=== PATIENT | female | born 1935 | race Caucasian/White ===

== ENCOUNTER 2017-05-09 10:31 | Inpatient (IN) | payer MEDICARE ==
[2017-05-09] VITALS (7 sets, daily range): BP systolic 111–185; BP diastolic 53–81; PULSE 68–89; RESP 16–18; TEMP 97.7–98.2; O2SAT 97–100
[~2017-05-09] VITALS: Ht 157.5 cm; Wt 94.4 kg
[~2017-05-09 10:31] MED LIST: ALPR0.5T3 PO; ASPI325T PO; CYAN100017 PO; FLON0.053; HYDR-1530 PO; HYDR-2768 PO; MAGN500T4 PO; MECL25CH PO; MULT-65 PO; ONDA4TAB7 PO; PROBCAP4 PO; ROPI2TAB23 PO; VITA400D PO
[2017-05-09] MEDS ORDERED: ZOFR8TAB PO (11:16)
[2017-05-09] MEDS ORDERED: FLUT1SPR5 EACH NARE (11:16)
[2017-05-09] MEDS ORDERED: ALDA50TA2 PO (11:16)
[2017-05-09] MEDS ORDERED: ASPI1TAB73 PO (11:16)
[2017-05-09] MEDS ORDERED: APIX5TAB PO (11:16)
[2017-05-09] MEDS ORDERED: REQU5TAB PO (11:16)
[2017-05-09] MEDS ORDERED: PYRI100T PO (11:16)
[2017-05-09] MEDS ORDERED: POTA10TA2 PO (11:16)
[2017-05-09] MEDS ORDERED: HYDR-3366 PO (11:16)
[2017-05-09] MEDS ORDERED: BUME1TAB PO (11:16)
[2017-05-09] MEDS ORDERED: PROT40TA PO (11:16)
[2017-05-09] MEDS ORDERED: METO25TA3 PO (11:16)
[2017-05-09] MEDS ORDERED: MAXA10TA2 PO (11:16)
[2017-05-09] MEDS ORDERED: LIPI40TA PO (11:16)
[2017-05-09] MEDS ORDERED: ESSE250T PO (11:16)
[2017-05-09] MEDS ORDERED: SODIUM CHLORIDE 0.9% FLUSH 10 ML FLUSH IVF PRN (11:30)
--- NOTE | 2017-05-09 11:40 | PD ---
HPI Chief Complaint: Syncope/Near-Syncope Time Seen by Provider: 10:50 Travel History International Travel<30 days: No Contact w/Intl Traveler<30days: No Traveled to known affect area: No History of Present Illness HPI Patient is an 82-year-old female who presents to emergency room with her son with multiple complaints. Patient reports that since last night, she had 3 "blackout spells." Patient reports that she woke up in the middle of night and was trying to get out of the bed, patient reports that she got out of bed slowly and ended up falling and hitting her face on the bottom foot of the bed. Reports that this happened twice last night. Reports that when she had her black out spells, she is "out" for about 1 minute and then wakes up on the floor. Reports that she lives at home by herself and has had trouble getting herself up because she has increased weakness after she has these episodes. She reports that she has had multiple syncopal episodes throughout the past few months, reports that she thinks that the syncopal episodes have been ongoing since she had her heart valve replacement by Dr. Rodrigues in December 2016@ [facility]. Patient denies any chest pain or shortness of breath or headaches and these episodes. 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 Reports that she has been admitted to the hospital twice for a week for IV antibiotics for treatment of her leg cellulitis, that after she leaves the hospital, the cellulitis will return. Patient did see an infectious disease doctor who told her that she did not have lower extremity cellulitis. Patient reports that she was seen at [facility] at the end of April for her blackout spells and for her lower extremity edema and redness, she was diagnosed with cellulitis and was sent home with a prescription for doxycycline which she has 3 days left of antibiotic treatment. Patient denies any fevers or chills, denies any nausea or vomiting this time. Patient with no other complaints. PFSH Past Medical History Hx Anticoagulant Therapy: Yes (ELIQUIS) Cancer: No Cardiovascular Problems: Yes Diabetes: No Endocrine: No Gastrointestinal Disorders: No Genitourinary: No Hepatitis: No Hiatal Hernia: No Hypertension: Yes Immune Disorder: Yes (fibromyalgia ) Musculoskeletal: Yes (fibromyalgia, arthritis ) Neurologic: Yes (hx of stroke ) Respiratory: No Thyroid Disease: Yes (when ) ?: Not Menopausal: Yes Past Surgical History AICD: No Cardiac Surgery: No Ear Surgery: Yes (PE tubes x 10 ) Eye Surgery: Yes (bilateral chalazion sx ) Genitourinary Surgery: Yes (hysterectom 1976) Joint Replacement: Yes (R knee, L shoulder ) Oral Surgery: No Pacemaker: No Thoracic Surgery: No Other Surgery: Yes Social History Alcohol Use: No Tobacco Use: No Substance Use: No Allergies-Medications (Allergen,Severity, Reaction): Coded Allergies: Biaxin (Verified Allergy, Severe, nausea, vomiting, 04/03/14) Celebrex (Verified Allergy, Intermediate, hives, 04/03/14) Percocet (Verified Allergy, Intermediate, hives, 04/03/14) Vioxx (Verified Allergy, Intermediate, hives, 04/03/14) Reported Meds & Prescriptions Reported Meds & Active Scripts Active Reported Magnesium 250 Mg Tab 250 Mg PO BID Vitamin B-6 (Pyridoxine HCl) 100 Mg Tab 100 Mg PO DAILY Potassium Chloride ER (Potassium Chloride) 10 Meq Tab 20 Meq PO BID Bumetanide 1 Mg Tab 1 Mg PO DAILY Eliquis (Apixaban) 5 Mg Tab 5 Mg PO BID Requip (Ropinirole) 5 Mg Tab 5 Mg PO TID Lipitor (Atorvastatin Calcium) 40 Mg Tab 40 Mg PO HS Protonix (Pantoprazole Sodium) 40 Mg Tab 40 Mg PO TID PRN Metoprolol Tartrate 25 Mg Tab 25 Mg PO BID Maxalt (Rizatriptan Benzoate) 10 Mg Tab 10 Mg PO AT ONSET PRN May repeat 1 time in 2hrs if 1st dose ineffective Zofran (Ondansetron HCl) 8 Mg Tab 8 Mg PO TID PRN [place] (Hydrocodone-Acetaminophen) 10-325 Mg Tab 1 Tab PO Q6H PRN Caitlin Aspirin EC Low Dose (Aspirin) 81 Mg Tabdr 81 Mg PO DAILY Aldactone (Spironolactone) 50 Mg Tab 50 Mg PO BID Flonase Nasal Ethel (Fluticasone Nasal Ethel) 50 Mcg/Act Ethel 2 Ethel EACH NARE DAILY Review of Systems General / Constitutional: No: Fever, Chills Eyes: No: Visual changes HENT: Positive: Headaches, Lightheadedness Cardiovascular: No: Chest Pain or Discomfort, Palpitations, Irregular Rhythm, Tachycardia Respiratory: No: Cough, Shortness of Breath Gastrointestinal: No: Abdominal Pain Genitourinary: No: Dysuria Musculoskeletal: No: Pain Skin: Positive Other (LE edema b/l ), No Rash Neurologic: Positive: Weakness, Dizziness, Syncope Psychiatric: No: Depression Endocrine: No: Polydipsia Hematologic/Lymphatic: No: Easy Bruising Physical Exam Narrative GENERAL: No acute distress, nontoxic SKIN: Focused skin assessment warm/dry. Patient with superfical abrasion to left side of face HEAD: Atraumatic. Normocephalic. EYES: Pupils equal and round. No scleral icterus. No injection or drainage. ENT: No nasal bleeding or discharge. Mucous membranes pink and moist. NECK: Trachea midline. No JVD. CARDIOVASCULAR: Regular rate and rhythm. No murmur appreciated. RESPIRATORY: No accessory muscle use. Clear to auscultation. Breath sounds equal bilaterally. GASTROINTESTINAL: Abdomen soft, non-tender, nondistended. Hepatic and splenic margins not palpable. MUSCULOSKELETAL: No obvious deformities. No clubbing. No cyanosis. +3 Edema b/ l with increased redness and warmth to b/l le's, patient has increased warmth to RLE, pulses intact, neurovascularly intact NEUROLOGICAL: Awake and alert. No obvious cranial nerve deficits. Motor grossly within normal limits. Normal speech. PSYCHIATRIC: Appropriate mood and affect; insight and judgment normal. Data Data Last Documented VS Vital Signs Date Time Temp Pulse Resp B/P Pulse Ox O2 Delivery O2 Flow Rate FiO2 05/09/17 11:28 97 Nasal Cannula 2 05/09/17 10:57 98.0 79 18 185/81 Orders Electrocardiogram (05/09/17 ) Complete Blood Count With Diff (05/09/17 11:25) Comprehensive Metabolic Panel (05/09/17 11:25) Magnesium (Mg) (05/09/17 11:25) B-Type Natriuretic Peptide (05/09/17 11:25) Ckmb (Isoenzyme) Profile (05/09/17 11:25) Troponin I (05/09/17 11:25) Act Partial Throm Time (Ptt) (05/09/17 11:25) Prothrombin Time / Inr (Pt) (05/09/17 11:25) Urinalysis - C+S If Indicated (05/09/17 11:25) Chest, Single Ap (05/09/17 11:25) Ct Brain W/O Iv Contrast(Rout) (05/09/17 11:25) Ecg Monitoring (05/09/17 11:25) Iv Access Insert/Monitor (05/09/17 11:25) Oximetry (05/09/17 11:25) Sodium Chloride 0.9% Flush (Ns Flush) (05/09/17 11:30) CKMB (05/09/17 11:32) CKMB% (05/09/17 11:32) Orthostatic Vital Signs (05/09/17 13:04) Labs Laboratory Tests Test 05/09/17 05/09/17 11:32 11:44 White Blood Count 10.2 TH/MM3 Red Blood Count 4.12 MIL/MM3 Hemoglobin 11.1 GM/DL Hematocrit 35.1 % Mean Corpuscular Volume 85.3 FL Mean Corpuscular Hemoglobin 26.9 PG Mean Corpuscular Hemoglobin 31.5 % Concent Red Cell Distribution Width 16.5 % Platelet Count 262 TH/MM3 Mean Platelet Volume 7.2 FL Neutrophils (%) (Auto) 68.1 % Lymphocytes (%) (Auto) 22.7 % Monocytes (%) (Auto) 8.5 % Eosinophils (%) (Auto) 0.2 % Basophils (%) (Auto) 0.5 % Neutrophils # (Auto) 6.9 TH/MM3 Lymphocytes # (Auto) 2.3 TH/MM3 Monocytes # (Auto) 0.9 TH/MM3 Eosinophils # (Auto) 0.0 TH/MM3 Basophils # (Auto) 0.1 TH/MM3 CBC Comment DIFF FINAL Differential Comment Prothrombin Time 11.1 SEC Prothromb Time International 1.0 RATIO Ratio Activated Partial 27.5 SEC Thromboplast Time Sodium Level 141 MEQ/L Potassium Level 3.7 MEQ/L Chloride Level 109 MEQ/L Carbon Dioxide Level 24.6 MEQ/L Anion Gap 7 MEQ/L Blood Urea Nitrogen 25 MG/DL Creatinine 0.72 MG/DL Estimat Glomerular Filtration 78 ML/MIN Rate Random Glucose 99 MG/DL Calcium Level 9.5 MG/DL Magnesium Level 1.9 MG/DL Total Bilirubin 0.5 MG/DL Aspartate Amino Transf 27 U/L (AST/SGOT) Alanine Aminotransferase 24 U/L (ALT/SGPT) Alkaline Phosphatase 112 U/L Total Creatine Kinase 150 U/L Creatine Kinase MB 4.2 NG/ML Troponin I LESS THAN 0.02 NG/ML B-Type Natriuretic Peptide 101 PG/ML Total Protein 7.1 GM/DL Albumin 3.4 GM/DL Urine Color YELLOW Urine Turbidity HAZY Urine pH 5.5 Urine Specific [place] 1.033 Urine Protein TRACE mg/dL Urine Glucose (UA) NEG mg/dL Urine Ketones TRACE mg/dL Urine Occult Blood NEG Urine Nitrite NEG Urine Bilirubin NEG Urine Urobilinogen LESS THAN 2.0 MG/DL Urine Leukocyte Esterase TRACE Urine RBC 2 /hpf Urine WBC 3 /hpf Urine Squamous Epithelial 5 /hpf Cells Urine Calcium Oxalate Crystals FEW /hpf Urine Mucus FEW /lpf Microscopic Urinalysis Comment CULT NOT INDICATED MDM Medical Decision Making Medical Screen Exam Complete: Yes Emergency Medical Condition: Yes Interpretation(s) EKG at 11:00: NSR at 72bpm, qt/qtc: 423/448, rbbb, no acute st or t wave changes Vital Signs Date Time Temp Pulse Resp B/P Pulse Ox O2 Delivery O2 Flow Rate FiO2 05/09/17 11:28 97 Nasal Cannula 2 05/09/17 10:57 98.0 79 18 185/81 99 05/09/17 10:54 86 18 98 Room Air 05/09/17 10:35 98.2 89 16 143/68 98 Differential Diagnosis Differential includes intracranial hemorrhage, arrhythmia, ACS, pneumonia, cellulitis, infection, electrolyte abnormality Narrative Course 82-year-old female who presents to emergency room with multiple complaints. Patient reports that she had 3 syncopal episodes last night, that she did fall and hit her head on the edge of her bed. Patient reports loss of consciousness for only a minute, reports that she currently is on Eliquis. Patient also complaining of increased redness and swelling to her lower extremities, reports history of multiple DVTs in the past, redness has been there since August 2016 reports that she's been treated multiple times for cellulitis. Vital Signs Date Time Temp Pulse Resp B/P Pulse Ox O2 Delivery O2 Flow Rate FiO2 05/09/17 11:28 97 Nasal Cannula 2 05/09/17 10:57 98.0 79 18 185/81 99 05/09/17 10:54 86 18 98 Room Air 05/09/17 10:35 98.2 89 16 143/[address] of the head, will obtain lab work including cardiac enzymes, x -ray chest ordered. Vital Signs Date Time Temp Pulse Resp B/P Pulse Ox O2 Delivery O2 Flow Rate FiO2 05/09/17 11:28 97 Nasal Cannula 2 05/09/17 10:57 98.0 79 18 185/81 99 05/09/17 10:54 86 18 98 Room Air 05/09/17 10:35 98.2 89 16 143/68 98 Laboratory Tests Test 05/09/17 05/09/17 11:32 11:44 White Blood Count 10.2 TH/MM3 (4.0-11.0) Red Blood Count 4.12 MIL/MM3 (4.00-5.30) Hemoglobin 11.1 GM/DL (11.6-15.3) Hematocrit 35.1 % (35.0-46.0) Mean Corpuscular Volume 85.3 FL (80.0-100.0) Mean Corpuscular Hemoglobin 26.9 PG (27.0-34.0) Mean Corpuscular Hemoglobin 31.5 % Concent (32.0-36.0) Red Cell Distribution Width 16.5 % (11.6-17.2) Platelet Count 262 TH/MM3 (150-450) Mean Platelet Volume 7.2 FL (7.0-11.0) Neutrophils (%) (Auto) 68.1 % (16.0-70.0) Lymphocytes (%) (Auto) 22.7 % (9.0-44.0) Monocytes (%) (Auto) 8.5 % (0.0-8.0) Eosinophils (%) (Auto) 0.2 % (0.0-4.0) Basophils (%) (Auto) 0.5 % (0.0-2.0) Neutrophils # (Auto) 6.9 TH/MM3 (1.8-7.7) Lymphocytes # (Auto) 2.3 TH/MM3 (1.0-4.8) Monocytes # (Auto) 0.9 TH/MM3 (0-0.9) Eosinophils # (Auto) 0.0 TH/MM3 (0-0.4) Basophils # (Auto) 0.1 TH/MM3 (0-0.2) CBC Comment DIFF FINAL Differential Comment Prothrombin Time 11.1 SEC (9.8-11.6) Prothromb Time International 1.0 RATIO Ratio Activated Partial 27.5 SEC Thromboplast Time (24.3-30.1) Sodium Level 141 MEQ/L (136-145) Potassium Level 3.7 MEQ/L (3.5-5.1) Chloride Level 109 MEQ/L (98-107) Carbon Dioxide Level 24.6 MEQ/L (21.0-32.0) Anion Gap 7 MEQ/L (5-15) Blood Urea Nitrogen 25 MG/DL (7-18) Creatinine 0.72 MG/DL (0.50-1.00) Estimat Glomerular Filtration 78 ML/MIN (>89) Rate Random Glucose 99 MG/DL (74-106) Calcium Level 9.5 MG/DL (8.5-10.1) Magnesium Level 1.9 MG/DL (1.5-2.5) Total Bilirubin 0.5 MG/DL (0.2-1.0) Aspartate Amino Transf 27 U/L (15-37) (AST/SGOT) Alanine Aminotransferase 24 U/L (10-53) (ALT/SGPT) Alkaline Phosphatase 112 U/L (45-117) Total Creatine Kinase 150 U/L (26-192) Creatine Kinase MB 4.2 NG/ML (0.5-3.6) Troponin I LESS THAN 0.02 NG/ML (0.02-0.05) B-Type Natriuretic Peptide 101 PG/ML (0-100) Total Protein 7.1 GM/DL (6.4-8.2) Albumin 3.4 GM/DL (3.4-5.0) Urine Color YELLOW (YELLW/STRAW) Urine Turbidity HAZY (CLEAR) Urine pH 5.5 (5.0-8.5) Urine Specific [place] 1.033 (1.002-1.035) Urine Protein TRACE mg/dL (NEG-TRACE) Urine Glucose (UA) NEG mg/dL (NEG) Urine Ketones TRACE mg/dL (NEG) Urine Occult Blood NEG (NEG) Urine Nitrite NEG (NEG) Urine Bilirubin NEG (NEG) Urine Urobilinogen LESS THAN 2.0 MG/DL (LESS THAN 2.0) Urine Leukocyte Esterase TRACE (NEG) Urine RBC 2 /hpf (0-3) Urine WBC 3 /hpf (0-5) Urine Squamous Epithelial 5 /hpf (0-5) Cells Urine Calcium Oxalate Crystals FEW /hpf (NONE) Urine Mucus FEW /lpf (OCC) Microscopic Urinalysis Comment CULT NOT INDICATED Last Impressions Head CT 05/09/17 1125 Signed Impressions: Service Date/Time: Tuesday, May 09, 2017 12:21 - CONCLUSION: 1. 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 2. Nothing acute Ibrahima Pompa MD Chest X-Ray 05/09/17 1125 Signed Impressions: Service Date/Time: Tuesday, May 09, 2017 11:34 - CONCLUSION: Normal examination status post median sternotomy. Jabier Pringle MD I reviewed all labs and all studies with patient in detail, patient observation for syncope evaluation. I also discussed with Dr. Flowers consideration for consideration for ID consult as patient has redness and swelling to b/l le's since August 2016. Plan to hold on antibiotic treatment at this time as patient is currently receiving doxycycline for her leg cellulitis. Patient has been pancultured Dr. Flowers accepts pt to service Physician Communication Physician Communication case reviewed with dr. silverio who accepts pt to service Diagnosis Primary Impression: Syncope and collapse Additional Impressions: Leg edema Cellulitis of leg, right Admitting Information Admitting Physician Requests: Observation Sylvie Arias DO May 09, 2017 11:40
[2017-05-09 11:56] LABS: AUTOMATED NEUTROPHIL # 6.9 TH/MM3 (1.8-7.7); BASOPHIL # 0.1 TH/MM3 (0-0.2); BASOPHIL % 0.5 % (0.0-2.0); EOSINOPHIL % 0.2 % (0.0-4.0); HEMATOCRIT 35.1 % (35.0-46.0); HEMO FLAGS DIFF FINAL; LYMPH % 22.7 % (9.0-44.0); LYMPHOCYTE # 2.3 TH/MM3 (1.0-4.8); MEAN CELL VOLUME 85.3 FL (80.0-100.0); MEAN CORPUSCULAR HEMOGLOBIN 26.9 PG (27.0-34.0); MEAN CORPUSCULAR HGB CONC 31.5 % (32.0-36.0); MONO % 8.5 % (0.0-8.0); NEUT % 68.1 % (16.0-70.0); PLATELET COUNT 262 TH/MM3 (150-450); RED BLOOD COUNT 4.12 MIL/MM3 (4.00-5.30); RED CELL DISTRIBUTION WIDTH 16.5 % (11.6-17.2); WHITE BLOOD COUNT 10.2 TH/MM3 (4.0-11.0)
--- NOTE | 2017-05-09 11:59 | RADRPT ---
EXAM DATE/TIME: 05/09/2017 11:34 [facility] COMPARISON: No previous studies available for comparison. INDICATIONS : Syncopal episode. Weakness. MEDICAL HISTORY : None. SURGICAL HISTORY : CABG. Fusion, cervical. Left shoulder. ENCOUNTER: Initial ACUITY: 1 day PAIN SCORE: 0/10 LOCATION: Bilateral chest FINDINGS: A single view of the chest demonstrates the lungs to be symmetrically aerated without evidence of mas s, infiltrate or effusion. Patient's had previous cervical fusion and left shoulder hemiarthroplasty. Numerous sternal wires are intact. The cardiomediastinal contours are unremarkable. Osseous struct ures are intact. CONCLUSION: Normal examination status post median sternotomy. Jabier Pringle MD on May 09, 2017 at 11:57 Board Certified Radiologist. This report was verified electronically.
[2017-05-09 12:05] LABS: APTT (PATIENT) 27.5 SEC (24.3-30.1); PROTHROMBIN TIME - PATIENT 11.1 SEC (9.8-11.6)
[2017-05-09 12:16] LABS: ANION GAP 7 MEQ/L (5-15); AST (GOT) 27 U/L (15-37); BICARBONATE 24.6 MEQ/L (21.0-32.0); BLOOD UREA NITROGEN 25 MG/DL (7-18); CHLORIDE 109 MEQ/L (98-107); GLOMERULAR FILTRATION RATE 78 ML/MIN (>89); MAGNESIUM 1.9 MG/DL (1.5-2.5); POTASSIUM 3.7 MEQ/L (3.5-5.1); SODIUM (NA) 141 MEQ/L (136-145)
[2017-05-09 12:21] LABS: ALKALINE PHOSPHATASE 112 U/L (45-117); ALT (GPT) 24 U/L (10-53); CREATINE KINASE 150 U/L (26-192); TOTAL BILIRUBIN ADULT 0.5 MG/DL (0.2-1.0)
[2017-05-09 12:33] LABS: CKMB 4.2 NG/ML (0.5-3.6)
--- NOTE | 2017-05-09 12:36 | RADRPT ---
EXAM DATE/TIME: 05/09/2017 12:21 [facility] COMPARISON: No previous studies available for comparison. INDICATIONS : 3 syncopal episodes this morning.Inj lower ridge of right orbit. RADIATION DOSE: 59.08 CTDIvol (mGy) MEDICAL HISTORY : Cardiovascular disease. Hypertension. Fibromyalgia SURGICAL HISTORY : Hysterectomy. Heart surgery. ENCOUNTER: Initial ACUITY: 1 day PAIN SCALE: 0/10 LOCATION: Left cranial TECHNIQUE: Multiple contiguous axial images were obtained of the head. Using automated exposure control and adj ustment of the mA and/or kV according to patient size, radiation dose was kept as low as reasonably a chievable to obtain optimal diagnostic quality images. DICOM format image data is available electro nically for review and comparison. FINDINGS: CEREBRUM: The ventricles are normal for age. Subtle areas of diminished attenuation in the deep white matter t racts are characteristic of some degree of small vessel ischemic demyelination or old white matter in farct. No evidence of midline shift, mass lesion, hemorrhage or acute infarction. No extra-axial flu id collections are seen. POSTERIOR FOSSA: The cerebellum and brainstem are intact. The 4th ventricle is midline. The cerebellopontine angle i s unremarkable. EXTRACRANIAL: The visualized portion of the orbits is intact. SKULL: The calvaria is intact. No evidence of skull fracture. CONCLUSION: 1. 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 2. Nothing acute Ibrahima Pompa MD on May 09, 2017 at 12:33 Board Certified Radiologist. This report was verified electronically.
[2017-05-09 12:42] LABS: BLOOD, URINE NEG (NEG); CALCIUM OXALATE CRYSTALS,URINE FEW /hpf; COMMENT (UR) CULT NOT INDICATED; CULTURE IF INDICATED CULT NOT INDICATED; GLUCOSE,URINE NEG (NEG); KETONE, URINE TRACE mg/dL (NEG); MUCUS URINE FEW /lpf (OCC); NITRITE,URINE NEG (NEG); PH, URINE 5.5 (5.0-8.5); SQUAMOUS EPITHELIAL CELL URINE 5 /hpf (0-5); URINE COLOR YELLOW (YELLW/STRAW)
[2017-05-09] MEDS ORDERED: NALOXONE HCL 0.4 MG/ML AMP IV PRN (13:15)
[2017-05-09] MEDS ORDERED: SODIUM CHLORIDE 0.9% FLUSH 10 ML FLUSH IV FLUSH PRN (13:15)
[2017-05-09] MEDS ORDERED: LACTULOSE SYRUP 20 GM/30 ML CUP PO PRN (13:15)
[2017-05-09] MEDS: SODIUM CHLOR 0.45% 1000 ML INJ 1,000 ML IV SCH (13:32)
[2017-05-09] MEDS ORDERED: BISACODYL 10 MG SUPP RECTAL PRN (14:00)
[2017-05-09] MEDS ORDERED: PANTOPRAZOLE SOD 40 MG DELAYED RELEASE TAB PO PRN (14:30)
--- NOTE | 2017-05-09 14:57 | HHI.PR ---
Objective Objective Results - Vital Signs Date Time Temp Pulse Resp B/P Pulse Ox O2 Delivery O2 Flow Rate FiO2 05/09/17 13:43 81 18 118/64 77 18 111/53 05/09/17 11:28 97 Nasal Cannula 2 05/09/17 10:57 98.0 79 18 185/81 99 05/09/17 10:54 86 18 98 Room Air 05/09/17 10:35 98.2 89 16 143/68 98 Result Diagram: 05/09/17 1132 05/09/17 1132 A/P Assessment and Plan [id number] Eladia Armenta May 09, 2017 14:57
[2017-05-09] MEDS: cefTRIAXone INJ 1,000 MG in SODIUM CHLORIDE 0.9% INJ 100 ML IV SCH (15:02)
[2017-05-09] MEDS: ACETAMINOPHEN/HYDROcodone 325 MG/10 MG TAB PO PRN ×2 (15:06→22:50)
[2017-05-09] MEDS ORDERED: ONDANSETRON ODT 4 MG TAB PO PRN (15:15)
[2017-05-09] MEDS ORDERED: RIZATRIPTAN 10 MG PO PRN (15:15)
--- NOTE | 2017-05-09 15:48 | MH ---
cc: WINSTON LAND MD DATE OF ADMISSION: 05/09/2017 TRAVEL IN THE LAST THIRTY DAYS: None. HISTORY OF PRESENT ILLNESS: This is a pleasant 82-year-old white female who was brought to the emergency room by her son with complaint of blackout spells. She notes at least three blackout spells in the last 24 hours. She states that when she stands up to get out of bed, she will black out for approximately a minute and wake up on the floor. She does have a very small abrasion to the left side of her cheek where she was wearing her glasses and had a small injury when she fell. The patient was initially unaware that she was having any blackouts but states that when her children were around, they noticed that she was losing consciousness for a brief period of time. She notes some other syncopal episodes over the past few months and states that there is no particular position that she is in when these episodes hit her. She has been followed per her primary care physician on a regular basis. The patient also had a heart valve replacement done December of 2016. She was in a rehab facility after the valve replacement and did well according to her and her family. The patient also notes some swelling and edema in her lower extremities bilateral. She does have cellulitis positive for erythema and fever from the knees down. She has been treated with p.o. doxycycline and has three days left of the antibiotic treatment but does not feel like it is doing any good at this point in time. The patient according to the record did see an infectious disease doctor and has been seen at [facility] for some of her same symptoms. Currently the patient denies any headaches. No fever. She has been taking her medications as prescribed. No nausea. No vomiting. No change in appetite. She does have exertional dyspnea. She states that she cannot walk to her mailbox for the past few months and that has increasingly gotten worse. The distance to her mailbox is approximately 100 yards. The patient does have a walker at home and states that she has problems with balance, especially since her heart surgery. The patient has active infection in both ears and has had tubes placed in her ears multiple times. She currently has a tube in her right ear and the left ear tube came out partially and had to be removed by her ENT. The patient is alert, oriented, a fairly good historian, talkative and anxious over her current condition and disease. The patient denies any chest pain and the patient denies any warning of her blackout spells. Her son does note an unstable blood pressure when checked at home and the patient has a history of mini strokes from several years ago. The patient denies any fever. No diarrhea. No constipation. She is positive for debility. PAST MEDICAL HISTORY: 1. Cardiovascular disease. 2. Valvular disease. 3. Fibromyalgia. 4. Arthritis. 5. History of mini strokes. 6. Thyroid disease, -related. 7. Hypertension. 8. Anticoagulant therapy. The patient takes Eliquis. 9. Mini strokes. PAST SURGICAL HISTORY: 1. Valve replacement. Son thinks was the aortic valve in December of 2016. 2. Hysterectomy. 3. Right knee and left shoulder joint replacement surgeries. 4. Tubes in her ears x10 bilateral. 5. Chalazion symptoms. ALLERGIES: 1. CELEBREX. 2. BIAXIN. 3. PERCOCET. 4. VIOXX. REPORTED MEDICATIONS: 1. Magnesium. 2. Vitamin B6. 3. Potassium. 4. Bumex. 5. Eliquis. 6. Requip. 7. Lipitor. 8. Protonix. 9. Metoprolol. 10. Maxalt. 11. Zofran. 12. Chantilly. 13. Caitlin aspirin. 14. Aldactone. 15. Flonase. SOCIAL HISTORY: The patient has been for many years. She lives alone. She does have supportive children. Denies any use ever of tobacco. No tobacco, no alcohol no illicit drugs. REVIEW OF SYSTEMS: A fourteen point review was obtained and positives were noted in the history of present illness which include her multiple blackout spells, unstable blood pressure, history of mini strokes, shortness of breath exertional, balance issues, debility, obesity, cardiovascular disease, bilateral ear infections with tube placements, recent antibiotic use with doxycycline, cellulitis bilateral lower extremities, anxiety. Other systems negative or unremarkable. PHYSICAL EXAMINATION: VITAL SIGNS: Temperature is 98, pulse 79, respirations 18, blood pressure labile 143/68 on admission and an hour later, 185/81 and now 111/53 which is supine, sitting is 118/64. 02 saturation 97 currently on nasal cannula at 2 liters. GENERAL: Obese white female looks to be younger than her stated age resting in the bed, alert, oriented, cooperative and a good historian. SKIN: Pale. [place] mucous membranes. Warm and dry. Lower leg erythema and edema noted bilateral. HEAD, EYES, EARS, NOSE, THROAT: Normocephalic. Small abrasion noted at the left cheek area with minimal amount of bruising from one of her falls where she hit her glasses into her cheek, otherwise no other bumps or bruises on her head. Pupils equal, round and reactive to light and accommodation. The mucous membranes are slightly dry. Tongue is midline. NECK: The neck is supple. CARDIOVASCULAR: S1 and S2. Rhythm is regular. Murmur noted. 3+ edema lower extremities. Extremities are warm to touch. Feet are warm. Pulses are intact. PULMONARY: Lung sounds essentially clear anteriorly and posteriorly with no wheezes, rales or rhonchi. ABDOMEN: Round, soft, nontender, nondistended. Active bowel sounds. Nondistended. MUSCULOSKELETAL: Can move her extremities with purpose. Her hand field captain are equal and strong. The patient has been ambulating, can overcome resistance with her lower extremities. NEUROLOGIC: Alert and oriented and a good historian. Speech is clear. PSYCHIATRIC: Mood and affect are appropriate. Mild anxiety. Talkative. DIAGNOSTIC DATA: White blood cell count 10.2, RBCs 4.12, hemoglobin 11.1, hematocrit 35.1, MCHC 31.5, MCH 26.9, platelet count 262,000, monocyte count 8.5. All other differential is normal. Sodium 141, potassium 3.7, chloride 109, carbon dioxide 24.6. Anion gap 7, BUN 25, creatinine 0.72. Troponin less than 0.02. CK-MB 4.2. BNP 101. Total protein 7.1. Albumin 3.4. PT and INR is 1. Urine is yellow, hazy, pH of 5.5, specific gravity 1.033, trace of protein, negative glucose, trace of ketones. Occult blood, nitrites, bilirubin, leukocyte esterase is trace. The occult blood, nitrites and bilirubin are negative. Culture is not indicated. Head CT shows mild deep white matter tracts, small vessel ischemic myelinization, old white matter tract infarcts, nothing acute. Chest x-ray shows normal exam, status post median sternotomy. ASSESSMENT: 1. Syncope and collapse. 2. Cellulitis of the right leg and left leg. 3. Lower extremity edema. 4. Anemia, mild. 5. Acute kidney injury with probable mild dehydration. 6. Elevated BNP. 7. Recent history of valvular surgery. 8. History of fibromyalgia and arthritis. PLAN: 1. Admit initially for observation. 2. Will monitor her labs. 3. Reconcile medications needed. 4. Place her on a heart-healthy diet. 5. Continue with telemetry monitoring. 6. Activity to be out of bed but only with assistance. 7. Vital signs are q 4 and as needed. 8. Will consult infectious disease for their expert opinion as well as cardiology for their expert opinion. 9. The patient has been placed on Rocephin IV q. 24. 10. Will consult neurology and get an EEG study. 11. Within the next 24 hours will monitor the patient's plan of care and her hospital course needed based on the findings. We appreciate the expert opinion of these multiple physicians in the care of Ms. Carbajal. To my knowledge, she is full code, full aggressive care. We will continue to follow and update. Dictated by AFSANEH Rivers. MD SHELBY Linares/SCHUYLER /2:46 PM /3:26 PM seen, examined by myself, Dr Land, today Discussed with patient and family Admitted with several episodes of syncope, independent from position Swelling and redness in both lower extremities Consult cardiology Neurology Infectious disease EEG Empiric IV antibiotics Follow INR, keep between 2 and 3 Discussed with mid level provider The exam, history, and the medical decision-making described in the above note were completed with the assistance of the mid-level provider. I reviewed the findings presented. I attest that I had a [id number] encounter with the patient on the same day, and personally performed and documented my assessment and findings in the medical record. STANLEY
[2017-05-09 16:50] LABS: CREATINE KINASE 108 U/L (26-192)
[2017-05-09] MEDS ORDERED: ROPINIROLE 5 MG PO SCH (18:00)
--- NOTE | 2017-05-09 18:24 | MB ---
cc: TUNDE ALLEN MD DATE OF CONSULTATION 05/09/[address] Valdes. REASON FOR CONSULTATION Cellulitis of the lower extremities. HISTORY OF PRESENT ILLNESS This is an 82-year-old white female who came to the emergency department because of syncope. The patient has had "blackout spells" including falling. She hit her face at the foot of the bed during one of these falls. The patient is a fair historian. She notes that she has had cellulitis of the legs since August 2016 and that she has been on antibiotics for treatment. She states to me "it just does not go away". She was recently given a prescription for doxycycline and is noted to have been taking it without improvement. This consultation is requested for cellulitis of the lower extremities. She is afebrile. Her white blood cell count is normal. The patient has diffuse edema of the lower extremities and erythema which is confluent on both lower extremities. She denies fever or chills. The patient states that she gets dyspnea with exertion and that when she tries to get to her mailbox she gets very tired. She denies any scrapes or bruises to her legs. PAST MEDICAL HISTORY 1. Cardiovascular disease. 2. History of cardiac valve replacement. Unclear which valve was replaced in December 2015. Details are not yet available. 3. Fibromyalgia. 4. Arthritis. 5. Hypertension. 6. Mini strokes. 7. Hysterectomy. 8. Right knee replacement. 9. Left shoulder replacement. ALLERGIES BIAXIN, CELEBREX, PERCOCET, VIOXX. MEDICATIONS 1. Aspirin. 2. Bumetanide. 3. Paradoxin. 4. Jyoti-Colace. 5. Eliquis. 6. Lipitor. 7. Lopressor. 8. Potassium. 9. Aldactone. 10. Ceftriaxone. SOCIAL HISTORY No tobacco. Rare alcohol. No illicit drugs. FAMILY HISTORY Noncontributory. REVIEW OF SYSTEMS CONSTITUTIONAL: No fever or chills. The patient notes dizzy spells. HEENT: No visual blurring, no diplopia. Denies difficulty swallowing or soreness of the throat. Denies neck pain or swelling. CARDIOVASCULAR: Denies chest pain. Denies palpitation. RESPIRATORY: Denies cough or shortness of breath but notes dyspnea on exertion. GASTROINTESTINAL: No nausea, vomiting, abdominal pain or diarrhea. GENITOURINARY: No urgency, frequency or dysuria. HEMATOLOGIC: : Easy bruising. ENDOCRINE: No polyuria, polydipsia. MUSCULOSKELETAL: No muscle aches or pains. INTEGUMENT: Significant for redness of the lower extremities and edema. NEUROLOGIC: Significant for blackout spells. PSYCHIATRIC: No depression or mood changes. PHYSICAL EXAMINATION GENERAL: This is a pleasant female in no acute distress. She is awake and she is alert and oriented. VITAL SIGNS: Temperature 97.7, BP 120/62, respirations 16, heart rate 77. HEENT: Head reveals a bruise at the left side of her cheek. Extraocular movements grossly intact. Pupils reactive to light. No icterus. Oropharynx moist mucosa. No lesions. Neck9 Supple without adenopathy. LUNGS: Clear breath sounds which are diminished. HEART: Regular rate and rhythm without murmurs, rubs or gallops. ABDOMEN: Bowel sounds present, soft, nontender. No masses palpable. RECTAL: Not performed. EXTREMITIES: Diffuse edema of both legs at the tibia. This is confluent and warm. There is weeping of the skin with slight serous ooze at the left lateral tibia. 3+ edema of the lower extremities. SKIN: No diffuse rash. The patient has two excoriated, red areas at the left upper back, one with a superficial dry ulcerated area. These are approximately 0.5 cm diameter. NEUROLOGIC: Patient awake and alert and oriented. No gross focal findings. LABORATORY DATA WBC 10.2, platelets 262, hemoglobin 11.1, 68% neutrophils, 20% lymphocytes, 8% monocytes. Creatinine 0.72, BUN 25, sodium 141. LFTs normal. IMPRESSION 1. Cellulitis of the lower extremities. 2. Edema of the lower extremities. The patient probably has venous stasis. RECOMMENDATIONS 1. Continue ceftriaxone. 2. Monitor response of the cellulitis. Thank you for this consultation. I will follow the patient's progress along with you. She should also have the legs elevated while in bed. Tunde Allen MD FD/ABHISHEK /5:07 PM /5:53 PM STANLEY
[2017-05-09] MEDS ORDERED: MAGNESIUM HYDROXIDE SUSP 30 ML CUP PO PRN (21:00)
[2017-05-09] MEDS ORDERED: SENNOSIDES 8.6 MG TAB PO PRN (21:00)
[2017-05-09] MEDS: SODIUM CHLORIDE 0.9% FLUSH 10 ML FLUSH IV FLUSH SCH (21:00)
[2017-05-09] MEDS ORDERED: NON-FORMULARY DRUG (Magnesium 250 MG) PO SCH (21:00)
--- NOTE | 2017-05-09 22:01 | PD.CONS ---
HPI Consult Requested By Dr. Valdes Reason for Consult Recurrent syncope Primary Care Physician Cha Bee History of Present Illness Ms Carbajal is a very nice 82-year-old white female, well known to my practice, who was brought to the emergency room by her son with complaint of blackout spells. She notes at least three blackout spells in the last 24 hours. She states that when she stands up to get out of bed, she will black out for approximately a minute and wake up on the floor. She does have a very small abrasion to the left side of her cheek where she was wearing her glasses and had a small injury when she fell. The patient was initially unaware that she was having any blackouts but states that when her children were around, they noticed that she was losing consciousness for a brief period of time. She notes some other syncopal episodes over the past few months and states that there is no particular position that she is in when these episodes hit her. She has been followed per her primary care physician on a regular basis. The patient also had a heart valve replacement done December of 2016. She was in a rehab facility after the valve replacement and did well according to her and her family. The patient also notes some swelling and edema in her lower extremities bilateral. She does have cellulitis positive for erythema and fever from the knees down. She has been treated with p.o. doxycycline and has three days left of the antibiotic treatment but does not feel like it is doing any good at this point in time. The patient according to the record did see an infectious disease doctor and has been seen at [facility] for some of her same symptoms. Currently the patient denies any headaches. No fever. She has been taking her medications as prescribed. No nausea. No vomiting. No change in appetite. She does have exertional dyspnea. She states that she cannot walk to her mailbox for the past few months and that has increasingly gotten worse. The distance to her mailbox is approximately 100 yards. The patient does have a walker at home and states that she has problems with balance, especially since her heart surgery. The patient has active infection in both ears and has had tubes placed in her ears multiple times. She currently has a tube in her right ear and the left ear tube came out partially and had to be removed by her ENT. The patient is alert, oriented, a fairly good historian, talkative and anxious over her current condition and disease. The patient denies any chest pain and the patient denies any warning of her blackout spells. Her son does note an unstable blood pressure when checked at home and the patient has a history of mini strokes from several years ago. Home BP range from 90 to 170. The patient denies any fever. No diarrhea. No constipation. She is positive for debility. Review of Systems Consitutional: COMPLAINS OF: Fatigue, Weight gain Eyes: DENIES: Amaurosis Fugax, Change in vision HEENT: COMPLAINS OF: Lightheadedness Respiratory: COMPLAINS OF: See HPI Past Family Social History Allergies: Coded Allergies: Biaxin (Verified Allergy, Severe, nausea, vomiting, 04/03/14) Celebrex (Verified Allergy, Intermediate, hives, 04/03/14) Percocet (Verified Allergy, Intermediate, hives, 04/03/14) Vioxx (Verified Allergy, Intermediate, hives, 04/03/14) Past Medical History 1. Cardiovascular disease. 2. Valvular disease. 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 Fibromyalgia. 4. 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 5. History of mini strokes. 6. Thyroid disease, -related. 7. Hypertension. 8. hx of DVT 01/2017. The patient takes Eliquis. Past Surgical History 1. Valve replacement. Son thinks was the aortic valve in December of 2016. 2. Hysterectomy. 3. Right knee and left shoulder joint replacement surgeries. 4. Tubes in her ears x10 bilateral. 5. Chalazion symptoms. Reported Medications Reported Meds & Active Scripts Active Reported Magnesium 250 Mg Tab 250 Mg PO BID Vitamin B-6 (Pyridoxine HCl) 100 Mg Tab 100 Mg PO DAILY Potassium Chloride ER (Potassium Chloride) 10 Meq Tab 20 Meq PO BID Bumetanide 1 Mg Tab 1 Mg PO DAILY Eliquis (Apixaban) 5 Mg Tab 5 Mg PO BID Requip (Ropinirole) 5 Mg Tab 5 Mg PO TID Lipitor (Atorvastatin Calcium) 40 Mg Tab 40 Mg PO HS Protonix (Pantoprazole Sodium) 40 Mg Tab 40 Mg PO TID PRN Metoprolol Tartrate 25 Mg Tab 25 Mg PO BID Maxalt (Rizatriptan Benzoate) 10 Mg Tab 10 Mg PO AT ONSET PRN May repeat 1 time in 2hrs if 1st dose ineffective Zofran (Ondansetron HCl) 8 Mg Tab 8 Mg PO TID PRN Kite (Hydrocodone-Acetaminophen) 10-325 Mg Tab 1 Tab PO Q6H PRN Caitlin Aspirin EC Low Dose (Aspirin) 81 Mg Tabdr 81 Mg PO DAILY Aldactone (Spironolactone) 50 Mg Tab 50 Mg PO BID Flonase Nasal [place] (Fluticasone Nasal [place]) 50 Mcg/Act [place] 2 [place] EACH NARE DAILY Active Ordered Medications Current Medications Medications (Trade) Dose Ordered Sig/Cassie Route Start Time Stop Time Status Last Admin Sodium Chloride 2 ml 2 ml UNSCH PRN IVF 05/09/17 11:30 (1/2 NS 1000 ml Inj) 1,000 ml @ 75 mls/hr [id number] IV 05/09/17 13:06 05/09/17 13:32 (NS Flush) 2 ml UNSCH PRN IV FLUSH 05/09/17 13:15 (NS Flush) 2 ml BID IV FLUSH 05/09/17 21:00 (Narcan Inj) 0.4 mg UNSCH PRN IV 05/09/17 13:15 (Jyoti-Colace) 1 tab BID PO 05/09/17 21:00 (Milk Of Magnesia Liq) 30 ml Q12HR PRN PO 05/09/17 21:00 (Senokot) 17.2 mg Q12HR PRN PO 05/09/17 21:00 (Dulcolax Supp) 10 mg DAILY PRN RECTAL 05/09/17 14:00 (Lactulose Liq) 30 ml DAILY PRN PO 05/09/17 13:15 (Eliquis) 5 mg BID PO 05/09/17 21:00 (Ecotrin Ec) 81 mg DAILY PO 05/10/17 09:00 (Lipitor) 40 mg HS PO 05/09/17 21:00 (Bumetanide) 1 mg DAILY PO 05/10/17 09:00 (Kite 10-325 Mg) 1 tab Q6H PRN PO 05/09/17 14:30 05/09/17 15:06 (Lopressor) 25 mg BID PO 05/09/17 21:00 (Protonix) 40 mg TID PRN PO 05/09/17 14:30 (KCl) 20 meq BID PO 05/09/17 21:00 (Vitamin B6) 100 mg DAILY PO 05/10/17 09:00 (Aldactone) 50 mg BID PO 05/09/17 21:00 (Zofran Odt) 8 mg TID PRN PO 05/09/17 15:15 Patient Own Medication PT OWN MED: ROPINIROLE(REQUIP) 5MG PO TID TID PO 05/09/17 18:00 Hold (Rocephin Inj/NS Inj) 100 ml @ 200 mls/hr Q24H IV 05/09/17 15:00 05/09/17 15:02 Social History The patient has been for many years. She lives alone. She does have supportive children. Denies any use ever of tobacco. No tobacco, no alcohol no illicit drugs. Physical Exam Vital Signs Vital Signs Date Time Temp Pulse Resp B/P Pulse Ox O2 Delivery O2 Flow Rate FiO2 05/09/17 18:00 68 05/09/17 16:37 97.7 77 16 128/62 100 05/09/17 13:43 81 18 118/64 77 18 111/53 05/09/17 11:28 97 Nasal Cannula 2 05/09/17 10:57 98.0 79 18 185/81 99 05/09/17 10:54 86 18 98 Room Air 05/09/17 10:35 98.2 89 16 143/68 98 Physical Exam GENERAL: This is a pleasant female in no acute distress. She is awake and she is alert and oriented. VITAL SIGNS: Temperature 97.7, BP 120/62, respirations 16, heart rate 77. HEENT: Head reveals a bruise at the left side of her cheek. Extraocular movements grossly intact. Pupils reactive to light. No icterus. Oropharynx moist mucosa. No lesions. Neck9 Supple without adenopathy. LUNGS: Clear breath sounds which are diminished. HEART: Regular rate and rhythm without murmurs, rubs or gallops. ABDOMEN: Bowel sounds present, soft, nontender. No masses palpable. RECTAL: Not performed. EXTREMITIES: Diffuse edema of both legs at the tibia. This is confluent and warm. There is weeping of the skin with slight serous ooze at the left lateral tibia. 3+ edema of the lower extremities. SKIN: No diffuse rash. The patient has two excoriated, red areas at the left upper back, one with a superficial dry ulcerated area. These are approximately 0.5 cm diameter. NEUROLOGIC: Patient awake and alert and oriented. No gross focal findings. Laboratory Laboratory Tests Test 05/09/17 05/09/17 05/09/17 11:32 11:44 16:10 White Blood Count 10.2 Red Blood Count 4.12 Hemoglobin 11.1 Hematocrit 35.1 Mean Corpuscular Volume 85.3 Mean Corpuscular Hemoglobin 26.9 Mean Corpuscular Hemoglobin 31.5 Concent Red Cell Distribution Width 16.5 Platelet Count 262 Mean Platelet Volume 7.2 Neutrophils (%) (Auto) 68.1 Lymphocytes (%) (Auto) 22.7 Monocytes (%) (Auto) 8.5 Eosinophils (%) (Auto) 0.2 Basophils (%) (Auto) 0.5 Neutrophils # (Auto) 6.9 Lymphocytes # (Auto) 2.3 Monocytes # (Auto) 0.9 Eosinophils # (Auto) 0.0 Basophils # (Auto) 0.1 CBC Comment DIFF FINAL Differential Comment Prothrombin Time 11.1 Prothromb Time International 1.0 Ratio Activated Partial 27.5 Thromboplast Time Sodium Level 141 Potassium Level 3.7 Chloride Level 109 Carbon Dioxide Level 24.6 Anion Gap 7 Blood Urea Nitrogen 25 Creatinine 0.72 Estimat Glomerular Filtration 78 Rate Random Glucose 99 Calcium Level 9.5 Magnesium Level 1.9 Total Bilirubin 0.5 Aspartate Amino Transf 27 (AST/SGOT) Alanine Aminotransferase 24 (ALT/SGPT) Alkaline Phosphatase 112 Total Creatine Kinase 150 108 Creatine Kinase MB 4.2 Troponin I LESS THAN 0.02 LESS THAN 0.02 B-Type Natriuretic Peptide 101 Total Protein 7.1 Albumin 3.4 Urine Color YELLOW Urine Turbidity HAZY Urine pH 5.5 Urine Specific [place] 1.033 Urine Protein TRACE Urine Glucose (UA) NEG Urine Ketones TRACE Urine Occult Blood NEG Urine Nitrite NEG Urine Bilirubin NEG Urine Urobilinogen LESS THAN 2.0 Urine Leukocyte Esterase TRACE Urine RBC 2 Urine WBC 3 Urine Squamous Epithelial 5 Cells Urine Calcium Oxalate Crystals FEW Urine Mucus FEW Microscopic Urinalysis Comment CULT NOT INDICATED Result Diagram: 05/09/17 1132 05/09/17 1132 Assessment and Plan Problem List: (1) Syncope and collapse (2) Cellulitis of leg, right (3) Leg edema Assessment and Plan 1. Syncope and collapse. Etiology to be determined. Echo 01/2017 showed normal LVEF 55%, normal bioprosthetic AV function. DDX include cardiac arrhythmia, pain medication over dose, orthostatic hypotension. On tele to monitor arrhythmia. pending neurology consult. 2. Cellulitis of the right leg and left leg. Chronic. On Abx. ID consulted. 3. Lower extremity edema. Diuretic. hx of LLE DVT. Will continue Eliquis. 4. Anemia, mild. 5. Acute kidney injury with probable mild dehydration. 6. Elevated BNP. 7. Recent history of valvular surgery. AVR 12/2016. 8. History of fibromyalgia and arthritis. Wing Michelle Rascon MD May 09, 2017 22:01 5. Continue with telemetry monitoring. 6. Activity to be out of bed but only with assistance. 7. Vital signs are q 4 and as needed. 8. Will consult infectious disease for their expert opinion as well as cardiology for their expert opinion. 9. The patient has been placed on Rocephin IV q. 24. 10. Will consult neurology and get an EEG study. 11. Within the next 24 hours will monitor the patient's plan of care and her hospital course needed based on the findings. Wing Michelle Rascon MD May 09, 2017 22:01
[2017-05-09] MEDS: POTASSIUM CHLORIDE 10 MEQ CONTROLLED RELEASE TAB PO SCH (22:29)
[2017-05-09] MEDS: APIXABAN 5 MG TABLET PO SCH (22:30)
[2017-05-09] MEDS: METOPROLOL TARTRATE 25 MG TAB PO SCH (22:30)
[2017-05-09] MEDS: ATORVASTATIN 40 MG TAB PO SCH (22:30)
[2017-05-09] MEDS: DOCUSATE SODIUM 50 MG/SENNA 8.6 MG TAB PO SCH (22:30)
[2017-05-09] MEDS: SPIRONOLACTONE 50 MG TAB PO SCH (22:47)
[2017-05-10] VITALS (11 sets, daily range): BP systolic 102–184; BP diastolic 54–73; PULSE 54–98; RESP 16–24; TEMP 97.4–98.6; O2SAT 95–98
[2017-05-10 00:31] LABS: CREATINE KINASE 77 U/L (26-192)
[2017-05-10] MEDS: SODIUM CHLOR 0.45% 1000 ML INJ 1,000 ML IV SCH (02:26)
[2017-05-10] MEDS: ACETAMINOPHEN/HYDROcodone 325 MG/10 MG TAB PO PRN ×3 (02:34→20:47)
--- NOTE | 2017-05-10 07:30 | HHI.PR ---
Subjective Subjective Remarks alert oriented LE improvement with swelling and erythema, rt. warm >lt. neg. troponins Review of Systems Constitutional Constitutional: Fatigue, Weakness Ears and Nose Ears and Nose: Ear Pain (chronic ear infections, tubes) Pulmonary Respiratory: Shortness of Breath (exertional) Cardiology CV Remarks syncope Musculoskeletal MS: Weakness, Stiffness Neurologic Neurologic Remarks syncope, none since adm Psychiatric Psychiatric: Normal Mood, Anxiety (mild) Vitals/Results Intake & Output 05/09/17 05/09/17 05/10/17 15:00 23:00 07:00 Intake Total 120 ml Balance 120 ml Intake Oral 120 ml Vital Signs Vital Signs Date Time Temp Pulse Resp B/P Pulse Ox O2 Delivery O2 Flow Rate FiO2 05/10/17 05:25 98.0 60 18 126/58 98 05/10/17 04:33 54 05/10/17 02:42 61 05/10/17 00:33 98.5 60 19 120/59 98 05/10/17 00:07 18 05/09/17 19:39 72 05/09/17 18:00 68 05/09/17 16:37 97.7 77 16 128/62 100 05/09/17 13:43 81 18 118/64 77 18 111/53 05/09/17 11:28 97 Nasal Cannula 2 05/09/17 10:57 98.0 79 18 185/81 99 05/09/17 10:54 86 18 98 Room Air 05/09/17 10:35 98.2 89 16 143/68 98 CBC/BMP: 05/09/17 1132 05/09/17 1132 Lab Results Laboratory Tests Test 05/09/17 05/09/17 05/09/17 05/10/17 11:32 11:44 16:10 00:04 White Blood Count 10.2 TH/MM3 Red Blood Count 4.12 MIL/MM3 Hemoglobin 11.1 GM/DL Hematocrit 35.1 % Mean Corpuscular Volume 85.3 FL Mean Corpuscular Hemoglobin 26.9 PG Mean Corpuscular Hemoglobin 31.5 % Concent Red Cell Distribution Width 16.5 % Platelet Count 262 TH/MM3 Mean Platelet Volume 7.2 FL Neutrophils (%) (Auto) 68.1 % Lymphocytes (%) (Auto) 22.7 % Monocytes (%) (Auto) 8.5 % Eosinophils (%) (Auto) 0.2 % Basophils (%) (Auto) 0.5 % Neutrophils # (Auto) 6.9 TH/MM3 Lymphocytes # (Auto) 2.3 TH/MM3 Monocytes # (Auto) 0.9 TH/MM3 Eosinophils # (Auto) 0.0 TH/MM3 Basophils # (Auto) 0.1 TH/MM3 CBC Comment DIFF FINAL Differential Comment Prothrombin Time 11.1 SEC Prothromb Time International 1.0 RATIO Ratio Activated Partial 27.5 SEC Thromboplast Time Sodium Level 141 MEQ/L Potassium Level 3.7 MEQ/L Chloride Level 109 MEQ/L Carbon Dioxide Level 24.6 MEQ/L Anion Gap 7 MEQ/L Blood Urea Nitrogen 25 MG/DL Creatinine 0.72 MG/DL Estimat Glomerular Filtration 78 ML/MIN Rate Random Glucose 99 MG/DL Calcium Level 9.5 MG/DL Magnesium Level 1.9 MG/DL Total Bilirubin 0.5 MG/DL Aspartate Amino Transf 27 U/L (AST/SGOT) Alanine Aminotransferase 24 U/L (ALT/SGPT) Alkaline Phosphatase 112 U/L Total Creatine Kinase 150 U/L 108 U/L 77 U/L Creatine Kinase MB 4.2 NG/ML Troponin I LESS THAN 0.02 LESS THAN 0.02 LESS THAN 0.02 NG/ML NG/ML NG/ML B-Type Natriuretic Peptide 101 PG/ML Total Protein 7.1 GM/DL Albumin 3.4 GM/DL Urine Color YELLOW Urine Turbidity HAZY Urine pH 5.5 Urine Specific [place] 1.033 Urine Protein TRACE mg/dL Urine Glucose (UA) NEG mg/dL Urine Ketones TRACE mg/dL Urine Occult Blood NEG Urine Nitrite NEG Urine Bilirubin NEG Urine Urobilinogen LESS THAN 2.0 MG/DL Urine Leukocyte Esterase TRACE Urine RBC 2 /hpf Urine WBC 3 /hpf Urine Squamous Epithelial 5 /hpf Cells Urine Calcium Oxalate Crystals FEW /hpf Urine Mucus FEW /lpf Microscopic Urinalysis Comment CULT NOT INDICATED Imaging Remarks Last Impressions Head CT 05/09/171124 Signed Impressions: Service Date/Time: Tuesday, May 09, 2017 12:21 - CONCLUSION: 1. 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 2. Nothing acute Ibrahima Pompa MD Chest X-Ray 05/09/175 Signed Impressions: Service Date/Time: Tuesday, May 09, 2017 11:34 - CONCLUSION: Normal examination status post median sternotomy. Jabier Pringle MD Current Medications Administered Medications Medications (Trade) Dose Ordered Sig/Cassie Route PRN Reason Start Time Stop Time Status Last Admin Dose Admin Sodium Chloride (1/2 NS 1000 ml Inj) 1,000 ml @ 75 mls/hr [id number] IV 05/09/17 13:06 05/09/17 13:32 Senna/Docusate Sodium (Jyoti-Colace) 1 tab BID PO 05/09/17 21:00 05/09/17 22:30 Apixaban (Eliquis) 5 mg BID PO 05/09/17 21:00 05/09/17 22:30 Atorvastatin Calcium (Lipitor) 40 mg HS PO 05/09/17 21:00 05/09/17 22:30 Acetaminophen/ Hydrocodone Bitart ([place] 10-325 Mg) 1 tab Q6H PRN PO PAIN 1-10 05/09/17 14:30 05/10/17 02:34 Metoprolol Tartrate (Lopressor) 25 mg BID PO 05/09/17 21:00 05/09/17 22:30 Potassium Chloride (KCl) 20 meq BID PO 05/09/17 21:00 05/09/17 22:29 Spironolactone 50 mg 50 mg BID PO 05/09/17 21:00 05/09/17 22:47 Ceftriaxone Sodium/Sodium Chloride (Rocephin Inj/NS Inj) 100 ml @ 200 mls/hr Q24H IV 05/09/17 15:00 05/09/17 15:02 Physical Exam General General Appearance: Well Developed, No Acute Distress, Comfortable, Obese Eyes Eye Exam: Pupils Equal, Pupils Reactive Ears & Nose Ears & Nose Exam: Nasal Mucosa [place] Throat Throat Exam: Oral Mucosa [place] & Moist Neck Neck Exam: Neck Supple Pulmonary Resp Exam: Clear Bilaterally Cardiology CV Exam: Regular Gastrointestinal/Abdomen GI Exam: Soft, Non-Tender, Bowel Sounds Present Genitourinary Exam: Clear Urine Musculoskeletal MS Exam: Joints Intact, Good Strength (upper) Integumentary Skin Exam: Warm, Dry Skin Remarks LE cellulitis Extremeties Extremities Exam: Moderate Edema Extremeties Remarks erythema Neurologic Neuro Exam: Alert, Awake, Oriented, Speech Clear, Moving All Extremities Neuro Remarks lt. groin pain occ Assessment/Plan Assessment/Plan 1. Syncope and collapse., telemetry, Neurology consult pending 2. Cellulitis of the right leg and left leg., antibiotics, IVF 3. Lower extremity edema., elevate at all times, OOB chair, PT 4. Anemia, mild. monitor labs, no acute bleeding noted, 5. Acute kidney injury with probable mild dehydration. continue gentle hydration 6. Elevated BNP., compensated, monitor and medical management , cardiology following 7. Recent history of valvular surgery. monitor any acute symptoms 8. History of fibromyalgia and arthritis. medical management 9. Venous stasis LE, antibiotics , IVF, elevate vitals reviewed, normal trends labs reviewed, negative troponins, am labs pending D/W nurse D/W patient D/W Dr. Valdes, seen on his behalf Eladia Armenta May 10, 2017 07:30
[2017-05-10 08:26] LABS: AUTOMATED NEUTROPHIL # 3.3 TH/MM3 (1.8-7.7); BASOPHIL % 0.6 % (0.0-2.0); EOSINOPHIL # 0.1 TH/MM3 (0-0.4); HEMATOCRIT 30.7 % (35.0-46.0); HEMO FLAGS DIFF FINAL; LYMPH % 36.2 % (9.0-44.0); LYMPHOCYTE # 2.3 TH/MM3 (1.0-4.8); MEAN CELL VOLUME 83.6 FL (80.0-100.0); MEAN CORPUSCULAR HEMOGLOBIN 27.2 PG (27.0-34.0); MEAN CORPUSCULAR HGB CONC 32.5 % (32.0-36.0); MONO % 9.5 % (0.0-8.0); NEUT % 52.7 % (16.0-70.0); PLATELET COUNT 237 TH/MM3 (150-450); RED BLOOD COUNT 3.67 MIL/MM3 (4.00-5.30); RED CELL DISTRIBUTION WIDTH 16.7 % (11.6-17.2); WHITE BLOOD COUNT 6.3 TH/MM3 (4.0-11.0)
[2017-05-10 08:50] LABS: BICARBONATE 23.9 MEQ/L (21.0-32.0); POTASSIUM 3.7 MEQ/L (3.5-5.1)
[2017-05-10] MEDS: BUMETANIDE 1 MG TAB PO SCH (08:51)
[2017-05-10] MEDS: SPIRONOLACTONE 50 MG TAB PO SCH ×2 (08:51→21:54)
[2017-05-10] MEDS: APIXABAN 5 MG TABLET PO SCH ×2 (08:51→20:48)
[2017-05-10] MEDS: METOPROLOL TARTRATE 25 MG TAB PO SCH ×2 (08:51→20:48)
[2017-05-10] MEDS: ASPIRIN EC 81 MG TABEC PO SCH (08:51)
[2017-05-10] MEDS: DOCUSATE SODIUM 50 MG/SENNA 8.6 MG TAB PO SCH ×2 (08:51→20:48)
[2017-05-10] MEDS: POTASSIUM CHLORIDE 10 MEQ CONTROLLED RELEASE TAB PO SCH ×2 (08:52→20:47)
[2017-05-10] MEDS: PYRIDOXINE HCL 50 MG TAB PO SCH (08:53)
[2017-05-10] MEDS: SODIUM CHLORIDE 0.9% FLUSH 10 ML FLUSH IV FLUSH SCH ×2 (08:56→20:48)
--- NOTE | 2017-05-10 13:24 | EKG ---
Date Performed: 05/09/2017 Time Performed: 11:00:39 PTAGE: 82 years EKG: Sinus rhythm MARKED LEFT AXIS DEVIATION RIGHT BUNDLE BRANCH BLOCK ABNORMAL ECG Compared to prior tracing no signi ficant change PREVIOUS TRACING : 04/04/14 06:51:54 DOCTOR: Dragan Cage Interpretating Date/Time 05/10/2017 13:21:48
[2017-05-10] MEDS: cefTRIAXone INJ 1,000 MG in SODIUM CHLORIDE 0.9% INJ 100 ML IV SCH (14:31)
--- NOTE | 2017-05-10 17:48 | MG ---
cc: TAL FUENTES M.D. Lab No: Date: 05/10/2017 Age: Sex: F Race: ELECTROENCEPHALOGRAM NUMBER [id number] INTRODUCTION An 82-year-old woman. Hyperventilation not performed. White matter changes seen. Three passing out spells. MEDICATIONS 1. Eliquis. 2. Lipitor. DESCRIPTION An 8 Hz 60 microvolts symmetrical posterior rhythm is seen. Some movement artifact is noted. Overall the recording is synchronous and symmetric. Photic stimulation was performed without significant posterior driving. IMPRESSION Generally unremarkable EEG. No evidence for a focal or diffuse abnormality. MD SHEYLA Dunaway/KK /4:59 PM /5:36 PM
[2017-05-10] MEDS: ATORVASTATIN 40 MG TAB PO SCH (20:48)
--- NOTE | 2017-05-10 21:18 | MB ---
cc: CEE YOUNG M.D. DATE OF CONSULTATION 05/10/2017 REASON FOR CONSULTATION Recurrent syncope. HISTORY OF PRESENT ILLNESS Ms. Carbajal is a very pleasant 82-year-old woman who has had several episodes of loss of conscious. She states these can occur when she is sitting down. She suddenly passes out for a few seconds and regains consciousness. There is no tonic-clonic activity. She has no bladder incontinence. These are not associated with position change. She denies chest pain or palpitation. She does have a history of migraine headaches but denies any migraine headaches associated with these episodes. PAST MEDICAL HISTORY Remarkable for: 1. Coronary artery disease. 2. Fibromyalgia. 3. Arthritis. 4. History of TIAs. 5. thyroid disease. 6. Hypertension. 7. Aortic valve replacement. 8. Hysterectomy. 9. Right knee and left shoulder surgery. ALLERGIES CELEBREX. BIAXIN, PERCOCET AND VIOXX. MEDICATIONS She takes: 1. Eliquis. 2. Requip. 3. Lipitor. 4. Protonix. 5. Potassium. 6. Vitamin B6. 7. Magnesium. NEUROLOGIC EXAMINATION VITAL SIGNS: Blood pressure is 117/57, pulse 55, respirations 24. Higher cortical functions are normal. Cranial nerves are intact. Motor exam 5/5 strength of all groups in both upper and lower extremities. There is no drift. Cerebellar testing normal. IMAGING CT of the brain shows chronic ischemic demyelinization. No acute change present. LABORATORY DATA White count is 6300. Hemoglobin 10, hematocrit 30%, platelet count 237,000. PT 11.1, INR 1.0, APTT 27.5. Sodium is 141, potassium 3.7, chloride 109, CO2 24.6. The BUN is 25, creatinine 0.72, AST 27, ALT 24. IMPRESSION Syncope. I doubt seizure activity or TIA. I doubt this represents basilar migraine. She had an echocardiogram in January of this year, left ventricular ejection fraction of 55%. She had a normal bioprosthetic aortic valve. RECOMMENDATIONS Rule out cardiac arrhythmia, orthostatic hypotension. Will obtain an EEG although her history somewhat atypical for migraine. Also MRI of the brain. This would be to rule out the remote chance of stroke, although her exam at the present time does not indicate stroke. MD ASIM Brown /5:55 PM /9:10 PM
[2017-05-11] VITALS (9 sets, daily range): BP systolic 102–129; BP diastolic 50–68; PULSE 65–90; RESP 17–20; TEMP 96.9–98; O2SAT 95–98
[2017-05-11] MEDS: ACETAMINOPHEN/HYDROcodone 325 MG/10 MG TAB PO PRN ×3 (04:54→19:27)
[2017-05-11] MEDS: METOPROLOL TARTRATE 25 MG TAB PO SCH ×2 (08:01→21:20)
[2017-05-11] MEDS: APIXABAN 5 MG TABLET PO SCH ×2 (08:01→21:20)
[2017-05-11] MEDS: ASPIRIN EC 81 MG TABEC PO SCH (08:01)
[2017-05-11] MEDS: POTASSIUM CHLORIDE 10 MEQ CONTROLLED RELEASE TAB PO SCH ×2 (08:01→21:19)
[2017-05-11] MEDS: BUMETANIDE 1 MG TAB PO SCH (08:01)
[2017-05-11] MEDS: DOCUSATE SODIUM 50 MG/SENNA 8.6 MG TAB PO SCH ×2 (08:01→21:00)
[2017-05-11] MEDS: PYRIDOXINE HCL 50 MG TAB PO SCH (08:02)
[2017-05-11] MEDS: SODIUM CHLORIDE 0.9% FLUSH 10 ML FLUSH IV FLUSH SCH ×2 (08:02→21:00)
[2017-05-11] MEDS: SPIRONOLACTONE 50 MG TAB PO SCH ×2 (08:03→21:51)
--- NOTE | 2017-05-11 08:34 | HHI.PR ---
Subjective Subjective Remarks alert Anxiety acute on chronic Lower extremities secured and wrapped, still complains of pain in her calf area and up the back of her leg, erythema improved History of DVT neg. troponins Patient questioning whether she is getting her Requip are not, med has been ordered on admission and she has been receiving (Eladia Armenta) Review of Systems Constitutional Constitutional: Fatigue, Weakness Constitutional Remarks 10 point ROS done positives noted (Eladia Armenta) Ears and Nose Ears and Nose: Ear Pain (chronic ear infections, tubes) (Eladia Armenta) Pulmonary Respiratory: Shortness of Breath (exertional) (Eladia Armenta) Cardiology CV Remarks syncope (Eladia Armenta) Musculoskeletal MS: Weakness, Stiffness, Swelling, Discomfort/Pain (especially in) (Eladia Armenta) Neurologic Neurologic Remarks syncope, none since adm Restless, anxious over current condition (Eladia Armenta) Psychiatric Psychiatric: Normal Mood, Anxiety (mild) (Eladia Armenta) Vitals/Results Intake & Output 05/10/17 05/10/17 05/11/17 15:00 23:00 07:00 Intake Total 1310 ml Balance 1310 ml Intake Oral 560 ml IV Total 750 ml # Voids 3 Vital Signs Vital Signs Date Time Temp Pulse Resp B/P Pulse Ox O2 Delivery O2 Flow Rate FiO2 05/11/17 07:45 97.5 65 17 127/62 98 05/11/17 05:54 16 05/11/17 04:46 97.9 67 19 129/62 97 05/11/17 00:34 98.0 69 18 102/51 96 05/10/17 23:38 67 05/10/17 21:47 98.0 67 18 125/60 95 05/10/17 19:05 97.4 98 18 102/54 98 05/10/17 16:34 97.6 65 24 117/57 98 05/10/17 12:03 98.6 66 18 154/68 98 05/10/17 10:57 98.6 63 20 122/60 95 159/72 184/73 05/10/17 08:59 97.4 66 16 118/63 96 (Eladia Armenta) CBC/BMP: 05/10/17 0805 05/10/17 0805 Current Medications Administered Medications Medications (Trade) Dose Ordered Sig/Cassie Route PRN Reason Start Time Stop Time Status Last Admin Dose Admin Sodium Chloride (NS Flush) 2 ml BID IV FLUSH 05/09/17 21:00 05/11/17 08:02 Senna/Docusate Sodium (Jyoti-Colace) 1 tab BID PO 05/09/17 21:00 05/11/17 08:01 Apixaban (Eliquis) 5 mg BID PO 05/09/17 21:00 05/11/17 08:01 Aspirin (Ecotrin Ec) 81 mg DAILY PO 05/10/17 09:00 05/11/17 08:01 Atorvastatin Calcium (Lipitor) 40 mg HS PO 05/09/17 21:00 05/10/17 20:48 Bumetanide (Bumetanide) 1 mg DAILY PO 05/10/17 09:00 05/11/17 08:01 Acetaminophen/ Hydrocodone Bitart ([place] 10-325 Mg) 1 tab Q6H PRN PO PAIN 1-10 05/09/17 14:30 05/11/17 04:54 Metoprolol Tartrate (Lopressor) 25 mg BID PO 05/09/17 21:00 05/11/17 08:01 Potassium Chloride (KCl) 20 meq BID PO 05/09/17 21:00 05/11/17 08:01 Pyridoxine HCl (Vitamin B6) 100 mg DAILY PO 05/10/17 09:00 05/11/17 08:02 Spironolactone 50 mg 50 mg BID PO 05/09/17 21:00 05/11/17 08:03 Ceftriaxone Sodium/Sodium Chloride (Rocephin Inj/NS Inj) 100 ml @ 200 mls/hr Q24H IV 05/09/17 15:00 05/10/17 14:31 (Eladia Armenta) Physical Exam General General Appearance: Well Developed, No Acute Distress, Comfortable, Obese ( Eladia Armenta) Eyes Eye Exam: Pupils Equal, Pupils Reactive (Eladia Armenta) Ears & Nose Ears & Nose Exam: Nasal Mucosa [place] ([place],Eladia M. [employer] WASHER) Throat Throat Exam: Oral Mucosa [place] & Moist ([place],Eladia M. [employer] W[employer]ER) Neck Neck Exam: Neck Supple ([place],Eladia M. [employer] W[employer]ER) Pulmonary Resp Exam: Clear Bilaterally ([place],Eladia M. [employer]ER) Cardiology CV Exam: Regular ([place],Eladia M. [employer] W[employer]ER) Gastrointestinal/Abdomen GI Exam: Soft, Non-Tender, Bowel Sounds Present ([place],Eladia M. [employer] W[employer]ER) Genitourinary Exam: Clear Urine ([place],Eladia M. [employer] W[employer]ER) Musculoskeletal MS Exam: Joints Intact, Good Strength (upper) ([place],Eladia M. [employer] W[employer]ER) Integumentary Skin Exam: Warm, Dry Skin Remarks LE cellulitis ([place],Eladia M. [employer] W[employer]ER) Extremeties Extremities Exam: Moderate Edema Extremeties Remarks erythema ([place],Eladia M. [employer] W[employer]ER) Neurologic Neuro Exam: Alert, Awake, Oriented, Speech Clear, Moving All Extremities Neuro Remarks lt. groin pain occ ([place],Eladia M. [employer]ER) Assessment/Plan Assessment/Plan 1. Syncope and collapse., telemetry, Neurology consult appreciate input, plan for MRI of the brain today, EEG unremarkable for any seizure disorder 2. Cellulitis of the right leg and left leg., antibiotics, IVF, history of DVT, she complains of calf pain we'll do bilateral ultrasound of her legs, overall improvement of erythema and edema 3. Lower extremity edema., elevate at all times, OOB chair, PT, OT and evaluate her mobility and strength 4. Anemia, mild. monitor labs, no acute bleeding noted, 5. Acute kidney injury with probable mild dehydration. continue gentle hydration 6. Elevated BNP., compensated, monitor and medical management , cardiology following 7. Recent history of valvular surgery. monitor any acute symptoms, telemetry shows sinus rhythm with right bundle branch block, no acute dysrhythmias noted per staff or documentation 8. History of fibromyalgia and arthritis. medical management 9. Venous stasis LE, antibiotics , IVF, elevate 10. Sciatica, patient complains of low back pain with pain radiating especially down her left groin and left leg, will evaluate plan of care with Dr. Valdes, and her medical management needed. Will rule out DVT since patient has a significant history. vitals reviewed, normal trends labs reviewed, negative troponins, anemia with some mild trending down, we'll Hemoccult stools to check for any possible GI bleed D/W nurse D/W patient D/W Dr. Valdes, seen on his behalf, 35 minutes time with patient (Eladia Armenta) Assessment/Plan seen, examined by myself, Dr Valdes, today 05/11/17 Discussed with patient No syncope since admission No etiology at found The patient might have to discontinue her Requip As this gives syncope in 12% of patients The dose has already been reduced from 5 mg 3 times a day to 2 mg 3 times a day Discussed with mid level provider The exam, history, and the medical decision-making described in the above note were completed with the assistance of the mid-level provider. I reviewed the findings presented. I attest that I had a [id number] encounter with the patient on the same day, and personally performed and documented my assessment and findings in the medical record. (Guicho Valdes MD) Eladia Armenta May 11, 2017 08:34 Guicho Valdes MD May 11, 2017 18:26
--- NOTE | 2017-05-11 09:56 | RADRPT ---
EXAM DATE/TIME: 05/11/2017 09:02 [facility] COMPARISON: No previous studies available for comparison. INDICATIONS : Bilateral leg swelling and pain. MEDICAL HISTORY : Thyroid disease. TIA. Anticoagulant therapy. Hypertension. Sleep apnea. Arthritis. Fibromyalgia. SURGICAL HISTORY : Hysterectomy. Eye surgery. Right rotator cuff repair. Cervical diskectomy and fusion. Right total kne e replacement. Left total shoulder replacement. Heart valve replacement. ENCOUNTER: Initial ACUITY: 4 - 6 days PAIN SCORE: 3/10 LOCATION: Bilateral legs. TECHNIQUE: Venous ultrasound of the left and right leg was performed from the inguinal ligament to the proximal calf. Real-time, color Doppler and spectral tracing, compression and augmentation techniques were us ed. FINDINGS: RIGHT LEG: There is incompletely occlusive thrombus present in the right calf posterior tibial vein. The deep ve nous structures of the right leg are otherwise patent and normal in appearance. Specifically, there i s no evidence of popliteal or femoral DVT and the visualized iliac vein is patent LEFT LEG: There is normal compressibility of the deep venous system from the inguinal region to the proximal ca lf. No echogenic clot is seen in the lumen of the common femoral, femoral, popliteal, and posterior tibial veins. There is a normal response of the venous system to proximal and distal augmentation an d respiration. CONCLUSION: There is evidence of thrombus in the right calf posterior tibial vein. Otherwise normal. Maurice Ellis MD on May 11, 2017 at 9:47 Board Certified Radiologist. This report was verified electronically.
--- NOTE | 2017-05-11 15:46 | HHI.IDPN ---
Note Infectious Disease Note Patient feels okay. Awake and alert. No complaints. Afebrile. Noted DVT at RLE on ultrasound. PAST MEDICAL HISTORY 1. Cardiovascular disease. 2. History of aortic valve replacement. Bioprosthetic valve in December 2016. . 3. Fibromyalgia. 4. Arthritis. 5. Hypertension. 6. Mini strokes. 7. Hysterectomy. 8. Right knee replacement. 9. Left shoulder replacement. ALLERGIES BIAXIN, CELEBREX, PERCOCET, VIOXX. ANTIBIOTICS Ceftriaxone. SOCIAL HISTORY No tobacco. Rare alcohol. No illicit drugs. FAMILY HISTORY Noncontributory. OBJECTIVE: Vital Signs Date Time Temp Pulse Resp B/P Pulse Ox O2 Delivery O2 Flow Rate FiO2 05/11/17 11:49 97.3 66 18 126/68 96 05/11/17 07:45 97.5 65 17 127/62 98 05/11/17 05:54 16 05/11/17 04:46 97.9 67 19 129/62 97 05/11/17 00:34 98.0 69 18 102/51 96 05/10/17 23:38 67 05/10/17 21:47 98.0 67 18 125/60 95 05/10/17 19:05 97.4 98 18 102/54 98 05/10/17 16:34 97.6 65 24 117/57 98 Laboratory Tests Test 05/10/17 08:05 White Blood Count 6.3 TH/MM3 Red Blood Count 3.67 MIL/MM3 Hemoglobin 10.0 GM/DL Hematocrit 30.7 % Mean Corpuscular Volume 83.6 FL Mean Corpuscular Hemoglobin 27.2 PG Mean Corpuscular Hemoglobin 32.5 % Concent Red Cell Distribution Width 16.7 % Platelet Count 237 TH/MM3 Mean Platelet Volume 6.8 FL Neutrophils (%) (Auto) 52.7 % Lymphocytes (%) (Auto) 36.2 % Monocytes (%) (Auto) 9.5 % Eosinophils (%) (Auto) 1.0 % Basophils (%) (Auto) 0.6 % Neutrophils # (Auto) 3.3 TH/MM3 Lymphocytes # (Auto) 2.3 TH/MM3 Monocytes # (Auto) 0.6 TH/MM3 Eosinophils # (Auto) 0.1 TH/MM3 Basophils # (Auto) 0.0 TH/MM3 CBC Comment DIFF FINAL Differential Comment Laboratory Tests Test 705/10/17 05/10/17 05/11/17 16:10 00:04 08:05 09:49 Total Creatine Kinase 108 U/L 77 U/L Troponin I LESS THAN 0.02 LESS THAN 0.02 NG/ML NG/ML Sodium Level 142 MEQ/L Potassium Level 3.7 MEQ/L Chloride Level 110 MEQ/L Carbon Dioxide Level 23.9 MEQ/L Anion Gap 8 MEQ/L Blood Urea Nitrogen 15 MG/DL Creatinine 0.55 MG/DL Estimat Glomerular Filtration 106 ML/MIN Rate Random Glucose 92 MG/DL Calcium Level 9.0 MG/DL Random Cortisol 11.5 MCG/DL Microbiology Date/Time Procedure Status Source Growth 05/11/17 12:15 Stool Occult Blood ([facility]) - Final Complete Stool Stool HEMOCCULT NEGATIVE PHYSICAL EXAMINATION GENERAL: No acute distress. She is awake, alert and oriented. HEENT: Head reveals a bruise at the left side of her cheek. Extraocular movements grossly intact. Pupils reactive to light. No icterus. Oropharynx moist mucosa. No lesions. Neck9 Supple without adenopathy. LUNGS: Clear breath sounds. HEART: Regular rate and rhythm without murmurs, rubs or gallops. ABDOMEN: Bowel sounds present, soft, nontender. EXTREMITIES: marked decreased erythema of both legs. Edema has decreased. 2+ edema of the lower extremities. SKIN: No diffuse rash. The patient has two excoriated, red areas at the left upper back, one with a superficial dry ulcerated area. These are approximately 0.5 cm diameter. NEUROLOGIC: Patient awake and alert and oriented. No gross focal findings. IMPRESSION 1. Cellulitis of the lower extremities. Improved. 2. Edema of the lower extremities. The patient probably has venous stasis. RECOMMENDATIONS Continue ceftriaxone another 24 hours then switch to PO keflex x 7 days if she is stable. Wrap lower extremities with syl wraps for edema. Shayne Rodrigues MD May 11, 2017 15:46
[2017-05-11] MEDS: cefTRIAXone INJ 1,000 MG in SODIUM CHLORIDE 0.9% INJ 100 ML IV SCH (15:50)
--- NOTE | 2017-05-11 17:45 | RADRPT ---
EXAM DATE/TIME: 05/11/2017 13:40 [facility] COMPARISON: CT BRAIN W/O CONTRAST, May 09, 2017, 12:21. INDICATIONS : Syncope. MEDICAL HISTORY : Stroke DVT SURGICAL HISTORY : Fusion, cervical. Hysterectomy. heart valve, rt knee, lt shoulder ENCOUNTER: Subsequent ACUITY: 4-6 days PAIN SCORE: 0/10 LOCATION: cranial TECHNIQUE: Multiplanar, multisequence MRI of the brain was performed without contrast. FINDINGS: There is no evidence for intracranial hemorrhage, mass effect, mass lesions, edema, or extra-axial fl uid collections. There are no signs of acute infarction for technique. The diffusion portion is unre markable. Slight degree of brain atrophy is seen. Slight to moderate periventricular white matter matheus nges are seen nonspecific mostly consistent with chronic small vessel ischemic changes. CONCLUSION: Chronic atrophic and small vessel ischemic changes without any evidence for acute hem orrhage or mass effect. Ben Charles MD on May 11, 2017 at 17:42 Board Certified Radiologist. This report was verified electronically.
[2017-05-11] MEDS: ATORVASTATIN 40 MG TAB PO SCH (21:20)
[2017-05-12] VITALS (7 sets, daily range): BP systolic 110–149; BP diastolic 58–81; PULSE 62–84; RESP 17–22; TEMP 96.8–98; O2SAT 93–99
[2017-05-12] MEDS: ACETAMINOPHEN/HYDROcodone 325 MG/10 MG TAB PO PRN ×3 (01:47→21:18)
[2017-05-12] MEDS ORDERED: diphenhydrAMINE HCL 25 MG CAP PO ONE (02:15)
[2017-05-12] MEDS: DOCUSATE SODIUM 50 MG/SENNA 8.6 MG TAB PO SCH ×2 (09:00→21:00)
[2017-05-12] MEDS: POTASSIUM CHLORIDE 10 MEQ CONTROLLED RELEASE TAB PO SCH ×2 (09:36→21:09)
[2017-05-12] MEDS: METOPROLOL TARTRATE 25 MG TAB PO SCH ×2 (09:36→21:09)
[2017-05-12] MEDS: APIXABAN 5 MG TABLET PO SCH ×2 (09:37→21:09)
[2017-05-12] MEDS: BUMETANIDE 1 MG TAB PO SCH (09:37)
[2017-05-12] MEDS: SPIRONOLACTONE 50 MG TAB PO SCH ×2 (09:37→21:09)
[2017-05-12] MEDS: ASPIRIN EC 81 MG TABEC PO SCH (09:37)
[2017-05-12] MEDS: PYRIDOXINE HCL 50 MG TAB PO SCH (09:38)
[2017-05-12] MEDS: SODIUM CHLORIDE 0.9% FLUSH 10 ML FLUSH IV FLUSH SCH ×2 (09:42→21:15)
[2017-05-12] MEDS: cefTRIAXone INJ 1,000 MG in SODIUM CHLORIDE 0.9% INJ 100 ML IV SCH (17:42)
--- NOTE | 2017-05-12 17:54 | HHI.PR ---
Subjective Interval History Alert, oriented, feeling better, less edema in the legs, no syncope since admission Review of Systems Constitutional Constitutional: Fatigue, Weakness Constitutional Remarks 10 systems reviewed and otherwise negative Ears and Nose Ears and Nose: Ear Pain (chronic ear infections, tubes) Pulmonary Respiratory: Shortness of Breath (exertional) Musculoskeletal MS: Weakness, Stiffness, Swelling, Discomfort/Pain (especially in) Psychiatric Psychiatric: Normal Mood, Anxiety (mild) Vitals/Results Intake & Output 05/11/17 05/11/17 05/12/17 15:00 23:00 07:00 Intake Total 360 ml 1080 ml Balance 360 ml 1080 ml Intake Oral 360 ml 1080 ml # Voids 3 12 3 # Bowel Movements 3 Vital Signs Vital Signs Date Time Temp Pulse Resp B/P Pulse Ox O2 Delivery O2 Flow Rate FiO2 05/12/17 16:00 97.0 84 22 116/60 99 05/12/17 12:00 97.2 71 20 120/66 99 115/69 126/81 05/12/17 08:00 97.0 63 18 110/58 98 05/12/17 05:20 97.2 70 17 149/69 96 05/12/17 04:05 65 05/12/17 00:00 96.8 68 17 142/64 97 05/12/17 00:00 62 05/11/17 20:45 84 05/11/17 20:00 96.9 82 17 115/59 95 05/11/17 19:05 84 05/11/17 18:45 98.0 90 20 103/50 97 CBC/BMP: 05/10/17 0805 05/10/17 0805 Physical Exam General General Appearance: Well Developed, No Acute Distress, Comfortable, Obese Eyes Eye Exam: Pupils Equal, Pupils Reactive Ears & Nose Ears & Nose Exam: Nasal Mucosa [place] Throat Throat Exam: Oral Mucosa [place] & Moist Neck Neck Exam: Neck Supple Pulmonary Resp Exam: Clear Bilaterally Cardiology CV Exam: Regular Gastrointestinal/Abdomen GI Exam: Soft, Non-Tender, Bowel Sounds Present Genitourinary Exam: Clear Urine Musculoskeletal MS Exam: Joints Intact, Good Strength (upper) Integumentary Skin Exam: Warm, Dry Extremeties Extremities Exam: Moderate Edema Neurologic Neuro Exam: Alert, Awake, Oriented, Speech Clear, Moving All Extremities Psychiatric Psych Exam: Appropriate Responses Assessment/Plan Assessment/Plan Assessment Recurrent syncope, etiology unclear Cellulitis both lower extremities, improving Edema both lower extremities, improving Anemia Acute kidney injury Recent heart surgery History of fibromyalgia, arthritis and obesity Management So far the syncope workup is negative We will stop Requip as it does in 12% of cases induce syncope Continue antibiotics Continuing Bruce wraps for both lower extremities Continue other medications Physical therapy Possible need for rehabilitation Discussed with patient Discussed with nurse 35 minutes Guicho Valdes MD May 12, 2017 17:54
[2017-05-12] MEDS ORDERED: diphenhydrAMINE HCL 25 MG CAP PO PRN (20:15)
[2017-05-12] MEDS ORDERED: PRAMIPEXOLE DIHYDROCHLORIDE 0.25 MG TAB PO SCH (21:00)
[2017-05-12] MEDS: ATORVASTATIN 40 MG TAB PO SCH (21:09)
[2017-05-13] VITALS: BP 98/60; PULSE 69; PULSE 70; RESP 17; TEMP 98.1; O2SAT 96
[2017-05-13 04:00] VITALS: BP 107/54; PULSE 71; RESP 18; TEMP 97.1; O2SAT 93
[2017-05-13] MEDS: ACETAMINOPHEN/HYDROcodone 325 MG/10 MG TAB PO PRN ×2 (05:33→13:30)
[2017-05-13 07:08] LABS: AUTOMATED NEUTROPHIL # 5.9 TH/MM3 (1.8-7.7); BASOPHIL % 0.4 % (0.0-2.0); EOSINOPHIL # 0.1 TH/MM3 (0-0.4); EOSINOPHIL % 0.7 % (0.0-4.0); HEMATOCRIT 33.4 % (35.0-46.0); HEMO FLAGS DIFF FINAL; LYMPH % 26.3 % (9.0-44.0); LYMPHOCYTE # 2.6 TH/MM3 (1.0-4.8); MEAN CELL VOLUME 83.5 FL (80.0-100.0); MEAN CORPUSCULAR HEMOGLOBIN 27.5 PG (27.0-34.0); MONO % 12.3 % (0.0-8.0); NEUT % 60.3 % (16.0-70.0); PLATELET COUNT 236 TH/MM3 (150-450); RED CELL DISTRIBUTION WIDTH 17.1 % (11.6-17.2); WHITE BLOOD COUNT 9.7 TH/MM3 (4.0-11.0)
[2017-05-13 07:38] LABS: BICARBONATE 27.2 MEQ/L (21.0-32.0); MAGNESIUM 1.9 MG/DL (1.5-2.5); POTASSIUM 4.3 MEQ/L (3.5-5.1)
[2017-05-13 08:00] VITALS: BP 111/56; PULSE 69; RESP 20; TEMP 96.3; O2SAT 95
[2017-05-13] MEDS: BUMETANIDE 1 MG TAB PO SCH (09:00)
[2017-05-13] MEDS: ASPIRIN EC 81 MG TABEC PO SCH (09:33)
[2017-05-13] MEDS: METOPROLOL TARTRATE 25 MG TAB PO SCH (09:33)
[2017-05-13] MEDS: DOCUSATE SODIUM 50 MG/SENNA 8.6 MG TAB PO SCH (09:33)
[2017-05-13] MEDS: APIXABAN 5 MG TABLET PO SCH (09:33)
[2017-05-13] MEDS: PYRIDOXINE HCL 50 MG TAB PO SCH (09:33)
[2017-05-13] MEDS: POTASSIUM CHLORIDE 10 MEQ CONTROLLED RELEASE TAB PO SCH (09:33)
[2017-05-13] MEDS: SPIRONOLACTONE 50 MG TAB PO SCH (09:34)
[2017-05-13 09:35] VITALS: BP 110/53; PULSE 83
[2017-05-13] MEDS: SODIUM CHLORIDE 0.9% FLUSH 10 ML FLUSH IV FLUSH SCH (09:35)
[2017-05-13] MEDS ORDERED: WALKER WHEELS/F1 MIS (11:44)
[2017-05-13 12:00] VITALS: BP 124/57; PULSE 71; RESP 20; TEMP 96.7; O2SAT 99
--- NOTE | 2017-05-13 13:34 | HHI.FF ---
Face to Face Verification Diagnosis: (1) Lymphedema of both lower extremities (2) Cellulitis of leg, right (3) Syncope and collapse Physical Therapy Order: Evaluate and Treat Home Health Nursing Order: Medical education CHF education I have seen patient Amelia Carbajal on 05/13/17. My clinical findings support the need for the requested home health care services because: Ltd mobility - disease progression I certify that my clinical findings support that this patient is homebound because: Unsteady gait/balance Guicho Valdes MD May 13, 2017 13:34
--- NOTE | 2017-05-13 18:01 | HHI.PR ---
Subjective Interval History Alert, oriented, she stated that Mirapex has not benefited her restless leg syndrome Review of Systems Constitutional Constitutional: Fatigue, Weakness Constitutional Remarks 10 systems reviewed and otherwise negative Ears and Nose Ears and Nose: Ear Pain (chronic ear infections, tubes) Pulmonary Respiratory: Shortness of Breath (exertional) Musculoskeletal MS: Weakness, Stiffness, Swelling, Discomfort/Pain (especially in) Psychiatric Psychiatric: Normal Mood, Anxiety (mild) Vitals/Results Intake & Output 05/12/17 05/12/17 05/13/17 15:00 23:00 07:00 Intake Total 1080 ml Balance 1080 ml Intake Oral 1080 ml # Voids 10 1 Vital Signs Vital Signs Date Time Temp Pulse Resp B/P Pulse Ox O2 Delivery O2 Flow Rate FiO2 05/13/17 12:00 96.7 71 20 124/57 99 05/13/17 09:35 83 110/53 05/13/17 08:00 96.3 69 20 111/56 95 05/13/17 04:00 97.1 71 18 107/54 93 05/13/17 00:00 70 05/13/17 00:00 98.1 69 17 98/60 96 05/12/17 20:00 78 05/12/17 20:00 98.0 80 17 118/62 93 CBC/BMP: 05/13/17 0634 05/13/17 0636 Lab Results Laboratory Tests Test 05/13/17 05/13/17 06:34 06:36 White Blood Count 9.7 TH/MM3 Red Blood Count 4.00 MIL/MM3 Hemoglobin 11.0 GM/DL Hematocrit 33.4 % Mean Corpuscular Volume 83.5 FL Mean Corpuscular Hemoglobin 27.5 PG Mean Corpuscular Hemoglobin 33.0 % Concent Red Cell Distribution Width 17.1 % Platelet Count 236 TH/MM3 Mean Platelet Volume 7.2 FL Neutrophils (%) (Auto) 60.3 % Lymphocytes (%) (Auto) 26.3 % Monocytes (%) (Auto) 12.3 % Eosinophils (%) (Auto) 0.7 % Basophils (%) (Auto) 0.4 % Neutrophils # (Auto) 5.9 TH/MM3 Lymphocytes # (Auto) 2.6 TH/MM3 Monocytes # (Auto) 1.2 TH/MM3 Eosinophils # (Auto) 0.1 TH/MM3 Basophils # (Auto) 0.0 TH/MM3 CBC Comment DIFF FINAL Differential Comment Sodium Level 141 MEQ/L Potassium Level 4.3 MEQ/L Chloride Level 106 MEQ/L Carbon Dioxide Level 27.2 MEQ/L Anion Gap 8 MEQ/L Blood Urea Nitrogen 19 MG/DL Creatinine 0.92 MG/DL Estimat Glomerular Filtration 59 ML/MIN Rate Random Glucose 103 MG/DL Calcium Level 9.1 MG/DL Phosphorus Level 3.9 MG/DL Magnesium Level 1.9 MG/DL Physical Exam General General Appearance: Well Developed, No Acute Distress, Comfortable, Obese Eyes Eye Exam: Pupils Equal, Pupils Reactive Ears & Nose Ears & Nose Exam: Nasal Mucosa [place] Throat Throat Exam: Oral Mucosa [place] & Moist Neck Neck Exam: Neck Supple Pulmonary Resp Exam: Clear Bilaterally Cardiology CV Exam: Regular Gastrointestinal/Abdomen GI Exam: Soft, Non-Tender, Bowel Sounds Present Genitourinary Exam: Clear Urine Musculoskeletal MS Exam: Joints Intact, Good Strength (upper) Integumentary Skin Exam: Warm, Dry Extremeties Extremities Exam: Moderate Edema Neurologic Neuro Exam: Alert, Awake, Oriented, Speech Clear, Moving All Extremities Psychiatric Psych Exam: Appropriate Responses Assessment/Plan Assessment/Plan Assessment Recurrent syncope, etiology unclear, noncystic admission Restless leg syndrome, Requip has been discontinued because of the potential for syncope Cellulitis both lower extremities, improving, almost totally resolved Edema both lower extremities, improving with Bruce wraps Anemia Acute kidney injury, improved Recent heart surgery History of fibromyalgia, arthritis and obesity Management Discharge home today So far the syncope workup is negative stop Requip as it does in 12% of cases induce syncope Continue antibiotics Continuing Bruce wraps for both lower extremities Discharge home with home health Physical therapy Discussed with patient Discussed with nurse 45 minutes Guicho Valdes MD May 13, 2017 18:01
== END 2017-05-13 15:02 | disposition home health service (06) | DRG 603 ==
LOC: NEPC 10:31 → NEDA 13:06 → NEPHCDU 16:51 → OBSVTOIN 05-11 11:34 → HOCB 05-11 18:48
PROVIDERS: ADMIT Specialist; ATTEND Specialist
DX: L03.115 Cellulitis of right lower limb (principal); N17.9 Acute kidney failure, unspecified; E86.0 Dehydration; D64.9 Anemia, unspecified; R55 Syncope and collapse; L03.116 Cellulitis of left lower limb; I10 Essential (primary) hypertension; M79.7 Fibromyalgia; E66.9 Obesity, unspecified; F41.9 Anxiety disorder, unspecified; I25.10 Atherosclerotic heart disease of native coronary artery without angina pectoris; G25.81 Restless legs syndrome; I87.8 Other specified disorders of veins; G43.909 Migraine, unspecified, not intractable, without status migrainosus; Z86.718 Personal history of other venous thrombosis and embolism; Z79.01 Long term (current) use of anticoagulants; Z86.73 Personal history of transient ischemic attack (TIA), and cerebral infarction without residual deficits; Z95.2 Presence of prosthetic heart valve; Z68.38 Body mass index [BMI] 38.0-38.9, adult
CPT/HCPCS: 70450; 70551; 71010; 76937; 80048; 80053; 81001; 82272; 82533; 82550; 82552; 83735; 83880; 84100; 84484; 85025; 85610; 85730; 93005; 93970; 95819; G0378; J0696

== ENCOUNTER 2017-05-18 19:44 | Emergency (ER) | payer MEDICARE ==
[~2017-05-18 19:44] MED LIST changes: +ALDA50TA2 PO; -ALPR0.5T3 PO; +APIX5TAB PO; +ASPI1TAB73 PO; -ASPI325T PO; +BUME1TAB PO; -CYAN100017 PO; +ESSE250T PO; -FLON0.053; +FLUT1SPR5 EACH NARE; -HYDR-1530 PO; -HYDR-2768 PO; +LIPI40TA PO; -MAGN500T4 PO; -MECL25CH PO; +METO25TA3 PO; -MULT-65 PO; -ONDA4TAB7 PO; +POTA10TA2 PO; -PROBCAP4 PO; +PYRI100T PO; -ROPI2TAB23 PO; -VITA400D PO; +WALKER WHEELS/F1 MIS; +ZOFR8TAB PO
[2017-05-18 19:47] VITALS: BP 181/78; PULSE 96; RESP 16; TEMP 97.5; O2SAT 98
[2017-05-18] MEDS ORDERED: GABAPENTIN 300 MG CAP PO ONE (22:30)
[2017-05-18] MEDS ORDERED: LORazepam 2 MG/ML VIAL IM ONE (22:30)
--- NOTE | 2017-05-18 22:33 | PD ---
HPI Chief Complaint: Injury Time Seen by Provider: 22:04 Travel History International Travel<30 days: No Contact w/Intl Traveler<30days: No Traveled to known affect area: No History of Present Illness HPI This is an 82-year-old female who has a history of restless leg syndrome who presents to the emergency department having been taking off of her Requip when she was in the hospital recently because they thought it was contributing to her syncope. Ever since then she's been having increasing pain in her legs described as a burning, constant, moderate severity. She supposed to follow-up with pain management and get an injection in her back but the pain management doctor who is agricultural economics professor is not willing to do it because she takes Eliquis. They prescribed her Flexeril which she took earlier today and she says that took the edge off but she still really uncomfortable so she came to the emergency department. She says she hasn't slept in 2 nights. PFSH Past Medical History Hx Anticoagulant Therapy: Yes (ELIQUIS) Asthma: No Cancer: No Cardiovascular Problems: Yes COPD: No Diabetes: No Diminished Hearing: No Endocrine: No Gastrointestinal Disorders: No Genitourinary: No Hepatitis: No Hiatal Hernia: No Hypertension: Yes Immune Disorder: Yes (fibromyalgia ) Musculoskeletal: Yes (fibromyalgia, arthritis, right rotator cuff repair ) Neurologic: Yes (hx of stroke ) Reproductive: No Respiratory: No Sleep Apnea: Yes Thyroid Disease: Yes (when ) ?: Not Menopausal: Yes Past Surgical History AICD: No Cardiac Surgery: No Ear Surgery: Yes (PE tubes x 10 ) Eye Surgery: Yes (bilateral chalazion sx ) Genitourinary Surgery: Yes (hysterectomy 1975) Joint Replacement: Yes (R knee, L shoulder ) Oral Surgery: No Pacemaker: No Thoracic Surgery: No Other Surgery: Yes (heart valve replacement, hysterectomy, right knee ) Social History Alcohol Use: No Tobacco Use: No Substance Use: No Allergies-Medications (Allergen,Severity, Reaction): Coded Allergies: Biaxin (Verified Allergy, Severe, nausea, vomiting, 05/18/17) Celebrex (Verified Allergy, Intermediate, hives, 05/18/17) Percocet (Verified Allergy, Intermediate, hives, 05/18/17) Vioxx (Verified Allergy, Intermediate, hives, 05/18/17) Reported Meds & Prescriptions Reported Meds & Active Scripts Active Walker with Front Wheels (Device) 1 Mis Mis 1 Ea .ROUTE DIRECTED with seat preferably red Reported Magnesium 250 Mg Tab 250 Mg PO BID Vitamin B-6 (Pyridoxine HCl) 100 Mg Tab 100 Mg PO DAILY Potassium Chloride ER (Potassium Chloride) 10 Meq Tab 20 Meq PO BID Bumetanide 1 Mg Tab 1 Mg PO DAILY Eliquis (Apixaban) 5 Mg Tab 5 Mg PO BID Lipitor (Atorvastatin Calcium) 40 Mg Tab 40 Mg PO HS Metoprolol Tartrate 25 Mg Tab 25 Mg PO BID Zofran (Ondansetron HCl) 8 Mg Tab 8 Mg PO TID PRN Caitlin Aspirin EC Low Dose (Aspirin) 81 Mg Tabdr 81 Mg PO DAILY Aldactone (Spironolactone) 50 Mg Tab 50 Mg PO BID Flonase Nasal [place] (Fluticasone Nasal [place]) 50 Mcg/Act [place] 2 [place] EACH NARE DAILY Review of Systems Except as stated in HPI: all other systems reviewed are Neg Physical Exam Narrative GENERAL:Well appearing, no acute distress SKIN: Focused skin assessment warm and dry. HEAD: Atraumatic. Normocephalic. EYES: Pupils equal and round. No injection or drainage. ENT: Moist mucous membranes NECK: Trachea midline. CARDIOVASCULAR: Regular rate and rhythm. No murmur appreciated. RESPIRATORY: Clear to auscultation. Breath sounds equal bilaterally. GASTROINTESTINAL: Abdomen soft, non-tender, nondistended. MUSCULOSKELETAL: No obvious deformities. 3+ pitting edema bilateral lower extremities NEUROLOGICAL: Awake and alert. No obvious cranial nerve deficits. Moving all extremities PSYCHIATRIC: Appropriate mood and affect; insight and judgment normal. Data Data Last Documented VS Vital Signs Date Time Temp Pulse Resp B/P Pulse Ox O2 Delivery O2 Flow Rate FiO2 05/18/17 22:36 82 16 124/58 95 05/18/17 19:47 97.5 Orders Gabapentin (Neurontin) (05/18/17 22:30) Lorazepam Inj (Ativan Inj) (05/18/17 22:30) MDM Medical Decision Making Medical Screen Exam Complete: Yes Emergency Medical Condition: Yes Interpretation(s) Afebrile, mild tachycardia, hypertensive Differential Diagnosis Restless leg syndrome, chronic pain Narrative Course This is an 82-year-old female who presents to the emergency department with chronic leg pain. She is doing worse and she's been off of her Requip. Here in the emergency department she has a nonfocal exam. She was given half a milligram of Ativan and gabapentin to which she responded nicely and was much more comfortable. Patient will be discharged on gabapentin and was asked to follow up with her primary care physician. Diagnosis Primary Impression: Restless leg syndrome, uncontrolled Patient Instructions: General Instructions Additional Instructions: If you develop severe chest pain, shortness of breath, sweating, lightheadedness , dizziness or difficulty breathing return to the emergency department immediately. Followup with your primary care physician in 2-3 days if your symptoms are not resolved. Med/Other Pt SpecificInfo: Prescription(s) given Scripts Gabapentin 300 Mg [id number] Mg PO TID #90 CAP Ref 0 Prov:Marcia Moon MD 05/18/17 Disposition: 01 DISCHARGE HOME Condition: Stable Marcia Moon MD May 18, 2017 22:33
[2017-05-18 22:36] VITALS: BP 124/58; PULSE 82; RESP 16; O2SAT 95
[2017-05-18] MEDS ORDERED: GABA300C5 PO (23:26)
== END 2017-05-19 00:11 | disposition home or self-care (01) ==
LOC: NEPE 19:44
DX: G25.81 Restless legs syndrome (principal); I10 Essential (primary) hypertension; M79.7 Fibromyalgia; M19.90 Unspecified osteoarthritis, unspecified site; E07.9 Disorder of thyroid, unspecified; Z79.82 Long term (current) use of aspirin; Z79.899 Other long term (current) drug therapy; Z88.5 Allergy status to narcotic agent; Z88.8 Allergy status to other drugs, medicaments and biological substances
CPT/HCPCS: 96372; 99284; J2060

== ENCOUNTER 2017-06-29 11:23 | Emergency (ER) | payer MEDICARE ==
[~2017-06-29] VITALS: Ht 157.5 cm; Wt 100.0 kg
[~2017-06-29 11:23] MED LIST changes: +GABA300C5 PO
[2017-06-29 11:42] VITALS: BP 170/72; PULSE 94; RESP 19; TEMP 98.3; O2SAT 98
[2017-06-29 11:45] VITALS: O2SAT 97
[2017-06-29] MEDS ORDERED: SODIUM CHLORIDE 0.9% FLUSH 10 ML FLUSH IVF PRN (11:45)
--- NOTE | 2017-06-29 11:46 | PD ---
HPI Chief Complaint: Fall Time Seen by Provider: 11:36 Travel History International Travel<30 days: No Contact w/Intl Traveler<30days: No Traveled to known affect area: No History of Present Illness HPI 82 YO F with PMH of HTN, anxiety, AVR, DVT on Eliquis presents to the ED via EMS for evaluation after fall at home today. The patient is unsure if she tripped or became dizzy and tripped. She is unsure if she lost consciousness. She is unsure what time the accident occurred. On presentation she complains of "all over pain," "pain in my left shoulder" and "swelling and redness in my legs since August." The patient denies CP, SOB, N/V. She is followed by Dr. Amrit Berger. [facility] Past Medical History Hx Anticoagulant Therapy: Yes (ELIQUIS) Asthma: No Cancer: No Cardiovascular Problems: Yes COPD: No Cerebrovascular Accident: Yes Diabetes: Yes (PRE) Patient Takes Glucophage: No Diminished Hearing: No Endocrine: No Gastrointestinal Disorders: No Genitourinary: No Hepatitis: No Hiatal Hernia: No Hypertension: Yes Immune Disorder: Yes (fibromyalgia ) Musculoskeletal: Yes (fibromyalgia, arthritis, right rotator cuff repair ) Neurologic: Yes (hx of stroke ) Reproductive: No Respiratory: No Sleep Apnea: Yes Thyroid Disease: Yes Menopausal: Yes : 4 Para: 4 Past Surgical History AICD: No Appendectomy: Yes Cardiac Surgery: No Ear Surgery: Yes (PE tubes x 10 ) Eye Surgery: Yes (bilateral chalazion sx ) Genitourinary Surgery: Yes (hysterectomy 1975) Hysterectomy: Yes Joint Replacement: Yes (R knee, L shoulder ) Oral Surgery: No Pacemaker: No Thoracic Surgery: No Other Surgery: Yes (heart valve replacement, hysterectomy, right knee L/R ROTATOR CUFF SX ) Social History Alcohol Use: No Tobacco Use: No Substance Use: No Allergies-Medications (Allergen,Severity, Reaction): Coded Allergies: clarithromycin (Unverified Allergy, Severe, nausea, vomiting, 06/29/17) acetaminophen (Unverified Allergy, Intermediate, hives, 06/29/17) celecoxib (Unverified Allergy, Intermediate, hives, 06/29/17) oxycodone (Unverified Allergy, Intermediate, hives, 06/29/17) rofecoxib (Unverified Allergy, Intermediate, hives, 06/29/17) Reported Meds & Prescriptions Reported Meds & Active Scripts Active Gabapentin 300 Mg Cap 300 Mg PO TID Reported Protonix (Pantoprazole Sodium) 40 Mg Tab 40 Mg PO DAILY Requip (Ropinirole) 5 Mg Tab 5 Mg PO TID Rizatriptan (Rizatriptan Benzoate) 10 Mg Tab 10 Mg PO AT ONSET PRN May repeat 1 time in 2hrs if not pain free [place] (Hydrocodone-Acetaminophen) 10-325 Mg Tab 1 Tab PO Q6H PRN Magnesium 250 Mg Tab 250 Mg PO BID Potassium Chloride ER (Potassium Chloride) 10 Meq Tab 20 Meq PO BID Bumetanide 1 Mg Tab 1 Mg PO DAILY Eliquis (Apixaban) 5 Mg Tab 5 Mg PO BID Lipitor (Atorvastatin Calcium) 40 Mg Tab 40 Mg PO HS Metoprolol Tartrate 25 Mg Tab 25 Mg PO BID Zofran (Ondansetron HCl) 8 Mg Tab 8 Mg PO TID PRN Caitlin Aspirin EC Low Dose (Aspirin) 81 Mg Tabdr 81 Mg PO DAILY Aldactone (Spironolactone) 50 Mg Tab 50 Mg PO BID Flonase Nasal [place] (Fluticasone Nasal [place]) 50 Mcg/Act [place] 2 [place] EACH NARE DAILY Review of Systems Except as stated in HPI: all other systems reviewed are Neg Physical Exam Narrative GENERAL: Well-nourished, well-developed white female in NAD.. SKIN: Focused skin assessment warm/dry. Periorbital ecchymosis of the right eye. HEAD: Normocephalic. Atraumatic. No tenderness to palpation of the skull or facial bones. EYES: No scleral icterus. No injection or drainage. NECK: Supple, trachea midline. No JVD or lymphadenopathy. Patient retains full, active, painless ROM. No midline TTP. CARDIOVASCULAR: Regular rate and rhythm without murmurs, gallops, or rubs. RESPIRATORY: Breath sounds clear and equal bilaterally. No accessory muscle use. GASTROINTESTINAL: Abdomen soft, non-tender, nondistended. MUSCULOSKELETAL: No cyanosis. Pitting edema and erythema of the bilateral lower extremities. No warmth. No drainage. Homans sign negative bilaterally. 2+ DP pulses bilaterally. Sensation intact to light touch distally. NEUROLOGICAL: Awake and alert. Cranial nerves II through XII intact. Motor and sensory grossly within normal limits. 5/5 muscle strength in all muscle groups. Normal speech. BACK: Nontender without obvious deformity. No CVA tenderness. Data Data Last Documented VS Vital Signs Date Time Temp Pulse Resp B/P (MAP) Pulse Ox O2 Delivery O2 Flow Rate FiO2 06/29/17 17:35 06/29/17 15:00 88 22 97 Room Air 06/29/17 11:42 98.3 Orders Orders Electrocardiogram (06/29/17 11:33) Complete Blood Count With Diff (06/29/17 11:33) Comprehensive Metabolic Panel (06/29/17 11:33) Magnesium (Mg) (06/29/17 11:33) B-Type Natriuretic Peptide (06/29/17 11:33) Ckmb (Isoenzyme) Profile (06/29/17 11:33) Troponin I (06/29/17 11:33) Act Partial Throm Time (Ptt) (06/29/17 11:33) Prothrombin Time / Inr (Pt) (06/29/17 11:33) Chest, Single Ap (06/29/17 11:33) Ct Brain W/O Iv Contrast(Rout) (06/29/17 11:33) Ct Cerv Spine W/O Contrast (06/29/17 11:33) Ecg Monitoring (06/29/17 11:33) Iv Access Insert/Monitor (06/29/17 11:33) Oximetry (06/29/17 11:33) Sodium Chloride 0.9% Flush (Ns Flush) (06/29/17 11:45) Ct Facial Bones W/O Iv Cont (06/29/17 11:33) Shoulder, Complete (>2vws) (06/29/17 11:53) Ice/Cold Pack (06/29/17 11:53) Vascular Access Team Consult/P PRN (06/29/17 12:52) Vascular Poc Ultrasound (06/29/17 ) CKMB (06/29/17 13:35) CKMB% (06/29/17 13:35) Labs Laboratory Tests Test 06/29/17 13:35 White Blood Count 10.5 TH/MM3 Red Blood Count 3.74 MIL/MM3 Hemoglobin 10.5 GM/DL Hematocrit 32.8 % Mean Corpuscular Volume 87.8 FL Mean Corpuscular Hemoglobin 28.0 PG Mean Corpuscular Hemoglobin Concent 31.9 % Red Cell Distribution Width 17.1 % Platelet Count 196 TH/MM3 Mean Platelet Volume 7.3 FL Neutrophils (%) (Auto) 69.7 % Lymphocytes (%) (Auto) 18.2 % Monocytes (%) (Auto) 10.5 % Eosinophils (%) (Auto) 1.1 % Basophils (%) (Auto) 0.5 % Neutrophils # (Auto) 7.3 TH/MM3 Lymphocytes # (Auto) 1.9 TH/MM3 Monocytes # (Auto) 1.1 TH/MM3 Eosinophils # (Auto) 0.1 TH/MM3 Basophils # (Auto) 0.1 TH/MM3 CBC Comment DIFF FINAL Differential Comment Prothrombin Time 10.6 SEC Prothromb Time International Ratio 1.0 RATIO Activated Partial Thromboplast Time 24.5 SEC Blood Urea Nitrogen 28 MG/DL Creatinine 0.75 MG/DL Random Glucose 91 MG/DL Total Protein 6.5 GM/DL Albumin 3.0 GM/DL Calcium Level 8.9 MG/DL Magnesium Level 2.4 MG/DL Alkaline Phosphatase 90 U/L Aspartate Amino Transf (AST/SGOT) 31 U/L Alanine Aminotransferase (ALT/SGPT) 27 U/L Total Bilirubin 0.3 MG/DL Sodium Level 143 MEQ/L Potassium Level 4.0 MEQ/L Chloride Level 110 MEQ/L Carbon Dioxide Level 25.3 MEQ/L Anion Gap 8 MEQ/L Estimat Glomerular Filtration Rate 74 ML/MIN Total Creatine Kinase 127 U/L Creatine Kinase MB 3.6 NG/ML Troponin I LESS THAN 0.02 NG/ML B-Type Natriuretic Peptide 56 PG/ML MDM Medical Decision Making Medical Screen Exam Complete: Yes Emergency Medical Condition: Yes Interpretation(s) EKG: Rate 97, sinus rhythm. LAD, RBBB. No acute ST changes. Reviewed by Differential Diagnosis Facial fracture versus orbital ecchymosis versus ICH versus musculoskeletal pain versus shoulder fracture versus cellulitis versus CHF versus ACS versus other Narrative Course 82 YO F with PMH of HTN, anxiety, AVR, DVT on Eliquis presents to the ED via EMS for evaluation after fall at home today. The patient is unsure if she tripped or became dizzy and tripped. She is unsure if she lost consciousness. She is unsure what time the accident occurred. On presentation she complains of "all over pain," "pain in my left shoulder" and "swelling and redness in my legs since August." The patient denies dizziness, headache, vision changes, CP , SOB, N/V. She is followed by Dr. Bee. Vitals reviewed. Physical exam reveals a well appearing white female in NAD. Periorbital ecchymosis of the right eye without tenderness to palpation of the skull and facial bones. Patient retains full, active, painless RM of the neck. No midline tenderness to palpation. No focal neuro deficits. She does have pitting edema and erythema of the bilateral lower extremities without warmth, drainage. Homans sign negative bilaterally. Neurovascularly intact. CBC: WBC 10.5, hemoglobin 2.5. Coags: INR 1.0. CMP: BUN 28, creatinine 0.75. BNP 56. EKG as above. Cardiac enzymes negative 1. Chest x-ray left lower lobe infiltrate versus atelectasis. No pulmonary symptoms reported. No elevation of white count. Breath sounds clear. Likely atelectasis. CT cervical spine: No fracture, or dislocation. Degenerative changes noted. Head CT: No acute disease. Maxillofacial CT: No acute bony injury. All radiological findings per radiologist read. Review of patient's records reveals that she has had chronic edema in the bilateral lower extremities. No elevation of the white count to support a diagnosis of cellulitis. The patient had a CT workup with an extended stay in the hospital this month. She has outpatient follow-up scheduled with multiple providers. I discussed the patient with Dr. Peters. We feel she is stable for discharge and outpatient follow-up. Discussed this plan with the patient who is agreeable. She is stable and discharged home. Diagnosis Primary Impression: Fall Qualified Codes: W19.XXXA - Unspecified fall, initial encounter Additional Impression: Traumatic periorbital ecchymosis of right eye Qualified Codes: S05.11XA - Contusion of eyeball and orbital tissues, right eye, initial encounter Referrals: Primary Care Physician Patient Instructions: Ecchymosis (ED), Fall Prevention for Children (ED), General Instructions Additional Instructions: Rest, hydrate. Resume all at home medications as previously prescribed. Return to normal, gentle activities as tolerated. Follow-up with the primary care provider as discussed. Return to the ED for any urgent or emergent medical condition. Disposition: DISCHARGE HOME Condition: Stable Marlene Mariscal Jun 29, 2017 11:46
--- NOTE | 2017-06-29 13:05 | RADRPT ---
EXAM DATE/TIME: 06/29/2017 12:31 [place] COMPARISON: CT BRAIN W/O CONTRAST, May 09, 2017, 12:21. INDICATIONS : Dizziness. Fall, right eye swelling. RADIATION DOSE: 56.35 CTDIvol (mGy) MEDICAL HISTORY : Hypertension. Cerebrovascular disease. SURGICAL HISTORY : Fusion, cervical. Hysterectomy. ENCOUNTER: Initial ACUITY: 1 day PAIN SCALE: 3/10 LOCATION: Bilateral cranial TECHNIQUE: Multiple contiguous axial images were obtained of the head. Using automated exposure control and adj ustment of the mA and/or kV according to patient size, radiation dose was kept as low as reasonably a chievable to obtain optimal diagnostic quality images. DICOM format image data is available electro nically for review and comparison. FINDINGS: CEREBRUM: The ventricles are normal for age. No evidence of midline shift, mass lesion, hemorrhage or acute in farction. No extra-axial fluid collections are seen. This demonstrates deep white matter microvascul ar ischemic demyelinization a cyst stable and unchanged POSTERIOR FOSSA: The cerebellum and brainstem are intact. The 4th ventricle is midline. The cerebellopontine angle i s unremarkable. EXTRACRANIAL: The visualized portion of the orbits is intact. SKULL: The calvaria is intact. No evidence of skull fracture. CONCLUSION: No acute disease. 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 Jin Singer MD on June 29, 2017 at 13:01 Board Certified Radiologist. This report was verified electronically.
--- NOTE | 2017-06-29 13:08 | RADRPT ---
EXAM DATE/TIME: 06/29/2017 12:31 [facility] COMPARISON: No previous studies available for comparison. INDICATIONS : Dizziness. Fall, right eye swelling. RADIATION DOSE: 26.35 CTDIvol (mGy) MEDICAL HISTORY : Hypertension. Cerebrovascular disease. SURGICAL HISTORY : Fusion, cervical. Hysterectomy. ENCOUNTER: Initial ACUITY: 1 day PAIN SCORE: 3/10 LOCATION: Right facial TECHNIQUE: Volumetric scanning of the facial bones was performed. Using automated exposure control and adjustme nt of the mA and/or kV according to patient size, radiation dose was kept as low as reasonably achiev able to obtain optimal diagnostic quality images. DICOM format image data is available electronicall y for review and comparison. FINDINGS: ORBITS: The orbital and infraorbital osseous structures are intact. The retroconal structures have a normal configuration. No radiopaque foreign bodies are seen. NASAL BONE: The nasal bone and maxillary spine are intact ZYGOMATIC ARCHES: Symmetric without evidence of fracture. SINUSES: The maxillary, ethmoid and frontal sinuses are intact. No air-fluid levels seen. NASAL CAVITY: The nasal septum is intact and midline. The lacrimal ducts are intact. SOFT TISSUES: Superficial soft tissue swelling along the right lateral orbital wall.. INTRACRANIAL: No intracranial air seen. CRIBIFORM PLATE: Grossly intact. Bony structures. No acute bony injury. Degenerative arthritic changes of the le ft temporomandibular joint. CONCLUSION: No acute bony injury. Soft tissue swelling superficial to the lateral right orbital wall. Jin Singer MD on June 29, 2017 at 13:04 Board Certified Radiologist. This report was verified electronically.
[2017-06-29] MEDS ORDERED: REQU5TAB PO (13:09)
[2017-06-29] MEDS ORDERED: HYDR-3366 PO (13:09)
[2017-06-29] MEDS ORDERED: RIZA10TA2 PO (13:09)
[2017-06-29] MEDS ORDERED: PROT40TA PO (13:13)
--- NOTE | 2017-06-29 13:16 | RADRPT ---
EXAM DATE/TIME: 06/29/2017 12:31 [facility] COMPARISON: No previous studies available for comparison. INDICATIONS : Dizziness. Fall, right eye swelling. RADIATION DOSE: 31.81 CTDIvol (mGy) MEDICAL HISTORY : Hypertension. Cerebrovascular disease. SURGICAL HISTORY : Fusion, cervical. Hysterectomy. ENCOUNTER: Initial ACUITY: 1 day PAIN SCALE: 3/10 LOCATION: Right facial TECHNIQUE: Volumetric scanning of the cervical spine was performed. Multiplanar reconstructions in the sagittal, coronal and oblique axial planes were performed. Using automated exposure control and adjustment o f the mA and/or kV according to patient size, radiation dose was kept as low as reasonably achievable to obtain optimal diagnostic quality images. DICOM format image data is available electronically f or review and comparison. FINDINGS: VERTEBRAE: There is an anterior fusion plate involving C4-C5, C5-C6, and C6-C7 with intervening bone graft mater ial. Vertebral body heights are maintained. ALIGNMENT: There is a minimal grade 1 anterolisthesis of C7 on T1. There is straightening of the cervical spine. C2-C3: The bony spinal canal is normal in size. No evidence of disc bulge or herniation. Bony uncovertebral hypertrophy which generates mild narrowing of the left neural foramen. The right remains patent. C3-C4: There is a broad-based disc osteophyte complex that flattens the ventral portion of the central canal . Prominent bony uncovertebral hypertrophy which is more abundant on the left causes bilateral modera te neural foraminal narrowing. There is narrowing of the lateral recesses bilaterally as well. C4-C5: This level is fused. Artifact from the hardware. Central canal is grossly patent. Bony uncovertebral hypertrophy generates bilateral neural foraminal narrowing more pronounced on the left. C5-C6: This level is fused. Artifact from the hardware. Central canal is grossly patent. Neural foramina are patent. C6-C7: This level is fused. Artifact from the hardware. Central canal is grossly patent. Neural foramina are patent. C7-T1: The bony spinal canal is normal in size. No evidence of disc bulge or herniation. The neural forami na are bilaterally patent. CONCLUSION: 1. No fracture or dislocation. 2. Multilevel degenerative changes. 3. Anterior fusion extending from C4-C7. Jeremy Andino Jr., MD on June 29, 2017 at 13:09 Board Certified Radiologist. This report was verified electronically.
[2017-06-29 13:30] VITALS: BP 180/74; PULSE 78; RESP 14; O2SAT 96
--- NOTE | 2017-06-29 13:33 | RADRPT ---
EXAM DATE/TIME: 06/29/2017 13:22 [facility] COMPARISON: CHEST SINGLE AP, May 09, 2017, 11:34. INDICATIONS : Shortness of breath. MEDICAL HISTORY : Stroke. Thyroid disease. TIA. Anticoagulant therapy. Hypertension. Sleep apnea. SURGICAL HISTORY : Hysterectomy. Eye surgery. Right rotator cuff repair. Cervical diskectomy ENCOUNTER: Initial ACUITY: 1 day PAIN SCORE: 0/10 LOCATION: Bilateral chest FINDINGS: Again appreciated is prior median sternotomy cardiac surgery. Anterior cervical fusion plate is in pl syl. Right lung remains clear. Left lung base reveals silhouetting and indistinctness of the left hem idiaphragm suggesting lower lobe infiltrate or atelectasis. CONCLUSION: Change in left lung base with indistinctness of the hemidiaphragm and probable left lower lobe infilt rate or atelectasis Jin Singer MD on June 29, 2017 at 13:30 Board Certified Radiologist. This report was verified electronically.
--- NOTE | 2017-06-29 13:36 | RADRPT ---
EXAM DATE/TIME: 06/29/2017 13:25 [facility] COMPARISON: No previous studies available for comparison. INDICATIONS : Left shoulder pain, fall. MEDICAL HISTORY : None. SURGICAL HISTORY : Left shoulder replacement ENCOUNTER: Initial ACUITY: 1 day PAIN SCORE: 7/10 LOCATION: Left proximal shoulder FINDINGS: Shoulder prosthesis remains in place with no evidence of loosening and there is no evidence of fractu re or dislocation. Degenerative changes a.c. joint appreciated as well as of the glenoid fossa. Scapu la is intact. CONCLUSION: Shoulder prosthesis in place intact without loosening. No acute bony injury or dislocation. Degenerative findings of the a.c. joint and glenoid fossa Jin Singer MD on June 29, 2017 at 13:33 Board Certified Radiologist. This report was verified electronically.
[2017-06-29 14:00] VITALS: BP 138/61; PULSE 78; RESP 21; O2SAT 96
[2017-06-29 14:10] LABS: AUTOMATED NEUTROPHIL # 7.3 TH/MM3 (1.8-7.7); BASOPHIL # 0.1 TH/MM3 (0-0.2); BASOPHIL % 0.5 % (0.0-2.0); EOSINOPHIL # 0.1 TH/MM3 (0-0.4); EOSINOPHIL % 1.1 % (0.0-4.0); HEMATOCRIT 32.8 % (35.0-46.0); HEMO FLAGS DIFF FINAL; LYMPH % 18.2 % (9.0-44.0); LYMPHOCYTE # 1.9 TH/MM3 (1.0-4.8); MEAN CELL VOLUME 87.8 FL (80.0-100.0); MEAN CORPUSCULAR HGB CONC 31.9 % (32.0-36.0); MONO % 10.5 % (0.0-8.0); NEUT % 69.7 % (16.0-70.0); PLATELET COUNT 196 TH/MM3 (150-450); RED BLOOD COUNT 3.74 MIL/MM3 (4.00-5.30); RED CELL DISTRIBUTION WIDTH 17.1 % (11.6-17.2); WHITE BLOOD COUNT 10.5 TH/MM3 (4.0-11.0)
[2017-06-29 14:16] LABS: APTT (PATIENT) 24.5 SEC (24.3-30.1); PROTHROMBIN TIME - PATIENT 10.6 SEC (9.8-11.6)
[2017-06-29 14:29] LABS: ALT (GPT) 27 U/L (10-53); ANION GAP 8 MEQ/L (5-15); AST (GOT) 31 U/L (15-37); BICARBONATE 25.3 MEQ/L (21.0-32.0); BLOOD UREA NITROGEN 28 MG/DL (7-18); CHLORIDE 110 MEQ/L (98-107); GLOMERULAR FILTRATION RATE 74 ML/MIN (>89); MAGNESIUM 2.4 MG/DL (1.5-2.5); SODIUM (NA) 143 MEQ/L (136-145)
[2017-06-29 14:32] LABS: ALKALINE PHOSPHATASE 90 U/L (45-117); CREATINE KINASE 127 U/L (26-192); TOTAL BILIRUBIN ADULT 0.3 MG/DL (0.2-1.0)
[2017-06-29 14:44] LABS: CKMB 3.6 NG/ML (0.5-3.6)
[2017-06-29 15:00] VITALS: BP 159/69; PULSE 88; RESP 22; O2SAT 97
--- NOTE | 2017-06-30 16:59 | EKG ---
Date Performed: 06/29/2017 Time Performed: 11:37:11 PTAGE: 82 years EKG: Sinus rhythm LEFT ATRIAL ENLARGEMENT MARKED LEFT AXIS DEVIATION RIGHT BUNDLE BRANCH BLOCK Baseline artifact Likel y no significant change ABNORMAL ECG PREVIOUS TRACING : 05/09/2017 @ 1100 DOCTOR: Bettina Boyd Interpretating Date/Time 06/30/2017 16:58:33
== END 2017-06-29 17:36 | disposition home or self-care (01) ==
LOC: NEPC 11:23 → NEDAMB 17:36
DX: S05.11XA Contusion of eyeball and orbital tissues, right eye, initial encounter (principal); R60.9 Edema, unspecified; R42 Dizziness and giddiness; M79.7 Fibromyalgia; R94.31 Abnormal electrocardiogram [ECG] [EKG]; I51.7 Cardiomegaly; I45.10 Unspecified right bundle-branch block; I10 Essential (primary) hypertension; X58.XXXA Exposure to other specified factors, initial encounter
CPT/HCPCS: 70450; 70486; 71010; 72125; 73030; 76937; 80053; 82550; 82552; 83735; 83880; 84484; 85025; 85610; 85730; 93005; 99285

== ENCOUNTER 2017-08-24 11:12 | Emergency (ER) | payer MEDICARE ==
[~2017-08-24] VITALS: Ht 157.5 cm; Wt 96.5 kg
[~2017-08-24 11:12] MED LIST changes: +HYDR-3366 PO; +PROT40TA PO; -PYRI100T PO; +REQU5TAB PO; +RIZA10TA2 PO; -WALKER WHEELS/F1 MIS
[2017-08-24 11:17] VITALS: BP 142/81; PULSE 89; RESP 16; TEMP 98.6; O2SAT 98
--- NOTE | 2017-08-24 11:17 | PD ---
Physical Exam Date Seen by Provider: Aug 24, 2017 Time Seen by Provider: 11:17 Narrative 82-year-old female who presents the emergency department with worsening right hip pain over the past week. 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 She is trying to treated on her own at home without relief. She denies any specific injury. Pain is currently 8 out of 10. She is having difficulty ambulating secondary to her pain. She denies fever chills or other symptoms. She is allergic to acetaminophen, Celebrex, clarithromycin, oxycodone, rofecoxib. Data Data Last Documented VS Vital Signs Date Time Temp Pulse Resp B/P (MAP) Pulse Ox O2 Delivery O2 Flow Rate FiO2 08/24/17 11:17 98.6 89 16 142/81 (101) 98 MDM Medical Record Reviewed: Yes Supervised Visit with IDA: Yes Narrative Course vital signs are stable. Patient is awaiting bed placement. Condition: Stable Jeff Rosado Aug 24, 2017 11:17
[2017-08-24] MEDS ORDERED: XARE20TA PO (12:50)
[2017-08-24] MEDS ORDERED: SODIUM CHLORIDE 0.9% FLUSH 10 ML FLUSH IVF PRN (13:30)
--- NOTE | 2017-08-24 13:57 | RADRPT ---
EXAM DATE/TIME: 08/24/2017 13:44 [facility] COMPARISON: No previous studies available for comparison. INDICATIONS : Right hip pain, no known injury. MEDICAL HISTORY : Stroke. Thyroid disease. TIA. Anticoagulant therapy. Hypertension. Sleep apnea. SURGICAL HISTORY : Hysterectomy. Eye surgery. Right rotator cuff repair. Cervical diskectomy ENCOUNTER: Initial ACUITY: 1 week PAIN SCORE: 10/10 LOCATION: Right hip FINDINGS: 3 views of the pelvis and right hip show joint space narrowing with periarticular sclerotic change an d osteophyte production involving both hip joints. No femoral head flattening or subchondral geode fo rmation. No fracture or dislocation. Soft tissues are unremarkable. CONCLUSION: Bilateral osteoarthritis of the hips. No acute abnormality. Jeremy Andino Jr., MD on August 24, 2017 at 13:54 Board Certified Radiologist. This report was verified electronically.
[2017-08-24 14:14] LABS: AUTOMATED NEUTROPHIL # 7.6 TH/MM3 (1.8-7.7); BASOPHIL # 0.1 TH/MM3 (0-0.2); BASOPHIL % 0.7 % (0.0-2.0); EOSINOPHIL # 0.1 TH/MM3 (0-0.4); EOSINOPHIL % 0.9 % (0.0-4.0); HEMATOCRIT 34.3 % (35.0-46.0); HEMO FLAGS DIFF FINAL; LYMPHOCYTE # 2.6 TH/MM3 (1.0-4.8); MEAN CELL VOLUME 88.9 FL (80.0-100.0); MEAN CORPUSCULAR HEMOGLOBIN 30.5 PG (27.0-34.0); MEAN CORPUSCULAR HGB CONC 34.3 % (32.0-36.0); NEUT % 67.4 % (16.0-70.0); PLATELET COUNT 262 TH/MM3 (150-450); RED BLOOD COUNT 3.86 MIL/MM3 (4.00-5.30); RED CELL DISTRIBUTION WIDTH 15.5 % (11.6-17.2); WHITE BLOOD COUNT 11.3 TH/MM3 (4.0-11.0)
[2017-08-24 14:31] LABS: APTT (PATIENT) 34.1 SEC (24.3-30.1); INTERNATIONAL NORMALIZED RATIO 1.2 RATIO; PROTHROMBIN TIME - PATIENT 13.2 SEC (9.8-11.6)
[2017-08-24 14:32] LABS: ALT (GPT) 18 U/L (10-53); ANION GAP 8 MEQ/L (5-15); AST (GOT) 15 U/L (15-37); BICARBONATE 24.3 MEQ/L (21.0-32.0); BLOOD UREA NITROGEN 16 MG/DL (7-18); CHLORIDE 107 MEQ/L (98-107); GLOMERULAR FILTRATION RATE 89 ML/MIN (>89); POTASSIUM 3.6 MEQ/L (3.5-5.1); SODIUM (NA) 139 MEQ/L (136-145)
[2017-08-24 14:34] LABS: ALKALINE PHOSPHATASE 110 U/L (45-117); TOTAL BILIRUBIN ADULT 0.3 MG/DL (0.2-1.0)
--- NOTE | 2017-08-24 14:38 | PD ---
HPI Chief Complaint: Hip Injury Time Seen by Provider: 13:16 Travel History International Travel<30 days: No Contact w/Intl Traveler<30days: No Traveled to known affect area: No History of Present Illness HPI 82 female complains of constant bilateral lower extremity pain and swelling. duration is several months however worsening over past few days. compliance with eliquis reported. no change with ambulation, hanging legs over bed or with elevation. no recent trauma however c/o right hip pain. 06/10 without modifying factor. PFSH Past Medical History Hx Anticoagulant Therapy: Yes (ELIQUIS) Asthma: No Cancer: No Cardiovascular Problems: Yes COPD: No Cerebrovascular Accident: Yes Diabetes: Yes (PRE) Patient Takes Glucophage: No Diminished Hearing: No Endocrine: No Gastrointestinal Disorders: No Genitourinary: No Hepatitis: No Hiatal Hernia: No Hypertension: Yes Immune Disorder: Yes (fibromyalgia ) Musculoskeletal: Yes (fibromyalgia, arthritis, right rotator cuff repair ) Neurologic: Yes (hx of stroke ) Reproductive: No Respiratory: No Sleep Apnea: Yes Thyroid Disease: Yes Menopausal: Yes : 4 Para: 4 Past Surgical History AICD: No Appendectomy: Yes Cardiac Surgery: No Ear Surgery: Yes (PE tubes x 10 ) Eye Surgery: Yes (bilateral chalazion sx ) Genitourinary Surgery: Yes (hysterectomy 1975) Hysterectomy: Yes Joint Replacement: Yes (R knee, L shoulder ) Oral Surgery: No Pacemaker: No Thoracic Surgery: No Other Surgery: Yes (heart valve replacement, hysterectomy, right knee L/R ROTATOR CUFF SX ) Social History Alcohol Use: No Tobacco Use: No Substance Use: No Allergies-Medications (Allergen,Severity, Reaction): Coded Allergies: clarithromycin (Unverified Allergy, Severe, nausea, vomiting, 08/24/17) acetaminophen (Unverified Allergy, Intermediate, hives, 08/24/17) celecoxib (Unverified Allergy, Intermediate, hives, 08/24/17) oxycodone (Unverified Allergy, Intermediate, hives, 08/24/17) rofecoxib (Unverified Allergy, Intermediate, hives, 08/24/17) Reported Meds & Prescriptions Reported Meds & Active Scripts Active Gabapentin 300 Mg Cap 600 Mg PO TID Reported Xarelto (Rivaroxaban) 20 Mg Tab 20 Mg PO DAILY Protonix (Pantoprazole Sodium) 40 Mg Tab 40 Mg PO DAILY Requip (Ropinirole) 5 Mg Tab 5 Mg PO TID Rizatriptan (Rizatriptan Benzoate) 10 Mg Tab 10 Mg PO AT ONSET PRN May repeat 1 time in 2hrs if not pain free [place] (Hydrocodone-Acetaminophen) 10-325 Mg Tab 1 Tab PO Q6H PRN Magnesium 250 Mg Tab 250 Mg PO BID Potassium Chloride ER (Potassium Chloride) 10 Meq Tab 20 Meq PO BID Bumetanide 1 Mg Tab 1 Mg PO DAILY Lipitor (Atorvastatin Calcium) 40 Mg Tab 40 Mg PO HS Metoprolol Tartrate 25 Mg Tab 25 Mg PO BID Zofran (Ondansetron HCl) 8 Mg Tab 8 Mg PO TID PRN Caitlin Aspirin EC Low Dose (Aspirin) 81 Mg Tabdr 81 Mg PO DAILY Aldactone (Spironolactone) 50 Mg Tab 50 Mg PO BID Flonase Nasal [place] (Fluticasone Nasal [place]) 50 Mcg/Act [place] 2 [place] EACH NARE DAILY Review of Systems Except as stated in HPI: all other systems reviewed are Neg Physical Exam Narrative GENERAL: wnwd 82 yo f pleasant SKIN: Warm and dry. HEAD: Atraumatic. Normocephalic. EYES: Pupils equal and round. No scleral icterus. No injection or drainage. ENT: No nasal bleeding or discharge. Mucous membranes pink and moist. NECK: Trachea midline. No JVD. CARDIOVASCULAR: Regular rate and rhythm. RESPIRATORY: No accessory muscle use. Clear to auscultation. Breath sounds equal bilaterally. GASTROINTESTINAL: Abdomen soft, non-tender, nondistended. Hepatic and splenic margins not palpable. MUSCULOSKELETAL: non-pitting edema bilateral LE. 2+ DP bilaterally. pt is ambulatory. NEUROLOGICAL: Awake and alert. No obvious cranial nerve deficits. Motor grossly within normal limits. Five out of 5 muscle strength in the arms and legs. Normal speech. PSYCHIATRIC: Appropriate mood and affect; insight and judgment normal. Data Data Last Documented VS Vital Signs Date Time Temp Pulse Resp B/P (MAP) Pulse Ox O2 Delivery O2 Flow Rate FiO2 08/24/17 16:22 08/24/17 11:17 98.6 89 16 98 Vital Signs Date Time Temp Pulse Resp B/P (MAP) Pulse Ox O2 Delivery O2 Flow Rate FiO2 08/24/17 16:22 08/24/17 11:17 98.6 89 16 142/81 (101) 98 Orders Orders Us Leg Venous Doppler (08/24/17 ) Complete Blood Count With Diff (08/24/17 13:18) Comprehensive Metabolic Panel (08/24/17 13:18) B-Type Natriuretic Peptide (08/24/17 13:18) Act Partial Throm Time (Ptt) (08/24/17 13:18) Prothrombin Time / Inr (Pt) (08/24/17 13:18) Urinalysis - C+S If Indicated (08/24/17 13:18) Iv Access Insert/Monitor (08/24/17 13:18) Ecg Monitoring (08/24/17 13:18) Oximetry (08/24/17 13:18) Sodium Chloride 0.9% Flush (Ns Flush) (08/24/17 13:30) Hip, Uni(Ap&Lat) W Ap Pelvis (08/24/17 ) Ed Discharge Order (08/24/17 16:11) Labs Laboratory Tests Test 08/24/17 13:55 08/24/17 14:20 White Blood Count 11.3 TH/MM3 Red Blood Count 3.86 MIL/MM3 Hemoglobin 11.8 GM/DL Hematocrit 34.3 % Mean Corpuscular Volume 88.9 FL Mean Corpuscular Hemoglobin 30.5 PG Mean Corpuscular Hemoglobin Concent 34.3 % Red Cell Distribution Width 15.5 % Platelet Count 262 TH/MM3 Mean Platelet Volume 6.8 FL Neutrophils (%) (Auto) 67.4 % Lymphocytes (%) (Auto) 23.0 % Monocytes (%) (Auto) 8.0 % Eosinophils (%) (Auto) 0.9 % Basophils (%) (Auto) 0.7 % Neutrophils # (Auto) 7.6 TH/MM3 Lymphocytes # (Auto) 2.6 TH/MM3 Monocytes # (Auto) 0.9 TH/MM3 Eosinophils # (Auto) 0.1 TH/MM3 Basophils # (Auto) 0.1 TH/MM3 CBC Comment DIFF FINAL Differential Comment Prothrombin Time 13.2 SEC Prothromb Time International Ratio 1.2 RATIO Activated Partial Thromboplast Time 34.1 SEC Blood Urea Nitrogen 16 MG/DL Creatinine 0.64 MG/DL Random Glucose 93 MG/DL Total Protein 7.1 GM/DL Albumin 3.2 GM/DL Calcium Level 9.2 MG/DL Alkaline Phosphatase 110 U/L Aspartate Amino Transf (AST/SGOT) 15 U/L Alanine Aminotransferase (ALT/SGPT) 18 U/L Total Bilirubin 0.3 MG/DL Sodium Level 139 MEQ/L Potassium Level 3.6 MEQ/L Chloride Level 107 MEQ/L Carbon Dioxide Level 24.3 MEQ/L Anion Gap 8 MEQ/L Estimat Glomerular Filtration Rate 89 ML/MIN B-Type Natriuretic Peptide 68 PG/ML Urine Color COLORLESS Urine Turbidity CLEAR Urine pH 6.0 Urine Specific [place] 1.005 Urine Protein NEG mg/dL Urine Glucose (UA) NEG mg/dL Urine Ketones NEG mg/dL Urine Occult Blood NEG Urine Nitrite NEG Urine Bilirubin NEG Urine Urobilinogen LESS THAN 2.0 MG/DL Urine Leukocyte Esterase NEG Urine RBC LESS THAN 1 /hpf Urine WBC 2 /hpf Urine Squamous Epithelial Cells 1 /hpf Urine Bacteria RARE /hpf Microscopic Urinalysis Comment CULT NOT INDICATED MDM Medical Decision Making Medical Screen Exam Complete: Yes Emergency Medical Condition: Yes Medical Record Reviewed: Yes Differential Diagnosis hypoalbumenmia, renal failure, cellulitis, dvt, fracture Narrative Course CBC & BMP Diagram 08/24/17 13:55 Total Protein 7.1, Albumin 3.2 L, Calcium Level 9.2, Alkaline Phosphatase 110, Aspartate Amino Transf (AST/SGOT) 15, Alanine Aminotransferase (ALT/SGPT) 18, Total Bilirubin 0.3 Last Impressions Lower Extremity Ultrasound 08/24/17 0000 Signed Impressions: Service Date/Time: Thursday, August 24, 2017 14:02 - CONCLUSION: Negative exam. No sonographic or Doppler findings of deep venous thrombosis. Ibrahima Pompa MD Hip and Pelvis X-Ray 08/24/17 0000 Signed Impressions: Service Date/Time: Thursday, August 24, 2017 13:44 - CONCLUSION: Bilateral osteoarthritis of the hips. No acute abnormality. Jeremy Andino Jr., MD work up unremarkable upon reassessment pt reports feeling much better and is desirous of a return home. Diagnosis Primary Impression: Leg edema Additional Impression: Neuropathic pain Referrals: Primary Care Physician call for appointment Additional Instructions: You have a choice when it comes to health care, and we are glad that you chose [facility]. Hopefully, we have met your expectations on today's visit. You are welcome to return to [facility] at any time, as we are committed to meeting the health care needs of our community. Med/Other Pt SpecificInfo: Prescription(s) given Scripts Gabapentin (Gabapentin) 300 Mg Cap 600 MG PO TID, #90 CAP 0 Refills Prov: Ventura Enriquez MD 08/24/17 Disposition: 01 DISCHARGE HOME Condition: Stable Ventura Enriquez MD Aug 24, 2017 14:38
[2017-08-24 15:21] LABS: BACTERIA, URINE RARE /hpf; BLOOD, URINE NEG (NEG); GLUCOSE,URINE NEG (NEG); KETONE, URINE NEG (NEG); NITRITE,URINE NEG (NEG); SQUAMOUS EPITHELIAL CELL URINE 1 /hpf (0-5); URINE COLOR COLORLESS (YELLW/STRAW)
--- NOTE | 2017-08-24 15:28 | RADRPT ---
EXAM DATE/TIME: 08/24/2017 14:02 [facility] COMPARISON: No previous studies available for comparison. INDICATIONS : Right leg swelling. MEDICAL HISTORY : Arthritis. Thyroid disease. CVA. HTN. Sleep apnea. Fibromyalgia. Prediabetic. Anticoagulant ther apy, Eliquis. SURGICAL HISTORY : Appendectomy. Hysterectomy. PE tubes x10. Bilateral chalazion surgery. Right rotator cuff repair. A nterior cervical diskectomy and fusion C4-5, C5-6, C6-7. Right knee surgery. Left shoulder surgery. H eart valve replacement. Blood transfusions. ENCOUNTER: Subsequent ACUITY: 1 day PAIN SCORE: 3/10 LOCATION: Right leg. TECHNIQUE: Venous ultrasound of the leg was performed from the inguinal ligament to the proximal calf. Real-zander e, color Doppler and spectral tracing, compression and augmentation techniques were used. FINDINGS: There is normal compressibility of the deep venous system from the inguinal region to the proximal ca lf. No echogenic clot is seen in the lumen of the common femoral, femoral, popliteal, and posterior tibial veins. There is a normal response of the venous system to proximal and distal augmentation an d respiration. CONCLUSION: Negative exam. No sonographic or Doppler findings of deep venous thrombosis. Ibrahima Pompa MD on August 24, 2017 at 15:26 Board Certified Radiologist. This report was verified electronically.
[2017-08-24 15:29] LABS: COMMENT (UR) CULT NOT INDICATED; CULTURE IF INDICATED CULT NOT INDICATED
[2017-08-24] MEDS ORDERED: GABA300C5 PO ×2 (15:59→16:15)
== END 2017-08-24 16:22 | disposition home or self-care (01) ==
LOC: NEPD 11:12
DX: R60.0 Localized edema (principal); G62.9 Polyneuropathy, unspecified; M16.0 Bilateral primary osteoarthritis of hip; R73.03 Prediabetes; I10 Essential (primary) hypertension; M79.7 Fibromyalgia; E07.9 Disorder of thyroid, unspecified; Z86.73 Personal history of transient ischemic attack (TIA), and cerebral infarction without residual deficits; Z79.82 Long term (current) use of aspirin
CPT/HCPCS: 73502; 80053; 81001; 83880; 85025; 85610; 85730; 93971; 99285

== ENCOUNTER 2017-09-13 06:07 | Observation (INO) | payer MEDICARE ==
[~2017-09-13] VITALS: Ht 157.5 cm; Wt 92.0 kg
[2017-09-13] VITALS (7 sets, daily range): BP systolic 122–141; BP diastolic 59–78; PULSE 74–100; RESP 15–18; TEMP 95.9–98.7; O2SAT 94–99
[~2017-09-13 06:07] MED LIST changes: -APIX5TAB PO; +XARE20TA PO
--- NOTE | 2017-09-13 06:49 | RADRPT ---
EXAM DATE/TIME: 09/13/2017 06:29 [facility] COMPARISON: CHEST SINGLE AP, June 29, 2017, 13:22. INDICATIONS : Short of breath. MEDICAL HISTORY : Stroke. Thyroid disease. TIA. Anticoagulant therapy. Hypertension. SURGICAL HISTORY : Hysterectomy. Eye surgery. Right rotator cuff repair. Cervical diskectomy ENCOUNTER: Initial ACUITY: 1 day PAIN SCORE: 0/10 LOCATION: Bilateral chest FINDINGS: A single view of the chest demonstrates the lungs to be symmetrically aerated without evidence of mas s, infiltrate or effusion except minimal consolidation left lung base. There are 4 intact sternal wir es. Previous cervical fusion. The cardiomediastinal contours are unremarkable. Osseous structures ar e intact. CONCLUSION: Minimal infiltrate left lung base. Right lung remains clear . Jabier Pringle MD on September 13, 2017 at 6:47 Board Certified Radiologist. This report was verified electronically.
--- NOTE | 2017-09-13 06:59 | PD ---
HPI Chief Complaint: Pain: Acute or Chronic Time Seen by Provider: 06:24 Travel History International Travel<30 days: No Contact w/Intl Traveler<30days: No Traveled to known affect area: No History of Present Illness HPI The patient is an 82 year old female who presents to the [facility] emergency department with a history of right lower extremity pain that she reports has made it impossible for her to ambulate at home. The patient reports that she normally gets around with a walker, however she has not been able to weight-bear on the right leg for the last 3 days. She also reports having a diminished appetite and did not eat anything yesterday. The patient reports that she was seen in the emergency department related to bilateral lower extremity pain recently. According to the record, the patient was seen by Dr. Enriquez on August 24, 2017. The patient at that time was complaining of bilateral lower extremity pain and swelling. The patient has a history of multiple prior DVTs affecting both legs. She denies having any known history of peripheral arterial disease. The patient at that time had reported that the bilateral lower extremity pain had been ongoing for several months. The patient reports that today she did awaken again with left leg pain. She reports that she has chronic edema of the legs with recurrent cellulitis. She denies having any worsening redness. She denies having any fevers or chills. The patient has skin darkening noted to the dorsal aspect of the left great toe. The patient denies any specific injury. The patient reports that she has been taking her Eliquis as prescribed. On review of systems, the patient denies having any recent fevers, cough, congestion, neck pain, chest pain, shortness of breath, abdominal pain, vomiting, diarrhea, urinary symptoms, or new neurologic symptoms. The patient reports having a diminished appetite over the last few days. [facility] Past Medical History Narrative Medical The patient's past medical history is significant for multiple prior DVT, history of cerebrovascular accident, history prediabetic, fibromyalgia, osteoarthritis, history of a right rotator cuff tear, sleep apnea, hypothyroid disorder. Hx Anticoagulant Therapy: Yes (ELIQUIS) Asthma: No Cancer: No Cardiovascular Problems: Yes COPD: No Cerebrovascular Accident: Yes Diabetes: Yes (PRE) Patient Takes Glucophage: No Diminished Hearing: No Endocrine: No Gastrointestinal Disorders: No Genitourinary: No Hepatitis: No Hiatal Hernia: No Hypertension: Yes Immune Disorder: Yes (fibromyalgia ) Medical other: Yes (NEUROPATHY) Musculoskeletal: Yes (fibromyalgia, arthritis, right rotator cuff repair ) Neurologic: Yes (hx of stroke ) Reproductive: No Respiratory: No Sleep Apnea: Yes Thyroid Disease: Yes ?: Not Menopausal: Yes : 4 Para: 4 Past Surgical History Narrative Surgical The patient's past surgical history is significant for tympanostomy tubes, appendectomy, bilateral eye surgery, hysterectomy, right knee surgery, left shoulder surgery, heart valve replacement. AICD: No Appendectomy: Yes Cardiac Surgery: No Ear Surgery: Yes (PE tubes x 10 ) Eye Surgery: Yes (bilateral chalazion sx ) Genitourinary Surgery: Yes (hysterectomy 1975) Hysterectomy: Yes Joint Replacement: Yes (R knee, L shoulder ) Oral Surgery: No Pacemaker: No Thoracic Surgery: No Other Surgery: Yes (heart valve replacement, hysterectomy, right knee L/R ROTATOR CUFF SX ) Social History Alcohol Use: No Tobacco Use: No Substance Use: No Allergies-Medications (Allergen,Severity, Reaction): Coded Allergies: clarithromycin (Unverified Allergy, Severe, nausea, vomiting, 09/13/17) acetaminophen (Unverified Allergy, Intermediate, hives, 09/13/17) celecoxib (Unverified Allergy, Intermediate, hives, 09/13/17) oxycodone (Unverified Allergy, Intermediate, hives, 09/13/17) rofecoxib (Unverified Allergy, Intermediate, hives, 09/13/17) Reported Meds & Prescriptions Reported Meds & Active Scripts Active Reported Xarelto (Rivaroxaban) 20 Mg Tab 20 Mg PO DAILY Protonix (Pantoprazole Sodium) 40 Mg Tab 40 Mg PO DAILY Requip (Ropinirole) 5 Mg Tab 5 Mg PO TID [place] (Hydrocodone-Acetaminophen) 10-325 Mg Tab 1 Tab PO Q6H PRN Magnesium 250 Mg Tab 250 Mg PO BID Potassium Chloride ER (Potassium Chloride) 10 Meq Tab 20 Meq PO BID Lipitor (Atorvastatin Calcium) 40 Mg Tab 40 Mg PO HS Metoprolol Tartrate 25 Mg Tab 25 Mg PO BID Zofran (Ondansetron HCl) 8 Mg Tab 8 Mg PO TID PRN Caitlin Aspirin EC Low Dose (Aspirin) 81 Mg Tabdr 81 Mg PO DAILY Aldactone (Spironolactone) 50 Mg Tab 50 Mg PO BID Flonase Nasal [place] (Fluticasone Nasal [place]) 50 Mcg/Act [place] 2 [place] EACH NARE DAILY Review of Systems Except as stated in HPI: all other systems reviewed are Neg General / Constitutional: No: Fever Eyes: No: Visual changes HENT: No: Headaches Cardiovascular: No: Chest Pain or Discomfort Respiratory: No: Shortness of Breath Gastrointestinal: No: Nausea, Vomiting, Diarrhea, Abdominal Pain Genitourinary: No: Dysuria Musculoskeletal: Positive: Myalgias, Arthralgias, Pain Skin: No Rash Neurologic: No: Weakness, Focal Abnormalities, Change in Mentation, Slurred Speech, Sensory Disturbance Psychiatric: No: Depression Endocrine: No: Polydipsia Hematologic/Lymphatic: No: Easy Bruising Physical Exam Narrative General: The patient is well-developed well-nourished female in no acute distress. Head and Neck exam: Head is normocephalic atraumatic. Eyes: EOMI, pupils are equal round and reactive to light. Nose: Midline septum with pink mucous membranes Mouth: Dentition unremarkable. Tacky mucus membranes. Dried brown substance coding the patient's mouth that appears to be older blood. Posterior oropharynx is not erythematous. No tonsillar hypertrophy. Uvula midline. Airway patent. Neck: No palpable lymphadenopathy. No nuchal rigidity. No thyromegaly. Cardiovascular: Irregularly irregular with occasional PVCs noted on telemetry without murmurs, gallops, or rubs. Lungs: Clear to auscultation bilaterally. No wheezes, rhonchi, or rales. Abdomen: Soft, without tenderness to palpation in all 4 quadrants of the abdomen. No guarding, rebound, or rigidity. Normal bowel sounds are audible. No tenderness on palpation of McBurney's point. Extremities: No clubbing or cyanosis. The patient has 1+ nonpitting edema bilateral lower extremities. The patient has darkening of the skin of the dorsum of the left great toe. The patient has no crepitus on palpation. The patient has 4 second capillary refill in bilateral lower extremities. Bilateral lower extremities are warm to touch. The patient has a palpable 1+ pulse in the left foot, no palpable pulse in the right foot, 2+ pulses in bilateral radial arteries. The patient had dopplerable pulses in bilateral feet. The patient reports pain with internal and external rotation of the right hip. Back: No costovertebral angle tenderness to palpation. Neurologic Exam: Grossly nonfocal. Skin Exam: No rash noted. Intact skin that is warm and dry. Data Data Last Documented VS Vital Signs Date Time Temp Pulse Resp B/P (MAP) Pulse Ox O2 Delivery O2 Flow Rate FiO2 09/13/17 09:16 17 96 Room Air 09/13/17 09:15 84 09/13/17 06:19 97.8 Orders Orders Electrocardiogram (09/13/17 06:25) Complete Blood Count With Diff (09/13/17 06:25) Basic Metabolic Panel (Bmp) (09/13/17 06:25) Prothrombin Time / Inr (Pt) (09/13/17 06:25) Act Partial Throm Time (Ptt) (09/13/17 06:25) Chest, Single Ap (09/13/17 06:25) Iv Access Insert/Monitor (09/13/17 06:25) Ecg Monitoring (09/13/17 06:25) Oximetry (09/13/17 06:25) Us Leg Venous Doppler Bilat (09/13/17 06:26) Cta Thor Abd Aorta W Iv C W3d (09/13/17 06:47) Troponin I (09/13/17 06:51) Lactic Acid (09/13/17 07:13) Creatine Kinase (Cpk) (09/13/17 07:13) CKMB (09/13/17 07:05) CKMB% (09/13/17 07:05) Iohexol 350 Inj (Omnipaque 350 Inj) (09/13/17 08:54) Place In Observation (09/13/17 ) Vital Signs (Adult) Q4H (09/13/17 09:46) Activity Oob With Assistance (09/13/17 09:46) Mold Closer Helper / Telemetry .CONTINUOUS (09/13/17 09:46) Diet Heart Healthy (09/13/17 Breakfast) Sodium Chloride 0.9% Flush (Ns Flush) (09/13/17 10:00) Sodium Chloride 0.9% Flush (Ns Flush) (09/13/17 21:00) Basic Metabolic Panel (Bmp) (09/14/17 06:00) Complete Blood Count With Diff (09/14/17 06:00) Pt Request For Service (09/13/17 09:46) Case Management Consult (09/13/17 09:46) Naloxone Inj (Narcan Inj) (09/13/17 10:00) Admit Order (Ed Use Only) (09/13/17 ) Vital Signs (Adult) Q4H (09/13/17 09:46) Activity Oob With Assistance (09/13/17 09:46) ^ Other Nursing Orders (09/13/17 09:47) Labs Laboratory Tests Test 09/13/17 06:51 09/13/17 07:05 White Blood Count 11.0 TH/MM3 Red Blood Count 4.10 MIL/MM3 Hemoglobin 11.8 GM/DL Hematocrit 36.5 % Mean Corpuscular Volume 89.0 FL Mean Corpuscular Hemoglobin 28.8 PG Mean Corpuscular Hemoglobin Concent 32.3 % Red Cell Distribution Width 14.7 % Platelet Count 314 TH/MM3 Mean Platelet Volume 7.4 FL Neutrophils (%) (Auto) 71.4 % Lymphocytes (%) (Auto) 18.9 % Monocytes (%) (Auto) 8.8 % Eosinophils (%) (Auto) 0.2 % Basophils (%) (Auto) 0.7 % Neutrophils # (Auto) 7.9 TH/MM3 Lymphocytes # (Auto) 2.1 TH/MM3 Monocytes # (Auto) 1.0 TH/MM3 Eosinophils # (Auto) 0.0 TH/MM3 Basophils # (Auto) 0.1 TH/MM3 CBC Comment DIFF FINAL Differential Comment Prothrombin Time 12.0 SEC Prothromb Time International Ratio 1.1 RATIO Activated Partial Thromboplast Time 27.8 SEC Blood Urea Nitrogen 20 MG/DL Creatinine 0.72 MG/DL Random Glucose 80 MG/DL Calcium Level 9.9 MG/DL Sodium Level 139 MEQ/L Potassium Level 3.6 MEQ/L Chloride Level 103 MEQ/L Carbon Dioxide Level 26.0 MEQ/L Anion Gap 10 MEQ/L Estimat Glomerular Filtration Rate 78 ML/MIN Troponin I LESS THAN 0.02 NG/ML Lactic Acid Level 1.2 mmol/L Total Creatine Kinase 303 U/L Creatine Kinase MB 7.2 NG/ML Creatine Kinase MB % 2.4 % MDM Medical Decision Making Medical Screen Exam Complete: Yes Emergency Medical Condition: Yes Medical Record Reviewed: Yes Differential Diagnosis Peripheral arterial disease with claudication, versus occult fracture, versus abdominal aortic aneurysm with thrombosis, versus embolic events, versus DVT Narrative Course During the course of the patients emergency department visit, the patients history, examination, and differential diagnosis were reviewed with the patient. The patient was placed on a cardiac care nurse with oximetry and frequent blood pressure monitoring. The patient had IV access obtained and blood work sent for analysis. The patients laboratory studies and imaging studies were pending at the conclusion of my shift. The patient's case was checked out to the oncoming emergency physician disposition the patient based on the conclusion of the patient's workup. As the patient is unable to ambulate, I suspect that the patient will be admitted to the hospital. Diagnosis Primary Impression: Inability to ambulate due to right hip Eugenia Brenner MD Sep 13, 2017 06:59
[2017-09-13 07:08] LABS: AUTOMATED NEUTROPHIL # 7.9 TH/MM3 (1.8-7.7); BASOPHIL # 0.1 TH/MM3 (0-0.2); BASOPHIL % 0.7 % (0.0-2.0); EOSINOPHIL % 0.2 % (0.0-4.0); HEMATOCRIT 36.5 % (35.0-46.0); HEMO FLAGS DIFF FINAL; LYMPH % 18.9 % (9.0-44.0); LYMPHOCYTE # 2.1 TH/MM3 (1.0-4.8); MEAN CORPUSCULAR HEMOGLOBIN 28.8 PG (27.0-34.0); MEAN CORPUSCULAR HGB CONC 32.3 % (32.0-36.0); MONO % 8.8 % (0.0-8.0); NEUT % 71.4 % (16.0-70.0); PLATELET COUNT 314 TH/MM3 (150-450); RED CELL DISTRIBUTION WIDTH 14.7 % (11.6-17.2)
--- NOTE | 2017-09-13 07:13 | PD ---
Physical Exam Date Seen by Provider: Sep 13, 2017 Time Seen by Provider: 07:11 Narrative The patient is a 82-year-old female was initially evaluated by the previous physician, Dr. Brenner. Please refer to the initial history, physical, diagnostic evaluation, and treatment modality plan. The patient was signed out at [address] of the aorta and ultrasound pending. The patient has been unable to bear weight for last several days on her right lower extremity. The patient was noted to have decreased pulses in the right lower extremity to palpation, however, bilateral pulses were obtainable on the feet with Doppler. Patient does have a history of previous multiple DVTs, is currently taking Eliquis. Data Data Last Documented VS Vital Signs Date Time Temp Pulse Resp B/P (MAP) Pulse Ox O2 Delivery O2 Flow Rate FiO2 09/13/17 09:16 17 96 Room Air 09/13/17 06:19 97.8 100 Orders Orders Electrocardiogram (09/13/17 06:25) Complete Blood Count With Diff (09/13/17 06:25) Basic Metabolic Panel (Bmp) (09/13/17 06:25) Prothrombin Time / Inr (Pt) (09/13/17 06:25) Act Partial Throm Time (Ptt) (09/13/17 06:25) Chest, Single Ap (09/13/17 06:25) Iv Access Insert/Monitor (09/13/17 06:25) Ecg Monitoring (09/13/17 06:25) Oximetry (09/13/17 06:25) Us Leg Venous Doppler Bilat (09/13/17 06:26) Cta Thor Abd Aorta W Iv C W3d (09/13/17 06:47) Troponin I (09/13/17 06:51) Lactic Acid (09/13/17 07:13) Creatine Kinase (Cpk) (09/13/17 07:13) CKMB (09/13/17 07:05) CKMB% (09/13/17 07:05) Iohexol 350 Inj (Omnipaque 350 Inj) (09/13/17 08:54) Place In Observation (09/13/17 ) Vital Signs (Adult) Q4H (09/13/17 09:46) Activity Oob With Assistance (09/13/17 09:46) Manager Diabetes / Telemetry .CONTINUOUS (09/13/17 09:46) Diet Heart Healthy (09/13/17 Breakfast) Sodium Chloride 0.9% Flush (Ns Flush) (09/13/17 10:00) Sodium Chloride 0.9% Flush (Ns Flush) (09/13/17 21:00) Basic Metabolic Panel (Bmp) (09/14/17 06:00) Complete Blood Count With Diff (09/14/17 06:00) Pt Request For Service (09/13/17 09:46) Case Management Consult (09/13/17 09:46) Naloxone Inj (Narcan Inj) (09/13/17 10:00) Admit Order (Ed Use Only) (09/13/17 ) Vital Signs (Adult) Q4H (09/13/17 09:46) Activity Oob With Assistance (09/13/17 09:46) Labs Laboratory Tests Test 09/13/17 06:51 09/13/17 07:05 White Blood Count 11.0 TH/MM3 Red Blood Count 4.10 MIL/MM3 Hemoglobin 11.8 GM/DL Hematocrit 36.5 % Mean Corpuscular Volume 89.0 FL Mean Corpuscular Hemoglobin 28.8 PG Mean Corpuscular Hemoglobin Concent 32.3 % Red Cell Distribution Width 14.7 % Platelet Count 314 TH/MM3 Mean Platelet Volume 7.4 FL Neutrophils (%) (Auto) 71.4 % Lymphocytes (%) (Auto) 18.9 % Monocytes (%) (Auto) 8.8 % Eosinophils (%) (Auto) 0.2 % Basophils (%) (Auto) 0.7 % Neutrophils # (Auto) 7.9 TH/MM3 Lymphocytes # (Auto) 2.1 TH/MM3 Monocytes # (Auto) 1.0 TH/MM3 Eosinophils # (Auto) 0.0 TH/MM3 Basophils # (Auto) 0.1 TH/MM3 CBC Comment DIFF FINAL Differential Comment Prothrombin Time 12.0 SEC Prothromb Time International Ratio 1.1 RATIO Activated Partial Thromboplast Time 27.8 SEC Blood Urea Nitrogen 20 MG/DL Creatinine 0.72 MG/DL Random Glucose 80 MG/DL Calcium Level 9.9 MG/DL Sodium Level 139 MEQ/L Potassium Level 3.6 MEQ/L Chloride Level 103 MEQ/L Carbon Dioxide Level 26.0 MEQ/L Anion Gap 10 MEQ/L Estimat Glomerular Filtration Rate 78 ML/MIN Troponin I LESS THAN 0.02 NG/ML Lactic Acid Level 1.2 mmol/L Total Creatine Kinase 303 U/L Creatine Kinase MB 7.2 NG/ML Creatine Kinase MB % 2.4 % [facility] Medical Record Reviewed: Yes Supervised Visit with IDA: No Interpretation(s) Last Impressions Lower Extremity Ultrasound 09/13/17625 Signed Impressions: Service Date/Time: Wednesday, September 13, 2017 07:26 - CONCLUSION: Normal examination. Jeremy Andino Jr., MD Chest X-Ray 09/13/17624 Signed Impressions: Service Date/Time: Wednesday, September 13, 2017 06:29 - CONCLUSION: Minimal infiltrate left lung base. Right lung remains clear . Jabier Pringle MD CTA of the thoracic abdominal aorta reveals the thoracic and abdominal aorta are normal in caliber. Ears no evidence of dissection. The iliac vessels are widely patent. Incidental 3.6 simple cyst arising from the left kidney. Degenerative changes in the thoracic spine. Postsurgical changes of the lumbar spine. Laboratory Tests Test 09/13/17 06:51 09/13/17 07:05 White Blood Count 11.0 TH/MM3 Red Blood Count 4.10 MIL/MM3 Hemoglobin 11.8 GM/DL Hematocrit 36.5 % Mean Corpuscular Volume 89.0 FL Mean Corpuscular Hemoglobin 28.8 PG Mean Corpuscular Hemoglobin Concent 32.3 % Red Cell Distribution Width 14.7 % Platelet Count 314 TH/MM3 Mean Platelet Volume 7.4 FL Neutrophils (%) (Auto) 71.4 % Lymphocytes (%) (Auto) 18.9 % Monocytes (%) (Auto) 8.8 % Eosinophils (%) (Auto) 0.2 % Basophils (%) (Auto) 0.7 % Neutrophils # (Auto) 7.9 TH/MM3 Lymphocytes # (Auto) 2.1 TH/MM3 Monocytes # (Auto) 1.0 TH/MM3 Eosinophils # (Auto) 0.0 TH/MM3 Basophils # (Auto) 0.1 TH/MM3 CBC Comment DIFF FINAL Differential Comment Prothrombin Time 12.0 SEC Prothromb Time International Ratio 1.1 RATIO Activated Partial Thromboplast Time 27.8 SEC Blood Urea Nitrogen 20 MG/DL Creatinine 0.72 MG/DL Random Glucose 80 MG/DL Calcium Level 9.9 MG/DL Sodium Level 139 MEQ/L Potassium Level 3.6 MEQ/L Chloride Level 103 MEQ/L Carbon Dioxide Level 26.0 MEQ/L Anion Gap 10 MEQ/L Estimat Glomerular Filtration Rate 78 ML/MIN Troponin I LESS THAN 0.02 NG/ML Lactic Acid Level 1.2 mmol/L Total Creatine Kinase 303 U/L Creatine Kinase MB 7.2 NG/ML Creatine Kinase MB % 2.4 % Differential Diagnosis Differential diagnosis includes fracture, DVT, rhabdomyolysis, PVD, aortic occlusion, iliac occlusion, inability to bear weight. Narrative Course Patient was initially evaluated by the previous physician, Dr. Brenner. Please refer to the initial history, physical, diagnostic evaluation, and treatment modality plan. The patient was signed out at [address] of the aorta and ultrasound of the right lower extremity pending. Ultrasound was unremarkable. CTA of the thoracic abdominal aorta that was ordered by Dr. Brenner was unremarkable. Labs are unremarkable. The patient was reevaluated at 9:23 AM. The patient was reevaluated, over the last 3 days she's been unable to ambulate with the use of a walker. The son, who the patient lives with, states the patient has fallen several times any has difficulty getting the patient upright. The patient has had difficulty making it to the bathroom to shower and 2 other activities of daily living secondary to the right leg pain and inability to ambulate. Therefore, the patient will be 23 hour observation, will need physical therapy evaluation and may benefit from shelter facility placement. The patient and son are comfortable with this plan of care. Physician Communication Physician Communication The on-call medical service was paged for 23 hour observation. I discussed the patient with Dr. Lao who agrees with 23 hour observation. Diagnosis Primary Impression: Inability to ambulate due to right hip Admitting Information Admitting Physician Requests: Observation Condition: Stable Tavon Hernandez MD Sep 13, 2017 07:13
[2017-09-13 07:21] LABS: APTT (PATIENT) 27.8 SEC (24.3-30.1); INTERNATIONAL NORMALIZED RATIO 1.1 RATIO
[2017-09-13 07:23] LABS: ANION GAP 10 MEQ/L (5-15); BLOOD UREA NITROGEN 20 MG/DL (7-18); CHLORIDE 103 MEQ/L (98-107); GLOMERULAR FILTRATION RATE 78 ML/MIN (>89); POTASSIUM 3.6 MEQ/L (3.5-5.1); SODIUM (NA) 139 MEQ/L (136-145)
--- NOTE | 2017-09-13 07:55 | RADRPT ---
EXAM DATE/TIME: 09/13/2017 07:26 [facility] COMPARISON: US LEG BILATERAL VENOUS DOPPLER, May 11, 2017, 9:02. INDICATIONS : Bilateral leg swelling. MEDICAL HISTORY : Hypertension. Arthritis. Thyroid disease. CVA. Slee apnea. Diabetes. Fibromyalgia. Neuropathy. Antic oagulant therapy, Eliquis. SURGICAL HISTORY : Appendectomy.Hysterectomy. Bilateral chalazion surgery. PE tubes x10. Right rotator cuff repair. Ante rior cervical discectomy. Spinal fusion C4-5, C5-6, C6-7. Right knee replacement. Left shoulder repla cement. Heart valve replacement. Blood tranfusions. ENCOUNTER: Initial ACUITY: 1 day PAIN SCORE: 8/10 LOCATION: Bilateral leg. TECHNIQUE: Venous ultrasound of the left and right leg was performed from the inguinal ligament to the proximal calf. Real-time, color Doppler and spectral tracing, compression and augmentation techniques were us ed. FINDINGS: RIGHT LEG: There is normal compressibility of the deep venous system from the inguinal region to the proximal ca lf. No echogenic clot is seen in the lumen of the common femoral, femoral, popliteal, and posterior tibial veins. There is a normal response of the venous system to proximal and distal augmentation an d respiration. LEFT LEG: There is normal compressibility of the deep venous system from the inguinal region to the proximal ca lf. No echogenic clot is seen in the lumen of the common femoral, femoral, popliteal, and posterior tibial veins. There is a normal response of the venous system to proximal and distal augmentation an d respiration. CONCLUSION: Normal examination. Jeremy Andino Jr., MD on September 13, 2017 at 7:51 Board Certified Radiologist. This report was verified electronically.
[2017-09-13 08:26] LABS: CKMB 7.2 NG/ML (0.5-3.6)
[2017-09-13] MEDS ORDERED: IOHEXOL 350 MG/ML 10 ML VIAL (for RAD DIAG) IVCONTRAST ONE (08:54)
--- NOTE | 2017-09-13 09:22 | RADRPT ---
EXAM DATE/TIME: 09/13/2017 08:46 [facility] COMPARISON: CT FACIAL BONES W/O CONTRAST, June 29, 2017, 12:31. INDICATIONS : Bilateral leg pain IV CONTRAST: 96 cc Omnipaque 350 (iohexol) IV RADIATION DOSE: 20.49 CTDIvol (mGy) MEDICAL HISTORY : Hypertension. Cerebrovascular disease. SURGICAL HISTORY : None. ENCOUNTER: Initial ACUITY: 1 day PAIN SCALE: 9/10 LOCATION: Bilateral legs TECHNIQUE: Volumetric scanning was performed using a multi-row detector CT scanner. The data was post processed with a variety of visualization algorithms including full volume maximum intensity projection, multi -planar sliding thin slab reformation, curved planar reformation, and surface rendering techniques. Using automated exposure control and adjustment of the mA and/or kV according to patient size, radiat ion dose was kept as low as reasonably achievable to obtain optimal diagnostic quality images. DICOM format image data is available electronically for review and comparison. FINDINGS: Thoracic aorta: The patient is post aortic valvular replacement. The aortic root measures 2.1 cm in maximum dimension . This is normal in size. The tubular portion of the ascending aorta measures 3 cm. The arch is monica l in caliber. Of note, the left vertebral does originate directly from the arch it is diminutive in s ize. The descending thoracic aorta is normal in caliber throughout its course measuring approximately 2.1 cm. There is minimal atherosclerotic plaquing. There is no evidence of dissection. Abdominal aorta: The celiac, SMA and renal arteries are widely patent. The infrarenal aorta demonstrates minimal ather osclerotic plaquing and is widely patent throughout its course. Maximum dimension of the infrarenal a bebeto is approximately 1.6 cm. The KATHY is patent. Pelvis: The common iliac, internal iliac and external iliac circulation is widely patent bilaterally. CT source data: There is visualization of the central pulmonary arteries. No pulmonary embolus is identified. The hea rt is normal in size. There is no pericardial effusion. No significant hilar or mediastinal adenopath y is present. The pulmonary parenchyma demonstrates a minimal atelectatic changes at the left base bu t is otherwise clear. The patient is post median sternotomy. The solid organs of the abdomen demonstr ate a 3.6 cm cyst arising from the left kidney. The solid organs are otherwise intact. There is no re troperitoneal adenopathy. No free air or free fluid is seen. The osseous structures demonstrate scatt ered degenerative changes throughout the thoracic spine. There are postsurgical changes within the seb mbar spine. CONCLUSION: 1. The thoracic and abdominal aorta are normal in caliber. There is no evidence of dissection. 2. The iliac vessels are widely patent. 3. Incidental 3.6 cm simple cyst arising from the left kidney. 4. Degenerative changes in the thoracic spine. 5. Postsurgical changes in the lumbar spine. Ventura Sheppard MD on September 13, 2017 at 9:15 Board Certified Radiologist. This report was verified electronically.
[2017-09-13] MEDS ORDERED: IOHEXOL 300 MG/ML 50 ML BTL (for RAD DIAG) OTHER ONE (09:49)
[2017-09-13] MEDS ORDERED: SODIUM CHLORIDE 0.9% FLUSH 10 ML FLUSH IV FLUSH PRN (10:00)
[2017-09-13] MEDS ORDERED: NALOXONE HCL 0.4 MG/ML AMP IV PUSH PRN (10:00)
--- NOTE | 2017-09-13 10:37 | HHI.HP ---
[facility] Cha Bee D.O. Admission Diagnosis right leg pain, inability to ambulate Diagnoses: Travel History International Travel<30 Days: No Contact w/Intl Traveler <30 Da: No Traveled to Known Affected Are: No History of Present Illness History from patient, ER physician communication, and review of medical records. Patient's anesthesiologist attending note from clinic visit 2 days ago so severe reviewed. 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 She had just wasn't herself out of the recliner chair and crawl to get things done at home. At around Wednesday morning, the son came to visit her and found her on the floor. She denies falling down or hitting her head. But reports that she has been sliding herself down from the recliner to go to bathroom. By 3 AM on Wednesday today, son was called because of life alert had called him. They are unsure whether she pressed the life alert or it accidentally was pressed as she was crawling. When the ambulance came, patient was conversing with the ambulance personnel through the window. She stated she was on naked and wanted to go to shower before she left them in to see her. Patient is noted to have dried blood all around her tongue and teeth. She reports this is from dehydration. Denies any seizure activity or syncopal episodes. On review of medical records, patient did have prior history of syncope in May 2017. She had an appointment with her anesthesiologist attending on September 10, 2017. Son at the bedside stated that a few months ago, patient was told not to drive by her anesthesiologist attending for 2 weeks or so. But he did clear her now to be able to drive. The cardiology notes from September 10, 2017 reviewed. Apart from the above, patient denies any recent fevers/shortness of breath/ nausea/vomiting/diarrhea/urinary burning or pain on urination. She denies any hematemesis/hematochezia/melena/hematuria. Review of Systems Except as stated in HPI: all other systems reviewed are Neg Past Family Social History Past Medical History Per patient and EMR: Severe aortic stenosis status post bovine aortic valve replacement in December 2016. Left heart catheter and SPECT perfusion scans previously done did not reveal any evidence of coronary artery disease. Right heart failure. Currently being investigated for possible sleep apnea. Hypertension Chronic peripheral edema Chronic dyspnea on exertion Hyperlipidemia Obesity TIA Chronic anticoagulation on Xarelto Fibromyalgia Past Surgical History aortic valve replacement dec 2016 knee replacement right left shoulder neck sx - with nuts and bolts back sx- with nuts and bolts Hysterectomy Reported Medications Patient's medications as was brought in by the son. Fluticasone nasal spray 50 g 2 sprays in each nostril once a day. Aldactone 50 mg 1 tablet by mouth twice a day. Aspirin 81 mg by mouth daily. Hydrocodone/acetaminophen 10/325 every 6 hours as needed. Riza triptan 8 mg by mouth 3 times a day as needed. Reason triptan 10 mg 1 tablet by mouth at the onset of migraine. She may repeat 1 times in 2 hours. By her anesthesiologist attending notes, patient was also on Bumex and this was increased to 2 mg daily on September 10, 2017. Allergies: Coded Allergies: clarithromycin (Unverified Allergy, Severe, nausea, vomiting, 09/13/17) acetaminophen (Unverified Allergy, Intermediate, hives, 09/13/17) celecoxib (Unverified Allergy, Intermediate, hives, 09/13/17) oxycodone (Unverified Allergy, Intermediate, hives, 09/13/17) rofecoxib (Unverified Allergy, Intermediate, hives, 09/13/17) Family History sister- at 55 yo or so, cancer- mixed mullerian? dad- cva at 47 yo Social History no etoh, no smoking , no drugs lives alone, still drives - drove to the doctors office by herself on , and wednesday- 3 days ago Physical Exam Vital Signs Vital Signs Date Time Temp Pulse Resp B/P (MAP) Pulse Ox O2 Delivery O2 Flow Rate FiO2 09/13/17 09:16 17 96 Room Air 09/13/17 09:15 84 15 125/60 (81) 97 Room Air 09/13/17 06:19 97.8 100 18 140/67 (91) 98 Room Air 09/13/17 06:17 18 Physical Exam GENERAL: This is a well-nourished, well-developed patient, in no apparent distress. SKIN: Bilateral lower extremity chronic venous stasis. Mild overlying erythema with minimal warmth. HEAD: Atraumatic. Normocephalic. No temporal or scalp tenderness. EYES: . No scleral icterus. No injection or drainage. ENT: Nose without bleeding, purulent drainage or septal hematoma. Airway patent. NECK: Trachea midline. No JVD CARDIOVASCULAR: Regular rate and rhythm without murmurs, gallops, or rubs. RESPIRATORY: Clear to auscultation. Breath sounds equal bilaterally. No wheezes , rales, or rhonchi. GASTROINTESTINAL: Abdomen soft, non-tender, nondistended. . No guarding. MUSCULOSKELETAL: Extremities without clubbing, cyanosis. Bilateral lower extremity pitting edema 2+ up to mid espinoza. NEUROLOGICAL: Awake and alert. RLE inability to move due to pain. Normal speech Laboratory Laboratory Tests Test 09/13/17 06:51 09/13/17 07:05 White Blood Count 11.0 Red Blood Count 4.10 Hemoglobin 11.8 Hematocrit 36.5 Mean Corpuscular Volume 89.0 Mean Corpuscular Hemoglobin 28.8 Mean Corpuscular Hemoglobin Concent 32.3 Red Cell Distribution Width 14.7 Platelet Count 314 Mean Platelet Volume 7.4 Neutrophils (%) (Auto) 71.4 Lymphocytes (%) (Auto) 18.9 Monocytes (%) (Auto) 8.8 Eosinophils (%) (Auto) 0.2 Basophils (%) (Auto) 0.7 Neutrophils # (Auto) 7.9 Lymphocytes # (Auto) 2.1 Monocytes # (Auto) 1.0 Eosinophils # (Auto) 0.0 Basophils # (Auto) 0.1 CBC Comment DIFF FINAL Differential Comment Prothrombin Time 12.0 Prothromb Time International Ratio 1.1 Activated Partial Thromboplast Time 27.8 Blood Urea Nitrogen 20 Creatinine 0.72 Random Glucose 80 Calcium Level 9.9 Sodium Level 139 Potassium Level 3.6 Chloride Level 103 Carbon Dioxide Level 26.0 Anion Gap 10 Estimat Glomerular Filtration Rate 78 Troponin I LESS THAN 0.02 Lactic Acid Level 1.2 Total Creatine Kinase 303 Creatine Kinase MB 7.2 Creatine Kinase MB % 2.4 Result Diagram: 09/13/1751 09/13/17650 Imaging Last 48 hours Impressions Aorta CTA 09/13/17646 Signed Impressions: Service Date/Time: Wednesday, September 13, 2017 08:46 - CONCLUSION: 1. The thoracic and abdominal aorta are normal in caliber. There is no evidence of dissection. 2. The iliac vessels are widely patent. 3. Incidental 3.6 cm simple cyst arising from the left kidney. 4. Degenerative changes in the thoracic spine. 5. Postsurgical changes in the lumbar spine. Ventura Sheppard MD Lower Extremity Ultrasound 09/13/17625 Signed Impressions: Service Date/Time: Wednesday, September 13, 2017 07:26 - CONCLUSION: Normal examination. Jeremy Andino Jr., MD Chest X-Ray 09/13/17624 Signed Impressions: Service Date/Time: Wednesday, September 13, 2017 06:29 - CONCLUSION: Minimal infiltrate left lung base. Right lung remains clear . MD Chad Slater VTE Risk Assessment Caprini VTE Risk Assessment: Mod/High Risk (score >= 2) Caprini Risk Assessment Model Point Value = 1 Point Value = 2 Point Value = 3 Point Value = 5 Age 41-60 Minor surgery BMI > 25 kg/m2 Swollen legs Varicose veins or History of unexplained or recurrent spontaneous Oral contraceptives or hormone replacement Sepsis (< 1 month) Serious lung disease, including pneumonia (< 1 month) Abnormal pulmonary function Acute myocardial infarction Congestive heart failure (< 1 month) History of inflammatory bowel disease Medical patient at bed rest Age 61-74 Arthroscopic surgery Major open surgery (> 45 min) Laparoscopic surgery (> 45 min) Malignancy Confined to bed (> 72 hours) Immobilizing plaster cast Central venous access Age >= 75 History of VTE Family history of VTE Factor V Leiden Prothrombin [id number] Lupus anticoagulant Anticardiolipin antibodies Elevated serum homocysteine Heparin-induced thrombocytopenia Other congenital or acquired thrombophilia Stroke (< 1 month) Elective arthroplasty Hip, pelvis, or leg fracture Acute spinal cord injury (< 1 month) Prophylaxis Regimen Total Risk Factor Score Risk Level Prophylaxis Regimen 0-1 Low Early ambulation 2 Moderate Order ONE of the following: *Sequential Compression Device (SCD) *Heparin 5000 units SQ BID 3-4 Higher Order ONE of the following medications: *Heparin 5000 units SQ TID *Enoxaparin/Lovenox 40 mg SQ daily (WT < 150 kg, CrCl > 30 mL/min) *Enoxaparin/Lovenox 30 mg SQ daily (WT < 150 kg, CrCl > 10-29 mL/min) *Enoxaparin/Lovenox 30 mg SQ BID (WT < 150 kg, CrCl > 30 mL/min) AND/OR *Sequential Compression Device (SCD) 5 or more Highest Order ONE of the following medications: *Heparin 5000 units SQ TID (Preferred with Epidurals) *Enoxaparin/Lovenox 40 mg SQ daily (WT < 150 kg, CrCl > 30 mL/min) *Enoxaparin/Lovenox 30 mg SQ daily (WT < 150 kg, CrCl > 10-29 mL/min) *Enoxaparin/Lovenox 30 mg SQ BID (WT < 150 kg, CrCl > 30 mL/min) AND *Sequential Compression Device (SCD) Assessment and Plan Assessment and Plan Impression: Inability to ambulate Severe right lower extremity pain. Likely secondary to osteoarthritis. This pain was masked previously by her chronic pain meds and injections that she was receiving for her back and neck pains. Clinical evidence of dehydration/poor oral intake in the past 2 days Severe aortic stenosis status post bovine aortic valve replacement in December 2016. Left heart catheter and SPECT perfusion scans previously done did not reveal any evidence of coronary artery disease. Right heart failure. Currently being investigated for possible sleep apnea. Hypertension Chronic peripheral edema Chronic dyspnea on exertion Hyperlipidemia Obesity TIA Chronic anticoagulation on Xarelto Fibromyalgia Plan: Physical therapy consult. Would consult orthopedics surgery to see if patient would be a candidate for steroid shots, vs need for hip replacement pain control with hydrocodone 10/325 by mouth every 4 hours when necessary for pain greater than 5. Morphine 2 g IV every 3 hours when necessary for breakthrough pain. At this point, I would hold Bumex due to patient's clinical signs and symptoms of dehydration. Would resume Bumex in the next 24 hours or so. Hydrate patient orally since patient has history of right heart failure and since her anesthesiologist attending just increase her diuretics 2 days ago. We'll follow CPK in the next 24-48 hours because of this dehydration. Resume rest of her home meds. Son brought a list of her medications. This would need to be updated on EMR. Informed patient's nurse. We'll resume once EMR is obtained. DVT prophylaxis with Xarelto Discussed Condition With patient, ER , nursing staff Omi Lao MD Sep 13, 2017 10:37
[2017-09-13] MEDS: ACETAMINOPHEN/HYDROcodone 325 MG/10 MG TAB PO PRN ×2 (12:30→17:20)
[2017-09-13] MEDS ORDERED: PENICILLIN V POTASSIUM 250 MG TAB PO ONE (13:00)
[2017-09-13] MEDS ORDERED: ONDANSETRON ODT 4 MG TAB PO PRN (13:00)
--- NOTE | 2017-09-13 15:15 | RADRPT ---
EXAM DATE/TIME: 09/13/2017 14:58 [facility] COMPARISON: No previous studies available for comparison. INDICATIONS : Right side pelvic pain, denies injury MEDICAL HISTORY : Hypertension. Cerebrovascular disease SURGICAL HISTORY : Total knee replacement, right. ENCOUNTER: Initial ACUITY: 1 day PAIN SCORE: 9/10 LOCATION: Right Pelvis FINDINGS: There are degenerative changes about both hips. Glands and stomach. Fracture is not appreciated. C ontrast is present in the bladder. CONCLUSION: Degenerative changes about both hips. Jaden Sheppard MD FACR on September 13, 2017 at 15:12 Board Certified Radiologist. This report was verified electronically.
--- NOTE | 2017-09-13 15:15 | RADRPT ---
EXAM DATE/TIME: 09/13/2017 14:59 [facility] COMPARISON: No previous studies available for comparison. INDICATIONS : Right proximal femur pain, deines injury MEDICAL HISTORY : Hypertension. Cerebrovascular disease SURGICAL HISTORY : Total knee replacement, right. ENCOUNTER: Initial ACUITY: 1 day PAIN SCORE: 9/10 LOCATION: Right Femur FINDINGS: Two view examination of the right femur demonstrates no evidence of fracture or dislocation. Bony mi neralization is normal. Total knee arthroplasty is evident. The soft tissue structures are intact. CONCLUSION: Negative for fracture.. Jaden Sheppard MD FACR on September 13, 2017 at 15:13 Board Certified Radiologist. This report was verified electronically.
[2017-09-13] MEDS: MAGNESIUM OXIDE 400 MG TAB PO SCH (17:20)
[2017-09-13] MEDS: MORPHINE SULFATE 2 MG/ML INJ IV PUSH PRN (18:16)
--- NOTE | 2017-09-13 19:31 | EKG ---
Date Performed: 09/13/2017 Time Performed: 06:20:39 PTAGE: 82 years EKG: SINUS TACHYCARDIA WITH OCCASIONAL VENTRICULAR PREMATURE COMPLEXES POSSIBLE LEFT ATRIAL ENLA RGEMENT MARKED LEFT AXIS DEVIATION RIGHT BUNDLE BRANCH BLOCK ABNORMAL ECG Since PREVIOUS TRACING , no significant change noted PREVIOUS TRACING 06/29/2017 11.37.11 DOCTOR: Shana Corona Interpretating Date/Time 09/16/2017 08:34:39
--- NOTE | 2017-09-13 19:31 | EKG ---
Date Performed: 09/13/2017 Time Performed: 07:13:50 PTAGE: 82 years EKG: Sinus rhythm POSSIBLE LEFT ATRIAL ENLARGEMENT MARKED LEFT AXIS DEVIATION RIGHT BUNDLE BRANCH BLOCK ABNORMAL ECG S abdoulaye PREVIOUS TRACING , no significant change noted PREVIOUS TRACIN09/13/2017 06.20 DOCTOR: Shana Corona Interpretating Date/Time 09/13/2017 19:30:25
[2017-09-13] MEDS: SODIUM CHLORIDE 0.9% FLUSH 10 ML FLUSH IV FLUSH SCH (22:15)
[2017-09-13] MEDS: ATORVASTATIN 40 MG TAB PO SCH (22:16)
[2017-09-13] MEDS: PENICILLIN V POTASSIUM 500 MG TAB PO SCH (22:16)
[2017-09-13] MEDS: METOPROLOL TARTRATE 25 MG TAB PO SCH (22:16)
[2017-09-14] MEDS: ACETAMINOPHEN/HYDROcodone 325 MG/10 MG TAB PO PRN ×2 (03:13→09:53)
[2017-09-14 03:58] VITALS: BP 118/56; PULSE 69; RESP 18; TEMP 98.7; O2SAT 97
[2017-09-14 07:30] VITALS: BP 117/56; PULSE 75; RESP 20; TEMP 98.2; O2SAT 98
[2017-09-14] MEDS ORDERED: SENNOSIDES 8.6 MG TAB PO PRN (08:30)
[2017-09-14] MEDS ORDERED: LACTULOSE SYRUP 20 GM/30 ML CUP PO PRN (09:00)
[2017-09-14] MEDS ORDERED: MAGNESIUM HYDROXIDE SUSP 30 ML CUP PO PRN (09:00)
[2017-09-14] MEDS ORDERED: BISACODYL 10 MG SUPP RECTAL PRN (09:00)
--- NOTE | 2017-09-14 09:42 | PD.CONS ---
HPI Service Orthopedic Surgeons Consult Requested By Reason for Consult Right hip pain Primary Care Physician Cha Bee D.O. Admission Diagnosis right leg pain, inability to ambulate Diagnoses: Chief Complaint: Right hip pain History of Present Illness Patient is an 82-year-old female with multiple medical problems who presents to the ER with complaints of severe right hip pain and unable to ambulate without any antecedent trauma. However, patient was found on the floor after her life alert when off. Patient states for the last 4 weeks she's had severe right hip pain which has continued to progress. Patient states starting on Wednesday she was unable to bear weight on the right leg even with her walker. She reports most of the pain is in her right groin although she does have pain in other locations as well. Patient denies low back pain more than baseline and states she has minimal buttock pain. She does state the right groin pain does travel down the medial aspect of her leg and occasionally past her knee but her most severe pain is in her groin. Patient denies any numbness or tingling more than baseline. Patient states she does feel weak on the right side but attributes that to the pain. Review of Systems Constitutional: DENIES: Fever Endocrine: DENIES: Polyuria Eyes: DENIES: Blurred vision Ears, nose, mouth, throat: DENIES: Throat pain Respiratory: DENIES: Cough Cardiovascular: DENIES: Chest pain Gastrointestinal: DENIES: Abdominal pain Genitourinary: DENIES: Urinary incontinence Musculoskeletal: COMPLAINS OF: Joint pain Integumentary: DENIES: Rash Hematologic/lymphatic: COMPLAINS OF: Bruising Immunologic/allergic: DENIES: Eczema Neurologic: DENIES: Paresthesias Psychiatric: DENIES: Anxiety Past Family Social History Past Medical History Per patient and EMR: Severe aortic stenosis status post bovine aortic valve replacement in December 2016. Left heart catheter and SPECT perfusion scans previously done did not reveal any evidence of coronary artery disease. Right heart failure. Currently being investigated for possible sleep apnea. Hypertension Chronic peripheral edema Chronic dyspnea on exertion Hyperlipidemia Obesity TIA Chronic anticoagulation on Xarelto Fibromyalgia Multiple DVTs Past Surgical History aortic valve replacement dec 2016 knee replacement right left shoulder neck sx - with nuts and bolts back sx- with nuts and bolts Hysterectomy Reported Medications Please see his chart for full medication list. 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 Allergies: Coded Allergies: clarithromycin (Unverified Allergy, Severe, nausea, vomiting, 09/13/17) acetaminophen (Unverified Allergy, Intermediate, hives, 09/13/17) celecoxib (Unverified Allergy, Intermediate, hives, 09/13/17) oxycodone (Unverified Allergy, Intermediate, hives, 09/13/17) rofecoxib (Unverified Allergy, Intermediate, hives, 09/13/17) Active Ordered Medications Current Medications Medications (Trade) Dose Ordered Sig/Cassie Route Start Time Stop Time Status Last Admin (NS Flush) 2 ml UNSCH PRN IV FLUSH 09/13/17 10:00 (NS Flush) 2 ml BID IV FLUSH 09/13/17 21:00 09/13/17 22:15 (Narcan Inj) 0.4 mg UNSCH PRN IV PUSH 09/13/17 10:00 (Morphine Inj) 2 mg Q3H PRN IV PUSH 09/13/17 10:30 09/13/17 18:16 ([place] 10-325 Mg) 1 tab Q4H PRN PO 09/13/17 10:30 09/14/17 03:13 (Ecotrin Ec) 81 mg DAILY PO 09/14/17 09:00 (Lipitor) 40 mg HS PO 09/13/17 21:00 09/13/17 22:16 (Lopressor) 25 mg BID PO 09/13/17 21:00 09/13/17 22:16 (Xarelto) 20 mg DAILY PO 09/14/17 09:00 (Mag-Ox) 400 mg BID@1100,1600 PO 09/13/17 16:00 09/13/17 17:20 (Zofran Odt) 8 mg TID PRN PO 09/13/17 13:00 (Requip) 5 mg TID PO 09/13/17 13:00 09/13/17 18:15 (Veetids) 500 mg BID PO 09/13/17 21:00 09/13/17 22:16 (Jyoti-Colace) 1 tab BID PO 09/14/17 09:00 (Milk Of Magnesia Liq) 30 ml Q12H PRN PO 09/14/17 09:00 (Senokot) 17.2 mg Q12H PRN PO 09/14/17 08:30 (Dulcolax Supp) 10 mg DAILY PRN RECTAL 09/14/17 09:00 (Lactulose Liq) 30 ml DAILY PRN PO 09/14/17 09:00 Reported Meds & Active Scripts Active Reported Xarelto (Rivaroxaban) 20 Mg Tab 20 Mg PO DAILY Protonix (Pantoprazole Sodium) 40 Mg Tab 40 Mg PO DAILY Requip (Ropinirole) 5 Mg Tab 5 Mg PO TID [place] (Hydrocodone-Acetaminophen) 10-325 Mg Tab 1 Tab PO Q6H PRN Magnesium 250 Mg Tab 250 Mg PO BID Potassium Chloride ER (Potassium Chloride) 10 Meq Tab 20 Meq PO BID Lipitor (Atorvastatin Calcium) 40 Mg Tab 40 Mg PO HS Metoprolol Tartrate 25 Mg Tab 25 Mg PO BID Zofran (Ondansetron HCl) 8 Mg Tab 8 Mg PO TID PRN Caitlin Aspirin EC Low Dose (Aspirin) 81 Mg Tabdr 81 Mg PO DAILY Aldactone (Spironolactone) 50 Mg Tab 50 Mg PO BID Flonase Nasal [place] (Fluticasone Nasal [place]) 50 Mcg/Act [place] 2 [place] EACH NARE DAILY Family History sister- at 55 yo or so, cancer- mixed mullerian? dad- cva at 47 yo Social History no etoh, no smoking , no drugs lives alone, still drives - drove to the doctors office by herself on , and wednesday- 3 days ago Physical Exam Vital Signs Vital Signs Date Time Temp Pulse Resp B/P (MAP) Pulse Ox O2 Delivery O2 Flow Rate FiO2 09/14/17 07:30 98.2 75 20 117/56 (76) 98 09/14/17 04:13 18 09/14/17 03:58 98.7 69 18 118/56 (76) 97 09/13/17 23:36 98.7 74 18 122/68 (86) 98 09/13/17 20:14 98.1 89 18 131/78 (95) 98 09/13/17 18:44 18 09/13/17 15:29 95.9 80 18 141/63 (89) 94 09/13/17 12:38 98.1 89 18 131/59 (83) 99 09/13/17 11:40 Physical Exam Awake, alert, no acute distress Normocephalic Pupils equal No JVD Nonlabored respirations Regular rate Soft nontender abdomen Right lower extremity: Mild to moderate pain with logroll. Allows roughly 90 of flexion of the hip but reports groin pain with motion. 5 out of 5 strength in ankle dorsiflexion, plantar flexion, EHL and FHL. Unable to assess hip and knee strength due to pain in groin. Reports sensation intact. Brisk cap refill Bilateral upper extremity and left lower Marsha: No tenderness to palpation or visible deformities. Full active range of motion and strength without significant discomfort. Neurovascularly intact distally sensation intact. Brisk cap refill throughout. No rash Normal affect Result Diagram: 09/13/17 0651 09/13/17 0651 Imaging Last 48 hours Impressions Aorta CTA 09/13/17 0647 Signed Impressions: Service Date/Time: Wednesday, September 13, 2017 08:46 - CONCLUSION: 1. The thoracic and abdominal aorta are normal in caliber. There is no evidence of dissection. 2. The iliac vessels are widely patent. 3. Incidental 3.6 cm simple cyst arising from the left kidney. 4. Degenerative changes in the thoracic spine. 5. Postsurgical changes in the lumbar spine. Ventura Sheppard MD Lower Extremity Ultrasound 09/13/17 0626 Signed Impressions: Service Date/Time: Wednesday, September 13, 2017 07:26 - CONCLUSION: Normal examination. Jeremy Andino Jr., MD Chest X-Ray 09/13/17 0625 Signed Impressions: Service Date/Time: Wednesday, September 13, 2017 06:29 - CONCLUSION: Minimal infiltrate left lung base. Right lung remains clear . Jabier Pringle MD Pelvis X-Ray 09/13/17 0000 Signed Impressions: Service Date/Time: Wednesday, September 13, 2017 14:58 - CONCLUSION: Degenerative changes about both hips. Jaden Sheppard MD FACR Femur X-Ray 09/13/17 0000 Signed Impressions: Service Date/Time: Wednesday, September 13, 2017 14:59 - CONCLUSION: Negative for fracture.. Jaden Sheppard MD FACR Assessment & Plan Assessment and Plan 82-year-old female with multiple medical problems who presents with severe right hip pain and inability to ambulate. At this time I discussed with the patient that XR does not demonstrate any fracture in her hip, but she does appear to have significant amount of osteoarthritis. I did explain to the patient that she can have flares of arthritis which can be difficult to manage. On exam, it does appear most of her pain is in her groin and related to her hip. With this in mind, I would consider interventional radiology consult for possible placement of intra- articular steroid injection to see if this helps. She does have chronic low back issues however her symptoms seem to be more related to her hip. I have discussed with the patient that I would recommend her attempting intra- articular injection as a diagnostic and therapeutic treatment modality. I recommend she continue to follow up as scheduled with Dr. Ritchie Hagen on October 08. Aliya Wooten MD Sep 14, 2017 09:42
[2017-09-14] MEDS: ASPIRIN EC 81 MG TABEC PO SCH (09:50)
[2017-09-14] MEDS: SODIUM CHLORIDE 0.9% FLUSH 10 ML FLUSH IV FLUSH SCH ×2 (09:50→21:00)
[2017-09-14] MEDS: METOPROLOL TARTRATE 25 MG TAB PO SCH ×2 (09:50→22:45)
[2017-09-14] MEDS: DOCUSATE SODIUM 50 MG/SENNA 8.6 MG TAB PO SCH ×2 (09:51→22:45)
[2017-09-14] MEDS: RIVAROXABAN 20 MG TAB PO SCH (09:52)
[2017-09-14] MEDS: PENICILLIN V POTASSIUM 500 MG TAB PO SCH ×2 (09:52→22:45)
[2017-09-14 10:10] LABS: AUTOMATED NEUTROPHIL # 5.2 TH/MM3 (1.8-7.7); BASOPHIL # 0.1 TH/MM3 (0-0.2); BASOPHIL % 0.8 % (0.0-2.0); EOSINOPHIL # 0.2 TH/MM3 (0-0.4); EOSINOPHIL % 1.8 % (0.0-4.0); HEMATOCRIT 33.5 % (35.0-46.0); HEMO FLAGS DIFF FINAL; LYMPH % 25.6 % (9.0-44.0); LYMPHOCYTE # 2.1 TH/MM3 (1.0-4.8); MEAN CORPUSCULAR HGB CONC 33.4 % (32.0-36.0); MONO % 8.9 % (0.0-8.0); NEUT % 62.9 % (16.0-70.0); PLATELET COUNT 271 TH/MM3 (150-450); RED BLOOD COUNT 3.73 MIL/MM3 (4.00-5.30); RED CELL DISTRIBUTION WIDTH 14.6 % (11.6-17.2); WHITE BLOOD COUNT 8.3 TH/MM3 (4.0-11.0)
[2017-09-14 10:21] LABS: BICARBONATE 24.8 MEQ/L (21.0-32.0); POTASSIUM 3.7 MEQ/L (3.5-5.1)
[2017-09-14 12:00] VITALS: BP 118/66; PULSE 67; RESP 18; TEMP 97.7; O2SAT 98
[2017-09-14] MEDS: MAGNESIUM OXIDE 400 MG TAB PO SCH ×2 (13:19→17:06)
[2017-09-14] MEDS ORDERED: TRIAMCINOLONE ACETONIDE 40 MG/ML VIAL ONE (15:40)
[2017-09-14] MEDS ORDERED: ROPIVACAINE 1% PF INJ 20 ML AMP ONE (15:40)
[2017-09-14 16:00] VITALS: BP 133/58; PULSE 71; RESP 18; TEMP 98; O2SAT 97
[2017-09-14] MEDS ORDERED: IOHEXOL 300 MG/ML 50 ML BTL (for RAD DIAG) OTHER ONE (16:00)
--- NOTE | 2017-09-14 16:00 | PD.RAD ---
Post Procedure Progress Note Pre Procedure Diagnosis: (1) Inability to ambulate due to right hip Post Procedure Diagnosis: (1) Inability to ambulate due to right hip Procedure Date: Sep 14, 2017 Supervising Radiologist: Ventura Sheppard Estimated blood loss: none Plan of Activity Patient to Unit: Nursing Unit Patient Condition: Fair Additional Comments: Right hip steroid injection preformed with a 25 gauge needle. Full dictated report to follow See PACS Report for procedural detail/treatment Ventura Sheppard MD Sep 14, 2017 16:00
--- NOTE | 2017-09-14 16:28 | HHI.PR ---
Subjective Remarks Follow-up right hip pain. Agrees to undergo intra-articular steroid injection. Complains of intermittent right hip pain with movement. Discussed with RN Objective Vitals Vital Signs Date Time Temp Pulse Resp B/P (MAP) Pulse Ox O2 Delivery O2 Flow Rate FiO2 09/14/17 12:00 97.7 67 18 118/66 (83) 98 09/14/17 07:30 98.2 75 20 117/56 (76) 98 09/14/17 04:13 18 09/14/17 03:58 98.7 69 18 118/56 (76) 97 09/13/17 23:36 98.7 74 18 122/68 (86) 98 09/13/17 20:14 98.1 89 18 131/78 (95) 98 09/13/17 18:44 18 Result Diagram: 09/14/1715 09/14/17914 Imaging Last Impressions Aorta CTA 09/13/17 0647 Signed Impressions: Service Date/Time: Wednesday, September 13, 2017 08:46 - CONCLUSION: 1. The thoracic and abdominal aorta are normal in caliber. There is no evidence of dissection. 2. The iliac vessels are widely patent. 3. Incidental 3.6 cm simple cyst arising from the left kidney. 4. Degenerative changes in the thoracic spine. 5. Postsurgical changes in the lumbar spine. Ventura Sheppard MD Lower Extremity Ultrasound 09/13/17 0626 Signed Impressions: Service Date/Time: Wednesday, September 13, 2017 07:26 - CONCLUSION: Normal examination. Jeremy Andino Jr., MD Chest X-Ray 09/13/17 0625 Signed Impressions: Service Date/Time: Wednesday, September 13, 2017 06:29 - CONCLUSION: Minimal infiltrate left lung base. Right lung remains clear . Jabier Pringle MD Pelvis X-Ray 09/13/17 0000 Signed Impressions: Service Date/Time: Wednesday, September 13, 2017 14:58 - CONCLUSION: Degenerative changes about both hips. Jaden Sheppard MD FACR Femur X-Ray 09/13/17 0000 Signed Impressions: Service Date/Time: Wednesday, September 13, 2017 14:59 - CONCLUSION: Negative for fracture.. Jaden Sheppard MD FACR Objective Remarks GENERAL: This is a well-nourished, well-developed patient, in no apparent distress. SKIN: Bilateral lower extremity chronic venous stasis. Mild overlying erythema with minimal warmth. CARDIOVASCULAR: Regular rate and rhythm without murmurs, gallops, or rubs. RESPIRATORY: Clear to auscultation. Breath sounds equal bilaterally. No wheezes , rales, or rhonchi. GASTROINTESTINAL: Abdomen soft, non-tender, nondistended. . No guarding. MUSCULOSKELETAL: Extremities without clubbing, cyanosis. Bilateral lower extremity pitting edema 2+ up to mid espinoza. NEUROLOGICAL: Awake and alert. RLE inability to move due to pain. Normal speech Procedures Intraarticular steroid injection right hip A/P Problem List: (1) Inability to ambulate due to right hip ICD Code: R26.2 - Difficulty in walking, not elsewhere classified Status: Acute Assessment and Plan Inability to ambulate Severe right lower extremity pain. Likely secondary to osteoarthritis. This pain was masked previously by her chronic pain meds and injections that she was receiving for her back and neck pains. -For intra-articular steroid injection. Continue pain management with Lortab and morphine. Follow-up PT Clinical evidence of dehydration/poor oral intake in the past 2 days. Hold diuretics for now. We'll continue to monitor repeat BMP and CK in the morning Infiltrate left lung base. Patient without symptoms of pneumonia. Outpatient follow-up Severe aortic stenosis status post bovine aortic valve replacement in December 2016. Left heart catheter and SPECT perfusion scans previously done did not reveal any evidence of coronary artery disease. Right heart failure. Currently being investigated for possible sleep apnea. Hypertension Hyperlipidemia Obesity TIA Chronic anticoagulation on Xarelto -Stable continue outpatient medications as appropriate Discussed with RN to update medication list Discharge Planning Possible discharge in the morning Pieter Pitts MD Sep 14, 2017 16:28
--- NOTE | 2017-09-14 16:38 | RADRPT ---
EXAM DATE/TIME: 09/14/2017 16:47 [facility] COMPARISON: No previous studies available for comparison. INDICATIONS : Patient with severe right hip pain in need of steroid injection. MEDICAL HISTORY : Severe aortic stenosis, Right heart failure, HTN, HLD, Chronic peripheral edema, TIA, Chronic anticoa gulation, Multiple DVT's SURGICAL HISTORY : Aortic valve replacement, Left heart catheter, Right knee replacement, Neck and back surgery ENCOUNTER: Initial ACUITY: 3 weeks PAIN SCORE: 10/10 LOCATION: Right hip and knee FLUORO TIME: 2.1 minutes IMAGE SERIES: 2 CONTRAST: 5cc Omnipaque (iohexol) 300 DEVICE: 25 gauge needle was placed into the right hip joint MEDICATIONS: 1.) 1 cc triamcinolone (Kenalog) IA 2.) 2 cc ropivacaine (Naropin) IA 3.) 3 cc Lidocaine IA RESPONSE: Pre procedure pain level was 10/10. Post procedure pain level was 10/10. PROCEDURE : The risks, benefits and alternatives to the procedure were explained and verbal and written consent w as obtained. The site was prepped in sterile fashion. Full sterile technique was used, including ca p, mask, sterile gloves and gown and a large sterile sheet. Hand hygiene and 2% chlorhexidine and/or betadine/alcohol prep was utilized per protocol for cutaneous antisepsis. The skin and subcutaneous tissues were infiltrated with local anesthetic solution. Under sterile conditions and using aseptic technique with fluoroscopic guidance the joint was accesse d with a 25 gauge needle and positive contrast was injected to confirm intra-articular position. Fol lowing this, the prescribed mixture of Kenalog and local anesthetics was injected. The patient camille ated the procedure well and there were no complications. CONCLUSION: Uncomplicated therapeutic injection performed under fluoroscopic guidance. Ventura Sheppard MD on September 14, 2017 at 16:36 Board Certified Radiologist. This report was verified electronically.
--- NOTE | 2017-09-14 18:00 | HHI.DCPOC ---
Discharge Care Plan Diagnosis: (1) Inability to ambulate due to right hip (2) Osteoarthritis of hips, bilateral Goals to Promote Your Health * To prevent worsening of your condition and complications * To maintain your health at the optimal level Directions to Meet Your Goals Take your medications as prescribed Follow your dietary instruction Follow activity as directed Keep your appointments as scheduled Take your immunizations and boosters as scheduled If your symptoms worsen call your PCP, if no PCP go to Urgent Care Center or Emergency Room Smoking is Dangerous to Your Health. Avoid second hand smoke Call the 24-hour hour crisis hotline for domestic abuse at Harini Hinkle Sep 14, 2017 18:00
[2017-09-14 20:40] VITALS: BP 131/63; PULSE 76; RESP 18; TEMP 98.1; O2SAT 99
[2017-09-14] MEDS: MORPHINE SULFATE 2 MG/ML INJ IV PUSH PRN (22:44)
[2017-09-14] MEDS: ATORVASTATIN 40 MG TAB PO SCH (22:45)
[2017-09-14 23:53] VITALS: BP 142/74; PULSE 69; RESP 18; TEMP 96.3; O2SAT 97
[2017-09-15 04:11] VITALS: BP 152/70; PULSE 77; RESP 18; TEMP 95.7; O2SAT 96
[2017-09-15 07:50] VITALS: BP 162/72; PULSE 74; RESP 20; TEMP 97.4; O2SAT 96
--- NOTE | 2017-09-15 07:58 | PD.ORT.PN ---
Subjective Subjective Remarks Patient resting comfortably today. She states her right hip does feel better today since her injection. She reports she has been up and ambulating with much improved pain in her right hip although it is not completely resolved. Objective Vitals Vital Signs Date Time Temp Pulse Resp B/P (MAP) Pulse Ox O2 Delivery O2 Flow Rate FiO2 09/15/17 07:50 97.4 74 20 162/72 (102) 96 09/15/17 04:11 95.7 77 18 152/70 (97) 96 09/14/17 23:53 96.3 69 18 142/74 (96) 97 09/14/17 23:25 18 09/14/17 20:40 98.1 76 18 131/63 (85) 99 09/14/17 16:00 98.0 71 18 133/58 (83) 97 09/14/17 12:00 97.7 67 18 118/66 (83) 98 Result Diagram: 09/14/17 0915 09/14/17 0915 Objective Remarks awake, alert, in no distress Nonlabored respirations Regular rate Soft abdomen Right lower extremity allows increased flexion and rotation of the hip although rotation does still cause some discomfort. Neurovascularly intact distally Bilateral upper and left lower extremity without significant discomfort or pain. Neurovascularly intact. Assessment & Plan Assessment and Plan 82-year-old female with multiple medical problems who presents with severe right hip pain and inability to ambulate. Patient is doing better now that she has had an intra-articular steroid injection by interventional radiology. I discussed with the patient that she should start to mobilize more today with the help of physical therapy. Patient is orthopedically stable for discharge. I recommend she continue to follow up as scheduled with Dr. Ritchie Hagen on October 08. Aliya Wooten MD Sep 15, 2017 07:58
[2017-09-15] MEDS: ASPIRIN EC 81 MG TABEC PO SCH (08:59)
[2017-09-15] MEDS: RIVAROXABAN 20 MG TAB PO SCH (08:59)
[2017-09-15] MEDS: SODIUM CHLORIDE 0.9% FLUSH 10 ML FLUSH IV FLUSH SCH ×2 (09:00→20:54)
[2017-09-15] MEDS: METOPROLOL TARTRATE 25 MG TAB PO SCH ×2 (09:00→22:38)
[2017-09-15] MEDS: ACETAMINOPHEN/HYDROcodone 325 MG/10 MG TAB PO PRN ×3 (09:00→17:32)
[2017-09-15] MEDS: DOCUSATE SODIUM 50 MG/SENNA 8.6 MG TAB PO SCH ×2 (09:00→20:55)
[2017-09-15] MEDS: PENICILLIN V POTASSIUM 500 MG TAB PO SCH ×2 (09:07→20:56)
[2017-09-15] MEDS: MAGNESIUM OXIDE 400 MG TAB PO SCH ×2 (11:40→17:31)
[2017-09-15] MEDS ORDERED: REQU5TAB PO (12:29)
[2017-09-15 12:33] VITALS: BP 137/65; PULSE 79; RESP 21; TEMP 97.3; O2SAT 97
--- NOTE | 2017-09-15 14:35 | HHI.FF ---
Face to Face Verification Diagnosis: (1) Inability to ambulate due to right hip (2) Osteoarthritis of hips, bilateral Physical Therapy Order: Evaluate and Treat, Improve ambulation, Strength and gait training I have seen patient Amelia Carbajal on 09/15/17. My clinical findings support the need for the requested home health care services because: Ltd mobility - disease progression Deconditioned w/ increased weakness Limited ability to care for self High risk of falls I certify that my clinical findings support that this patient is homebound because: Post-op weakness Unsteady gait/balance Unsafe to leave home unassisted Unable to use public transportation Harini Hinkle Sep 15, 2017 14:35
[2017-09-15 15:46] VITALS: BP 132/67; PULSE 82; RESP 20; TEMP 97.7; O2SAT 99
--- NOTE | 2017-09-15 17:15 | HHI.PR ---
Subjective Remarks Follow-up right hip pain. Improving pain status post steroid injection. PT recommends rehabilitation. Also complaining of chronic hallucinations, patient advised to decrease narcotics and Requip Objective Vitals Vital Signs Date Time Temp Pulse Resp B/P (MAP) Pulse Ox O2 Delivery O2 Flow Rate FiO2 09/15/17 15:46 97.7 82 20 132/67 (88) 99 09/15/17 12:33 97.3 79 21 137/65 (89) 97 09/15/17 07:50 97.4 74 20 162/72 (102) 96 09/15/17 04:11 95.7 77 18 152/70 (97) 96 09/14/17 23:53 96.3 69 18 142/74 (96) 97 09/14/17 23:25 18 09/14/17 20:40 98.1 76 18 131/63 (85) 99 Result Diagram: 09/14/17 0915 09/14/17 0915 Imaging Last Impressions Therapeutic Injection 09/14/17 0000 Signed Impressions: Service Date/Time: Thursday, September 14, 2017 16:47 - CONCLUSION: Uncomplicated therapeutic injection performed under fluoroscopic guidance. Ventura Sheppard MD Aorta CTA 09/13/17 0647 Signed Impressions: Service Date/Time: Wednesday, September 13, 2017 08:46 - CONCLUSION: 1. The thoracic and abdominal aorta are normal in caliber. There is no evidence of dissection. 2. The iliac vessels are widely patent. 3. Incidental 3.6 cm simple cyst arising from the left kidney. 4. Degenerative changes in the thoracic spine. 5. Postsurgical changes in the lumbar spine. Ventura Sheppard MD Lower Extremity Ultrasound 09/13/17 0626 Signed Impressions: Service Date/Time: Wednesday, September 13, 2017 07:26 - CONCLUSION: Normal examination. Jeremy Andino Jr., MD Chest X-Ray 09/13/17 0625 Signed Impressions: Service Date/Time: Wednesday, September 13, 2017 06:29 - CONCLUSION: Minimal infiltrate left lung base. Right lung remains clear . Jabier Pringle MD Pelvis X-Ray 09/13/17 0000 Signed Impressions: Service Date/Time: Wednesday, September 13, 2017 14:58 - CONCLUSION: Degenerative changes about both hips. Jaden Sheppard MD FACR Femur X-Ray 09/13/17 0000 Signed Impressions: Service Date/Time: Wednesday, September 13, 2017 14:59 - CONCLUSION: Negative for fracture.. Jaden Sheppard MD FACR Objective Remarks GENERAL: This is a well-nourished, well-developed patient, in no apparent distress. SKIN: Bilateral lower extremity chronic venous stasis. Mild overlying erythema with minimal warmth. CARDIOVASCULAR: Regular rate and rhythm without murmurs, gallops, or rubs. RESPIRATORY: Clear to auscultation. Breath sounds equal bilaterally. No wheezes , rales, or rhonchi. GASTROINTESTINAL: Abdomen soft, non-tender, nondistended. . No guarding. MUSCULOSKELETAL: Extremities without clubbing, cyanosis. Bilateral lower extremity pitting edema 2+ up to mid espinoza. NEUROLOGICAL: Awake and alert. RLE range of motion improved. Normal speech Procedures Intraarticular steroid injection right hip A/P Problem List: (1) Inability to ambulate due to right hip ICD Code: R26.2 - Difficulty in walking, not elsewhere classified Status: Acute Assessment and Plan Inability to ambulate Severe right lower extremity pain. Likely secondary to osteoarthritis. This pain was masked previously by her chronic pain meds and injections that she was receiving for her back and neck pains. -Improved status post intra-articular steroid injection. Continue pain management with Lortab and morphine. Follow-up PT recommends rehabilitation Clinical evidence of dehydration/poor oral intake in the past 2 days. Improved restart diuretics. We'll continue to monitor repeat BMP and CK today not done Infiltrate left lung base. Patient without symptoms of pneumonia. Outpatient follow-up Severe aortic stenosis status post bovine aortic valve replacement in December 2016. Left heart catheter and SPECT perfusion scans previously done did not reveal any evidence of coronary artery disease. Right heart failure. Currently being investigated for possible sleep apnea. Hypertension Hyperlipidemia Obesity TIA Chronic anticoagulation on Xarelto -Stable continue outpatient medications as appropriate Discharge Planning Discharge to rehabilitation when arranged Pieter iPtts MD Sep 15, 2017 17:15
[2017-09-15] MEDS ORDERED: HYDR-3366 PO (17:19)
[2017-09-15] MEDS: BUMETANIDE 1 MG TAB PO SCH (17:32)
[2017-09-15 19:52] VITALS: BP 114/73; PULSE 88; RESP 18; TEMP 97.8; O2SAT 95
[2017-09-15] MEDS: SPIRONOLACTONE 50 MG TAB PO SCH (20:55)
[2017-09-15] MEDS: ATORVASTATIN 40 MG TAB PO SCH (20:55)
[2017-09-15 22:37] VITALS: BP 137/59
[2017-09-16 00:36] VITALS: BP 141/65; PULSE 77; RESP 19; TEMP 95.7; O2SAT 98
[2017-09-16 03:51] VITALS: BP 128/68; PULSE 71; RESP 18; TEMP 96.6; O2SAT 98
[2017-09-16 07:47] VITALS: BP 129/81; PULSE 85; RESP 20; TEMP 97.9; O2SAT 96
[2017-09-16] MEDS: ACETAMINOPHEN/HYDROcodone 325 MG/10 MG TAB PO PRN ×2 (07:51→16:15)
[2017-09-16] MEDS: RIVAROXABAN 20 MG TAB PO SCH (07:53)
[2017-09-16] MEDS: SPIRONOLACTONE 50 MG TAB PO SCH ×2 (07:53→23:57)
[2017-09-16] MEDS: BUMETANIDE 1 MG TAB PO SCH (07:53)
[2017-09-16] MEDS: DOCUSATE SODIUM 50 MG/SENNA 8.6 MG TAB PO SCH ×2 (07:53→21:00)
[2017-09-16] MEDS: SODIUM CHLORIDE 0.9% FLUSH 10 ML FLUSH IV FLUSH SCH ×2 (07:54→23:56)
[2017-09-16] MEDS: PENICILLIN V POTASSIUM 500 MG TAB PO SCH (07:54)
[2017-09-16] MEDS: METOPROLOL TARTRATE 25 MG TAB PO SCH ×2 (07:54→23:58)
[2017-09-16] MEDS: ASPIRIN EC 81 MG TABEC PO SCH (07:54)
[2017-09-16] MEDS: MAGNESIUM OXIDE 400 MG TAB PO SCH ×2 (11:00→16:00)
--- NOTE | 2017-09-16 11:25 | PD.PSY.CON ---
Provisional Diagnosis Admission Date Sep 13, 2017 at 09:48 [place] I. Unspecified psychosis [place] II. Deferred [place] III. Severe aortic stenosis status post bovine aortic valve replacement in December 2016. Left heart catheter and SPECT perfusion scans previously done did not reveal any evidence of coronary artery disease. Right heart failure. Currently being investigated for possible sleep apnea. Hypertension Chronic peripheral edema Chronic dyspnea on exertion Hyperlipidemia Obesity TIA Chronic anticoagulation on Xarelto Fibromyalgia [place] IV. Patient lives alone [place] V. 57 History of Present Illness Service Psychiatry Consult Requested By ER Reason for Consult visual hallucinations and paranoia Primary Care Physician Cha Bee D.O. HPI The patient is a 82-year-old lady, domiciled alone in [facility], retired, mother of 4 kids, with psychiatric history of depression, one psychiatric hospitalization, one suicide attempt 37 years ago, no established outpatient care, no medications, with medical history of Severe aortic stenosis status post bovine, aortic valve replacement in December 2016, Left heart catheter and SPECT perfusion scans previously done did not reveal any evidence of coronary artery disease, Right heart failure. Currently being investigated for possible sleep apnea, Hypertension, Chronic peripheral edema, Chronic dyspnea on exertion,. Hyperlipidemia, Obesity, TIA. Chronic anticoagulation on Xarelto, Fibromyalgia, who was who presents to the [facility] emergency department with a history of right lower extremity pain that she reports has made it impossible for her to ambulate at home. The patient reports that she normally gets around with a walker, however she has not been able to weight-bear on the right leg for the last 3 days. She also reports having a diminished appetite and did not eat anything yesterday. The patient reports that she was seen in the emergency department related to bilateral lower extremity pain recently. According to the record, the patient was seen by Dr. Enriquez on August 24, 2017. The patient at that time was complaining of bilateral lower extremity pain and swelling. Patient was consulted to psychiatry due to ongoing auditory hallucinations, agitation and paranoia. Chart was reviewed, case discussed with primary treating team and also collateral information from her son Ventura, , was obtained. Yesterday afternoon the patient became agitated, she was paranoid, talking with herself, and having active visual hallucinations. Today a psychiatric evaluation patient is calm and cooperative and also very pleasant. He says that she is looking forward to be discharged, because she is very motivated to go back home [facility] [place] [facility] [place]. Patient reports good mood, denies depression, denies anhedonia, denies hopelessness, denies helplessness, denies suicidal ideation, she denies auditory hallucinations, but she reports psychotic, frequent, sometimes anxiety provoking his, sometimes insightful visual hallucinations of seeing people inside her apartment. He said that sometimes she is aware that this is just an hallucination "and then I let it go "but other times she feels afraid from them. Patient is fully oriented 3, no attention deficit, no fluctuation of consciousness, no gross cognitive impairment present.. Review of Systems Constitutional: DENIES: Diaphoretic episodes, Fatigue, Fever, Weight gain, Weight loss, Chills, Dizziness, Change in appetite, Night Sweats Endocrine: DENIES: Abnorml menstrual pattern, Heat/cold intolerance, Polydipsia , Polyuria, Polyphagia Eyes: DENIES: Blurred vision, Diplopia, Eye inflammation, Eye pain, Vision loss , Photosensitivity, Double Vision Ears, nose, mouth, throat: DENIES: Tinnitus, Hearing loss, Vertigo, Nasal discharge, Oral lesions, Throat pain, Hoarseness, Ear Pain, Running Nose, Epistaxis, Sinus Pain, Toothache, Odynophagia Respiratory: DENIES: Apneas, Cough, Snoring, Wheezing, Hemoptysis, Sputum production, Shortness of breath Cardiovascular: DENIES: Chest pain, Palpitations, Syncope, Dyspnea on Exertion , PND, Lower Extremity Edema, Orthopnea, Claudication Gastrointestinal: DENIES: Abdominal pain, Black stools, Bloody stools, Constipation, Diarrhea, Nausea, Vomiting, Difficulty Swallowing, Anorexia Genitourinary: DENIES: Abnormal vaginal bleeding, Dysmenorrhea, Dyspareunia, Sexual dysfunction, Urinary frequency, Urinary incontinence, Urgency, Hematuria , Dysuria, Nocturia, Vaginal discharge Musculoskeletal: DENIES: Joint pain, Muscle aches, Stiffness, Joint Swelling, Back pain, Neck pain Integumentary: DENIES: Abnormal pigmentation, Pruritus, Rash, Nail changes, Breast masses, Breast skin changes, Nipple discharge Hematologic/lymphatic: DENIES: Bruising, Lymphadenopathy Psychiatric: COMPLAINS OF: Hallucinations, DENIES: Anxiety, Confusion, Mood changes, Depression, Agitation, Suicidal Ideation, Homicidal Ideation, Delusions Past Family Social History Coded Allergies: clarithromycin (Unverified Allergy, Severe, nausea, vomiting, 09/13/17) acetaminophen (Unverified Allergy, Intermediate, hives, 09/13/17) celecoxib (Unverified Allergy, Intermediate, hives, 09/13/17) oxycodone (Unverified Allergy, Intermediate, hives, 09/13/17) rofecoxib (Unverified Allergy, Intermediate, hives, 09/13/17) Active Scripts Hydrocodone-Acetaminophen ([place]) 10-325 Mg Tab, 1 TAB PO Q6H Y for PAIN, #12 TAB 0 Refills Prov:Pieter Pitts MD 09/15/17 Ropinirole (Requip) 5 Mg Tab, 5 MG PO BID for RLS, #60 TAB 0 Refills Prov:Adalid Farrell 09/15/17 Reported Medications Rivaroxaban (Xarelto) 20 Mg Tab, 20 MG PO DAILY for Blood Clot Prevention, TAB 0 Refills 08/24/17 Pantoprazole (Protonix) 40 Mg Tab, 40 MG PO DAILY for Reflux, #30 TAB 0 Refills 06/29/17 Ropinirole (Requip) 5 Mg Tab, 5 MG PO TID, #90 TAB 0 Refills 06/29/17 Magnesium (Magnesium) 250 Mg Tab, 250 MG PO BID for Nutritional Supplement 05/09/17 Potassium Chloride ER (Potassium Chloride ER) 10 Meq Tab, 20 MEQ PO BID for Electrolyte Replacement, #60 TAB 0 Refills 05/09/17 Bumetanide (Bumetanide) 1 Mg Tab, 1 MG PO DAILY, #30 TAB 0 Refills 05/09/17 Atorvastatin (Lipitor) 40 Mg Tab, 40 MG PO HS for Cholesterol Management, #30 TAB 0 Refills 05/09/17 Metoprolol Tartrate (Metoprolol Tartrate) 25 Mg Tab, 25 MG PO BID, #60 TAB 0 Refills 05/09/17 Ondansetron (Zofran) 8 Mg Tab, 8 MG PO TID Y for NAUSEA OR VOMITING, TAB 0 Refills 05/09/[address] (Caitlin Aspirin EC Low Dose) 81 Mg Tabdr, 81 MG PO DAILY 05/09/17 Spironolactone (Aldactone) 50 Mg Tab, 50 MG PO BID, #60 TAB 0 Refills 05/09/17 Fluticasone Nasal [place] (Flonase Nasal [place]) 50 Mcg/Act [place], 2 SPRAY EACH NARE DAILY for Allergies, #1 BOTTLE 0 Refills 05/09/17 Discontinued Reported Medications Rizatriptan (Rizatriptan) 10 Mg Tab, 10 MG PO AT ONSET Y for MIGRAINE HEADACHE May repeat 1 time in 2hrs if not pain free 06/29/17 Discontinued Scripts Gabapentin (Gabapentin) 300 Mg Cap, 600 MG PO TID, #90 CAP 0 Refills Prov:Ventura Enriquez MD 08/24/17 Current Medications Medications (Trade) Dose Ordered Sig/Cassie Route Start Time Stop Time Status Last Admin (NS Flush) 2 ml UNSCH PRN IV FLUSH 09/13/17 10:00 (NS Flush) 2 ml BID IV FLUSH 09/13/17 21:00 09/16/17 07:54 (Narcan Inj) 0.4 mg UNSCH PRN IV PUSH 09/13/17 10:00 (Morphine Inj) 2 mg Q3H PRN IV PUSH 09/13/17 10:30 09/14/17 22:44 ([place] 10-325 Mg) 1 tab Q4H PRN PO 09/13/17 10:30 09/16/17 07:51 (Ecotrin Ec) 81 mg DAILY PO 09/14/17 09:00 09/16/17 07:54 (Lipitor) 40 mg HS PO 09/13/17 21:00 09/15/17 20:55 (Lopressor) 25 mg BID PO 09/13/17 21:00 09/16/17 07:54 (Xarelto) 20 mg DAILY PO 09/14/17 09:00 09/16/17 07:53 (Mag-Ox) 400 mg BID@1100,1600 PO 09/13/17 16:00 09/15/17 17:31 (Zofran Odt) 8 mg TID PRN PO 09/13/17 13:00 (Requip) 5 mg TID PO 09/13/17 13:00 09/16/17 07:52 (Veetids) 500 mg BID PO 09/13/17 21:00 09/16/17 07:54 (Jyoti-Colace) 1 tab BID PO 09/14/17 09:00 09/16/17 07:53 (Milk Of Magnesia Liq) 30 ml Q12H PRN PO 09/14/17 09:00 (Senokot) 17.2 mg Q12H PRN PO 09/14/17 08:30 (Dulcolax Supp) 10 mg DAILY PRN RECTAL 09/14/17 09:00 (Lactulose Liq) 30 ml DAILY PRN PO 09/14/17 09:00 (Bumetanide) 1 mg DAILY PO 09/15/17 17:15 09/16/17 07:53 (Aldactone) 50 mg BID PO 09/15/17 21:00 09/16/17 07:53 Family Psych History She denies family psychiatric history Social History Patient was born and raised in [place], she lives in the [place] alone, she is , 4 kids, highest level of education is 12th grade Patient's Strengths (min. 2) Family support Physical Exam No tremors, no withdrawal, no EPS, no psychomotor agitation retardation at this moment Vital Signs Vital Signs Date Time Temp Pulse Resp B/P (MAP) Pulse Ox O2 Delivery O2 Flow Rate FiO2 09/16/17 07:47 97.9 85 20 129/81 (97) 96 09/13/17 09:16 Room Air Lab Results Reviewed Mental Status Examination Appearance: Appropriate Consciousness: Alert Orientation: x4 Motor Activity: Normal gait Speech: Unremarkable Language: Adequate Fund of Knowledge: Adequate Attention and Concentration: Adequate Memory: Unremarkable Mood: Appropriate Affect: Appropriate Thought Process & Associations: Intact Thought Content: Appropriate, Hallucinations Hallucination Type: None Delusion Type: None Suicidal Ideation: No Suicidal Plan: No Suicidal Intention: No Homicidal Ideation: No Homicidal Plan: No Homicidal Intention: No Insight: Adequate Judgment: Adequate Assessment & Plan Problem List: (1) Unspecified psychosis ICD Codes: F29 - Unspecified psychosis not due to a substance or known physiological condition Assessment & Plan: On psychiatric evaluation today the patient presents with episodic, frequent, sometimes anxiety provoking, usually mute visual hallucinations of people coming inside her apartment. Patient seems to be insightful of the nature of this perceptual disturbances. He does not seem to be especially disrupted by them. Yesterday the patient was reportedly agitated and paranoid in the afternoon, but verbally de-escalate. Patient cognition seems to be intact, she is oriented 3, without attention deficit, with conserve repetition, immediate recall, distraction, concentration and executive function. Patient denies depressive symptoms, anxiety, dayana, or additional psychotic symptoms. At this moment is unclear if visual hallucinations are related with with delirium due to underlying medical conditions, neurocognitive disorder or a primary psychotic disorder. Patient does not meet criteria for involuntary psychiatric admission at this moment. She will benefit of a low- dose of Seroquel 12.5 mg at bedtime, that can be increased to twice a day as patient can tolerate and based in her need. Psychoeducation provided. Patient is psychiatrically stable to be discharged to physical rehabilitation. Assessment & Plan Estimated LOS: Scar High MD Sep 16, 2017 11:25
[2017-09-16 11:36] VITALS: BP 120/67; PULSE 77; RESP 18; TEMP 97.9; O2SAT 96
[2017-09-16] MEDS ORDERED: PILL SPLITTER OTHER PRN (11:45)
[2017-09-16] MEDS ORDERED: LIPI40TA PO (13:38)
[2017-09-16] MEDS ORDERED: METO25TA3 PO (13:38)
[2017-09-16] MEDS ORDERED: ALDA50TA2 PO (13:38)
[2017-09-16] MEDS ORDERED: ASPI1TAB73 PO (13:38)
[2017-09-16] MEDS ORDERED: FLUT1SPR5 EACH NARE (13:38)
[2017-09-16] MEDS ORDERED: ONDA4TAB7 PO (13:39)
[2017-09-16] MEDS ORDERED: BUME1TAB PO (13:39)
[2017-09-16] MEDS ORDERED: MAGN400T2 PO (13:39)
[2017-09-16] MEDS ORDERED: SERO25TA PO (13:39)
[2017-09-16] MEDS ORDERED: XARE20TA PO (13:39)
[2017-09-16] MEDS ORDERED: POTA10TA2 PO (13:39)
[2017-09-16] MEDS ORDERED: REQU5TAB PO (13:39)
[2017-09-16] MEDS ORDERED: HYDR-3366 PO (13:39)
--- NOTE | 2017-09-16 14:46 | HHI.PR ---
Subjective Remarks Follow-up right hip pain and psychosis. Improving right hip pain. Denies hallucinations but discussed with psychiatry to start Seroquel. Patient requesting to be discharged to [facility]. Discussed with RN Objective Vitals Vital Signs Date Time Temp Pulse Resp B/P (MAP) Pulse Ox O2 Delivery O2 Flow Rate FiO2 09/16/17 11:36 97.9 77 18 120/67 (84) 96 09/16/17 07:47 97.9 85 20 129/81 (97) 96 09/16/17 03:51 96.6 71 18 128/68 (88) 98 09/16/17 00:36 95.7 77 19 141/65 (90) 98 09/15/17 22:37 137/59 (85) 09/15/17 19:52 97.8 88 18 114/73 (87) 95 09/15/17 15:46 97.7 82 20 132/67 (88) 99 Result Diagram: 09/14/17 0915 09/14/17 0915 Imaging Last Impressions Therapeutic Injection 09/14/17 0000 Signed Impressions: Service Date/Time: Thursday, September 14, 2017 16:47 - CONCLUSION: Uncomplicated therapeutic injection performed under fluoroscopic guidance. Ventura Sheppard MD Aorta CTA 09/13/1747 Signed Impressions: Service Date/Time: Wednesday, September 13, 2017 08:46 - CONCLUSION: 1. The thoracic and abdominal aorta are normal in caliber. There is no evidence of dissection. 2. The iliac vessels are widely patent. 3. Incidental 3.6 cm simple cyst arising from the left kidney. 4. Degenerative changes in the thoracic spine. 5. Postsurgical changes in the lumbar spine. Ventura Sheppard MD Lower Extremity Ultrasound 09/13/1726 Signed Impressions: Service Date/Time: Wednesday, September 13, 2017 07:26 - CONCLUSION: Normal examination. Jeremy Andino Jr., MD Chest X-Ray 09/13/1725 Signed Impressions: Service Date/Time: Wednesday, September 13, 2017 06:29 - CONCLUSION: Minimal infiltrate left lung base. Right lung remains clear . Jabier Pringle MD Pelvis X-Ray 09/13/17 0000 Signed Impressions: Service Date/Time: Wednesday, September 13, 2017 14:58 - CONCLUSION: Degenerative changes about both hips. Jaden Sheppard MD FACR Femur X-Ray 09/13/17 0000 Signed Impressions: Service Date/Time: Wednesday, September 13, 2017 14:59 - CONCLUSION: Negative for fracture.. Jaden Sheppard MD FACR Objective Remarks GENERAL: This is a well-nourished, well-developed patient, in no apparent distress. SKIN: Bilateral lower extremity chronic venous stasis. CARDIOVASCULAR: Regular rate and rhythm without murmurs, gallops, or rubs. RESPIRATORY: Clear to auscultation. Breath sounds equal bilaterally. No wheezes , rales, or rhonchi. GASTROINTESTINAL: Abdomen soft, non-tender, nondistended. . No guarding. MUSCULOSKELETAL: Extremities without clubbing, cyanosis. Bilateral lower extremity pitting edema 2+ up to mid espinoza. NEUROLOGICAL: Awake and alert. RLE range of motion improved. Normal speech Procedures Intraarticular steroid injection right hip A/P Problem List: (1) Inability to ambulate due to right hip ICD Code: R26.2 - Difficulty in walking, not elsewhere classified Status: Acute Assessment and Plan Inability to ambulate Severe right lower extremity pain. Likely secondary to osteoarthritis. This pain was masked previously by her chronic pain meds and injections that she was receiving for her back and neck pains. -Improved status post intra-articular steroid injection. Continue pain management with Lortab and morphine. Follow-up PT recommends rehabilitation Clinical evidence of dehydration/poor oral intake in the past 2 days. Improved restart diuretics. We'll continue to monitor repeat BMP and CK patient refused Infiltrate left lung base. Patient without symptoms of pneumonia. Outpatient follow-up Hallucinations. Seroquel started cleared for discharge by psychiatry Severe aortic stenosis status post bovine aortic valve replacement in December 2016. Left heart catheter and SPECT perfusion scans previously done did not reveal any evidence of coronary artery disease. Right heart failure. Currently being investigated for possible sleep apnea. Hypertension Hyperlipidemia Obesity TIA Chronic anticoagulation on Xarelto -Stable continue outpatient medications as appropriate Discharge Planning Discharge to rehabilitation when arranged Pieter Pitts MD Sep 16, 2017 14:46
[2017-09-16 16:01] VITALS: BP 127/87; PULSE 61; RESP 18; TEMP 97.7; O2SAT 95
[2017-09-16 20:09] VITALS: BP 136/66; PULSE 86; RESP 16; TEMP 97.4; O2SAT 97
[2017-09-16] MEDS ORDERED: QUEtiapine FUMARATE 25 MG TAB PO SCH (21:00)
[2017-09-16 22:25] LABS: MAGNESIUM 2.3 MG/DL (1.5-2.5); POTASSIUM 3.5 MEQ/L (3.5-5.1)
[2017-09-16] MEDS: ATORVASTATIN 40 MG TAB PO SCH (23:59)
[2017-09-17] MEDS: PENICILLIN V POTASSIUM 500 MG TAB PO SCH ×2 (00:01→09:14)
[2017-09-17 00:03] VITALS: BP 143/72; PULSE 99; RESP 18; TEMP 98.1; O2SAT 98
[2017-09-17] MEDS: ACETAMINOPHEN/HYDROcodone 325 MG/10 MG TAB PO PRN ×4 (00:43→15:49)
[2017-09-17 05:08] VITALS: BP 129/62; PULSE 79; RESP 20; TEMP 97.3; O2SAT 98
[2017-09-17 07:48] VITALS: BP 132/64; PULSE 71; RESP 19; TEMP 97.6; O2SAT 94
[2017-09-17] MEDS: SPIRONOLACTONE 50 MG TAB PO SCH ×2 (09:12→21:12)
[2017-09-17] MEDS: BUMETANIDE 1 MG TAB PO SCH (09:13)
[2017-09-17] MEDS: RIVAROXABAN 20 MG TAB PO SCH (09:13)
[2017-09-17] MEDS: ASPIRIN EC 81 MG TABEC PO SCH (09:14)
[2017-09-17] MEDS: DOCUSATE SODIUM 50 MG/SENNA 8.6 MG TAB PO SCH ×2 (09:14→21:12)
[2017-09-17] MEDS: METOPROLOL TARTRATE 25 MG TAB PO SCH ×2 (09:14→21:12)
[2017-09-17] MEDS: SODIUM CHLORIDE 0.9% FLUSH 10 ML FLUSH IV FLUSH SCH ×2 (09:15→21:16)
--- NOTE | 2017-09-17 11:46 | HHI.PYPN ---
Subjective Remarks On psychiatric evaluation today the patient is calm, cooperative and pleasant. He reports that she has been experiencing in her legs and she is anxious about being discharged to rehabilitation. She says that she would rather to go home even to stay here in the hospital. The patient continued to report frequent episodes of visual hallucinations of people around her. As per nurse in charge , patient yesterday became very paranoid in the evening agitated, and to leave the hospital and lost the contact with the reality. At the moment of this evaluation the patient is fully oriented, without any fluctuation of consciousness or attention deficit. The patient is insightful about the nature of perceptual disturbances, but she reports that at times is difficult to differentiate between hallucinations and reality. Review of Systems Psychiatric: COMPLAINS OF: Hallucinations Mental Status Examination Appearance: Appropriate Consciousness: Alert Orientation: x4 Motor Activity: Normal gait Speech: Unremarkable Language: Adequate Fund of Knowledge: Adequate Attention and Concentration: Adequate Memory: Unremarkable Mood: Appropriate Affect: Appropriate Thought Process & Associations: Intact Thought Content: Appropriate, Hallucinations Hallucination Type: None Delusion Type: None Suicidal Ideation: No Suicidal Plan: No Suicidal Intention: No Homicidal Ideation: No Homicidal Plan: No Homicidal Intention: No Insight: Adequate Judgment: Adequate Results Labs Test 09/16/17 21:20 Blood Urea Nitrogen 31 MG/DL Creatinine 0.93 MG/DL Random Glucose 118 MG/DL Calcium Level 9.2 MG/DL Magnesium Level 2.3 MG/DL Sodium Level 138 MEQ/L Potassium Level 3.5 MEQ/L Chloride Level 104 MEQ/L Carbon Dioxide Level 26.0 MEQ/L Anion Gap 8 MEQ/L Estimat Glomerular Filtration Rate 58 ML/MIN Total Creatine Kinase 40 U/L Vitals/IOs Vital Signs Date Time Temp Pulse Resp B/P (MAP) Pulse Ox O2 Delivery O2 Flow Rate FiO2 09/17/17 07:48 97.6 71 19 132/64 (86) 94 09/13/17 09:16 Room Air Assessment & Plan Problem List: (1) Unspecified psychosis ICD Codes: F29 - Unspecified psychosis not due to a substance or known physiological condition Assessment & Plan: Patient continues to present periodically, anxiety provoking visual hallucinations. She also has been reportedly paranoid in the evening. My concern with the patient is that she might become psychotic when she is alone at home, but this issue was discussed with the patient and her son. I have offered to the patient voluntary admission in psychiatry for stabilization of her visual hallucinations. I have discussed the case with PA in charge. I will increase Seroquel to 25 mg in the evening. Extensive support , motivation and psychoeducation provided. Assessment & Plan Estimated LOS: days Justification for Cont. Inpt. Patient might benefit of voluntary psychiatric admission for treatment of visual hallucinations and paranoia. Scar Salazar MD Sep 17, 2017 11:46
[2017-09-17] MEDS: MAGNESIUM OXIDE 400 MG TAB PO SCH ×2 (11:50→16:00)
[2017-09-17 15:35] VITALS: BP 127/69; PULSE 73; RESP 18; TEMP 98.6; O2SAT 96
--- NOTE | 2017-09-17 16:07 | HHI.PR ---
Subjective Remarks Stable stated her hip pain is slightly better, awaiting placement Objective Vitals Vital Signs Date Time Temp Pulse Resp B/P (MAP) Pulse Ox O2 Delivery O2 Flow Rate FiO2 09/17/17 15:35 98.6 73 18 127/69 (88) 96 09/17/17 07:48 97.6 71 19 132/64 (86) 94 09/17/17 05:08 97.3 79 20 129/62 (84) 98 09/17/17 00:03 98.1 99 18 143/72 (95) 98 09/16/17 20:09 97.4 86 16 136/66 (89) 97 Result Diagram: 09/14/1791409/16/172119 Objective Remarks GENERAL: This is a well-nourished, well-developed patient, in no apparent distress. SKIN: No rashes, warm and dry HEAD: Atraumatic. Normocephalic. EYES: Pupils equal round and reactive. Extraocular motions intact. No scleral icterus. ENT: Nose without bleeding, or drainage, Airway patent. NECK: Trachea midline. Supple CARDIOVASCULAR: Regular rate and rhythm without murmurs, gallops, or rubs. RESPIRATORY: Fair air entry bilaterally. No wheezes, rales, or rhonchi. GASTROINTESTINAL: Abdomen soft, non-tender, nondistended. Positive bowel sounds MUSCULOSKELETAL: Extremities without clubbing, cyanosis, or edema. Pedal pulses appreciated NEUROLOGICAL: Awake and alert. Moves all extremity. Normal speech.no focal neurological deficit Procedures Intraarticular steroid injection right hip A/P Problem List: (1) Inability to ambulate due to right hip ICD Code: R26.2 - Difficulty in walking, not elsewhere classified Status: Acute Assessment and Plan 09/17: awaiting placement, discussed with telephonic case manager Inability to ambulate Severe right lower extremity pain. Likely secondary to osteoarthritis. This pain was masked previously by her chronic pain meds and injections that she was receiving for her back and neck pains. -Improved status post intra-articular steroid injection. Continue pain management with Lortab and morphine. Follow-up PT recommends rehabilitation Clinical evidence of dehydration/poor oral intake in the past 2 days. Improved restart diuretics. We'll continue to monitor repeat BMP and CK patient refused Infiltrate left lung base. Patient without symptoms of pneumonia. Outpatient follow-up Hallucinations. Seroquel started cleared for discharge by psychiatry Severe aortic stenosis status post bovine aortic valve replacement in December 2016. Left heart catheter and SPECT perfusion scans previously done did not reveal any evidence of coronary artery disease. Right heart failure. Currently being investigated for possible sleep apnea. Hypertension Hyperlipidemia Obesity TIA Chronic anticoagulation on Xarelto -Stable continue outpatient medications as appropriate Kenny Becker MD Sep 17, 2017 16:07
--- NOTE | 2017-09-17 16:08 | HHI.DS ---
Discharge Summary Admission Date Sep 13, 2017 at 09:48 Discharge Date: Oct 21, 2017 Admitting Diagnosis right leg pain, inability to ambulate (1) Inability to ambulate due to right hip ICD Code: R26.2 - Difficulty in walking, not elsewhere classified Status: Acute Procedures Intraarticular steroid injection right hip Brief History - From Admission History from patient, ER physician communication, and review of medical records. 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 cannot walk because of pain in right hip and rest of the legs certain parts are also painful - started wednesday came to ER on 08/24 for similar symptoms, but never improved and wednesday had apt with doctors and used her cane then instead of her regular 4 wire wheeler pcp gave her referral to dr charles munoz- appt with him will be Oct see pain management doc for back and neck pains, sometimes get injections to lower back no inciting factors she could remember no fever no coldness or numbness to the leg on xarelto for DVT - bilateral LE and left UE upon further questioning, patient stated that starting Wednesday she really was on her recliner all day long. She had just wasn't herself out of the recliner chair and crawl to get things done at home. At around Wednesday morning, the son came to visit her and found her on the floor. She denies falling down or hitting her head. But reports that she has been sliding herself down from the recliner to go to bathroom. By 3 AM on Wednesday today, son was called because of life alert had called him. They are unsure whether she pressed the life alert or it accidentally was pressed as she was crawling. When the ambulance came, patient was conversing with the ambulance personnel through the window. She stated she was on naked and wanted to go to shower before she left them in to see her. Patient is noted to have dried blood all around her tongue and teeth. She reports this is from dehydration. Denies any seizure activity or syncopal episodes. On review of medical records, patient did have prior history of syncope in May 2017. She had an appointment with her farm equipment maintenance supervisor on September 10, 2017. Son at the bedside stated that a few months ago, patient was told not to drive by her farm equipment maintenance supervisor for 2 weeks or so. But he did clear her now to be able to drive. The cardiology notes from September 10, 2017 reviewed. Apart from the above, patient denies any recent fevers/shortness of breath/ nausea/vomiting/diarrhea/urinary burning or pain on urination. She denies any hematemesis/hematochezia/melena/hematuria. CBC/BMP: 09/14/17 0915 09/16/170 Significant Findings Laboratory Tests Test 09/16/17 21:20 Blood Urea Nitrogen 31 MG/DL (7-18) Random Glucose 118 MG/DL (74-106) Estimat Glomerular Filtration Rate 58 ML/MIN (>89) PE at Discharge GENERAL: This is a well-nourished, well-developed patient, in no apparent distress. SKIN: No rashes, warm and dry HEAD: Atraumatic. Normocephalic. EYES: Pupils equal round and reactive. Extraocular motions intact. No scleral icterus. ENT: Nose without bleeding, or drainage, Airway patent. NECK: Trachea midline. Supple CARDIOVASCULAR: Regular rate and rhythm without murmurs, gallops, or rubs. RESPIRATORY: Fair air entry bilaterally. No wheezes, rales, or rhonchi. GASTROINTESTINAL: Abdomen soft, non-tender, nondistended. Positive bowel sounds MUSCULOSKELETAL: Extremities without clubbing, cyanosis, or edema. Pedal pulses appreciated NEUROLOGICAL: Awake and alert. Moves all extremity. Normal speech.no focal neurological deficit Hospital Course Inability to ambulate Severe right lower extremity pain. Likely secondary to osteoarthritis. This pain was masked previously by her chronic pain meds and injections that she was receiving for her back and neck pains. -Improved status post intra-articular steroid injection. Continue pain management with Lortab and morphine. Follow-up PT recommends rehabilitation Clinical evidence of dehydration/poor oral intake in the past 2 days. Improved restart diuretics. We'll continue to monitor repeat BMP and CK patient refused Infiltrate left lung base. Patient without symptoms of pneumonia. Outpatient follow-up Hallucinations. Seroquel started cleared for discharge by psychiatry Severe aortic stenosis status post bovine aortic valve replacement in December 2016. Left heart catheter and SPECT perfusion scans previously done did not reveal any evidence of coronary artery disease. Right heart failure. Currently being investigated for possible sleep apnea. Hypertension Hyperlipidemia Obesity TIA Chronic anticoagulation on Xarelto -Stable continue outpatient medications as appropriate [id number] encounter performed with the patient on discharge day, as well as physical exam, summary of hospitalization course and postdischarge plan has been D/W the patient. D/W nurse D/W casework manager. Discharge medications reviewed and printed and signed, post discharge follow up visit with PCP and other specialist as well as Brief hospital course and discharge summary has been placed. addendum: initially this discharge summery prepared on 09/17 , however pt was discharged practically on 09/21 Pt Condition on Discharge: Stable Discharge Disposition: Discharge to SNF Discharge Time: > 30 minutes Discharge Instructions DIET: Follow Instructions for: Heart Healthy Diet Activities you can perform: Regular-No Restrictions Follow up Referrals: Orthopedics - 10/08/17 with Charles Hagen MD PCP Follow-up - 1 Week New Medications: Ropinirole (Requip) 5 Mg Tab 5 MG PO BID for RLS, #60 TAB 0 Refills Magnesium Oxide (Magnesium Oxide) 400 Mg Tab 400 MG PO BID@1100,1600 for Electrolyte Replacement, #60 TAB Ondansetron Odt (Ondansetron Odt) 4 Mg Tab 4 MG PO Q8HR PRN for NAUSEA OR VOMITING, #12 TAB Quetiapine (Seroquel) 25 Mg Tab 12.5 MG PO HS for Control Mood Swing, #30 TAB Continued Medications: Aspirin DR (Caitlin Aspirin EC Low Dose) 81 Mg Tabdr 81 MG PO DAILY for Prevent Blood Clot, #30 TAB (This prescription has been renewed) Atorvastatin (Lipitor) 40 Mg Tab 40 MG PO HS for Cholesterol Management, #30 TAB 0 Refills (This prescription has been renewed) Bumetanide (Bumetanide) 1 Mg Tab 1 MG PO DAILY for CHF, #30 TAB 0 Refills (This prescription has been renewed) Fluticasone Nasal [place] (Flonase Nasal [place]) 50 Mcg/Act [place] 2 SPRAY EACH NARE DAILY for Allergies, #1 BOTTLE 0 Refills (This prescription has been renewed) Hydrocodone-Acetaminophen (Roselle) 10-325 Mg Tab 1 TAB PO Q6H PRN for PAIN, #12 TAB 0 Refills (This prescription has been renewed ) Metoprolol Tartrate (Metoprolol Tartrate) 25 Mg Tab 25 MG PO BID for Blood Pressure Management, #60 TAB 0 Refills (This prescription has been renewed) Pantoprazole (Protonix) 40 Mg Tab 40 MG PO DAILY for Reflux, #30 TAB 0 Refills Potassium Chloride ER (Potassium Chloride ER) 10 Meq Tab 20 MEQ PO BID for Electrolyte Replacement, #60 TAB 0 Refills (This prescription has been renewed) Rivaroxaban (Xarelto) 20 Mg Tab 20 MG PO DAILY for Blood Clot Prevention for 30 Days, #30 TAB 0 Refills (This prescription has been renewed) Spironolactone (Aldactone) 50 Mg Tab 50 MG PO BID for CHF, #60 TAB 0 Refills (This prescription has been renewed) Discontinued Medications: Magnesium (Magnesium) 250 Mg Tab 250 MG PO BID for Nutritional Supplement Ondansetron (Zofran) 8 Mg Tab 8 MG PO TID PRN for NAUSEA OR VOMITING, TAB 0 Refills Ropinirole (Requip) 5 Mg Tab 5 MG PO TID, #90 TAB 0 Refills Kenny Becker MD Sep 17, 2017 16:08
[2017-09-17] MEDS: MORPHINE SULFATE 2 MG/ML INJ IV PUSH PRN (16:27)
[2017-09-17 20:28] VITALS: BP 114/60; PULSE 94; RESP 15; TEMP 98.2; O2SAT 98
[2017-09-17] MEDS: QUEtiapine FUMARATE 25 MG TAB PO SCH (21:13)
[2017-09-17] MEDS: ATORVASTATIN 40 MG TAB PO SCH (21:16)
[2017-09-18 00:08] VITALS: BP 119/71; PULSE 77; RESP 17; TEMP 97.7; O2SAT 96
[2017-09-18 04:24] VITALS: BP 104/54; PULSE 70; RESP 17; TEMP 97.5; O2SAT 98
[2017-09-18] MEDS: ACETAMINOPHEN/HYDROcodone 325 MG/10 MG TAB PO PRN ×2 (04:31→20:18)
[2017-09-18 08:35] VITALS: BP 116/67; PULSE 87; RESP 24; TEMP 97.4; O2SAT 95
[2017-09-18] MEDS ORDERED: SERO25TA PO (08:53)
[2017-09-18] MEDS: DOCUSATE SODIUM 50 MG/SENNA 8.6 MG TAB PO SCH ×2 (09:50→11:34)
[2017-09-18] MEDS: ASPIRIN EC 81 MG TABEC PO SCH ×2 (09:50→11:34)
[2017-09-18] MEDS: SPIRONOLACTONE 50 MG TAB PO SCH ×2 (09:50→11:34)
[2017-09-18] MEDS: BUMETANIDE 1 MG TAB PO SCH ×2 (09:51→11:34)
[2017-09-18] MEDS: METOPROLOL TARTRATE 25 MG TAB PO SCH ×2 (09:52→11:34)
[2017-09-18] MEDS: SODIUM CHLORIDE 0.9% FLUSH 10 ML FLUSH IV FLUSH SCH ×2 (09:52→11:33)
[2017-09-18] MEDS: RIVAROXABAN 20 MG TAB PO SCH ×2 (09:52→11:35)
[2017-09-18] MEDS: MAGNESIUM OXIDE 400 MG TAB PO SCH ×2 (11:00→16:00)
[2017-09-18] MEDS ORDERED: HALOPERIDOL LACTATE 5 MG/ML AMP IM PRN (11:45)
--- NOTE | 2017-09-18 12:36 | HHI.PR ---
Subjective Remarks Follow up for hip pain. The patient reports her pain is improving. She wants to be discharged. She has no other medical complaints at this time. Objective Vitals Vital Signs Date Time Temp Pulse Resp B/P (MAP) Pulse Ox O2 Delivery O2 Flow Rate FiO2 09/18/17 08:35 97.4 87 24 116/67 (83) 95 09/18/17 04:24 97.5 70 17 104/54 (71) 98 09/18/17 00:08 97.7 77 17 119/71 (87) 96 09/17/17 20:28 98.2 94 15 114/60 (78) 98 09/17/17 15:35 98.6 73 18 127/69 (88) 96 Result Diagram: 09/14/1791409/16/172119 Imaging Last Impressions Therapeutic Injection 09/14/17 0000 Signed Impressions: Service Date/Time: Thursday, September 14, 2017 16:47 - CONCLUSION: Uncomplicated therapeutic injection performed under fluoroscopic guidance. Ventura Sheppard MD Aorta CTA 09/13/1747 Signed Impressions: Service Date/Time: Wednesday, September 13, 2017 08:46 - CONCLUSION: 1. The thoracic and abdominal aorta are normal in caliber. There is no evidence of dissection. 2. The iliac vessels are widely patent. 3. Incidental 3.6 cm simple cyst arising from the left kidney. 4. Degenerative changes in the thoracic spine. 5. Postsurgical changes in the lumbar spine. Ventura Sheppard MD Lower Extremity Ultrasound 09/13/1726 Signed Impressions: Service Date/Time: Wednesday, September 13, 2017 07:26 - CONCLUSION: Normal examination. Jeremy Andino Jr., MD Chest X-Ray 09/13/17 0625 Signed Impressions: Service Date/Time: Wednesday, September 13, 2017 06:29 - CONCLUSION: Minimal infiltrate left lung base. Right lung remains clear . Jabier Pringle MD Pelvis X-Ray 09/13/17 0000 Signed Impressions: Service Date/Time: Wednesday, September 13, 2017 14:58 - CONCLUSION: Degenerative changes about both hips. Jaden Sheppard MD FACR Femur X-Ray 09/13/17 0000 Signed Impressions: Service Date/Time: Wednesday, September 13, 2017 14:59 - CONCLUSION: Negative for fracture.. Jaden Sheppard MD FACR Objective Remarks GENERAL: Well-nourished, well-developed elderly female patient in [facility]. SKIN: Warm and dry. No rash. HEENT: Normocephalic. Atraumatic.Pupils equal and round. Mucous membranes pink and moist. CARDIOVASCULAR: Regular rate and rhythm. S1, S2 noted. No murmur appreciated. RESPIRATORY: No accessory muscle use. Clear to auscultation. Breath sounds equal bilaterally. GASTROINTESTINAL: Abdomen soft, non-tender, nondistended. Normoactive bowel sounds x4. MUSCULOSKELETAL: No obvious deformities. Extremities without clubbing, cyanosis , or edema. NEUROLOGICAL: Awake and alert. No obvious cranial nerve deficits. Motor grossly within normal limits. Normal speech. PSYCHIATRIC: Appropriate mood and affect; insight and judgment fair. Procedures Intraarticular steroid injection right hip Medications and IVs Current Medications Medications (Trade) Dose Ordered Sig/Cassie Route Start Time Stop Time Status Last Admin (NS Flush) 2 ml UNSCH PRN IV FLUSH 09/13/17 10:00 (NS Flush) 2 ml BID IV FLUSH 09/13/17 21:00 09/18/17 09:52 (Narcan Inj) 0.4 mg UNSCH PRN IV PUSH 09/13/17 10:00 (Morphine Inj) 2 mg Q3H PRN IV PUSH 09/13/17 10:30 09/17/17 16:27 (Warren 10-325 Mg) 1 tab Q4H PRN PO 09/13/17 10:30 09/18/17 04:31 (Ecotrin Ec) 81 mg DAILY PO 09/14/17 09:00 09/18/17 09:50 (Lipitor) 40 mg HS PO 09/13/17 21:00 09/17/17 21:16 (Lopressor) 25 mg BID PO 09/13/17 21:00 09/18/17 09:52 (Xarelto) 20 mg DAILY PO 09/14/17 09:00 09/18/17 09:52 (Mag-Ox) 400 mg BID@1100,1600 PO 09/13/17 16:00 09/17/17 16:00 (Zofran Odt) 8 mg TID PRN PO 09/13/17 13:00 (Requip) 5 mg TID PO 09/13/17 13:00 09/18/17 09:49 (Jyoti-Colace) 1 tab BID PO 09/14/17 09:00 09/18/17 09:50 (Milk Of Magnesia Liq) 30 ml Q12H PRN PO 09/14/17 09:00 (Senokot) 17.2 mg Q12H PRN PO 09/14/17 08:30 (Dulcolax Supp) 10 mg DAILY PRN RECTAL 09/14/17 09:00 (Lactulose Liq) 30 ml DAILY PRN PO 09/14/17 09:00 (Bumetanide) 1 mg DAILY PO 09/15/17 17:15 09/18/17 09:51 (Aldactone) 50 mg BID PO 09/15/17 21:00 09/18/17 09:50 (Pill Splitter) 1 ea UNSCH PRN OTHER 09/16/17 11:45 (SEROquel) 25 mg HS PO 09/17/17 21:00 09/17/17 21:13 (Haldol Inj) 2 mg Q6H PRN IM 09/18/17 11:45 A/P Problem List: (1) Inability to ambulate due to right hip ICD Code: R26.2 - Difficulty in walking, not elsewhere classified Status: Acute Assessment and Plan 82-year-old female with history of severe aortic stenosis s/p bovine AVR [id number] , CHF, HTN, chronic LE edema, HLD, obesity, TIA, fibromyalgia, presents with inability to ambulate secondary to right hip pain Inability to ambulate with Severe RLE pain: suspect secondary to osteoarthritis. This pain was masked previously by her chronic pain meds and injections that she was receiving for her back and neck pains. -Pelvis and femur xrays reviewed, shows advanced osteoarthritis, no fracture -Doppler U/S negative for DVT -Symptoms improved status post intra-articular steroid injection on 09/14. -Continue pain management with Lortab and morphine. -Continue PT, recommends rehabilitation Dehydration/poor oral intake: over the past 2 days. -Oral intake improved -restart diuretics. -Continue to monitor repeat BMP and CK, much improved Infiltrate left lung base: seen on CXR. Patient without symptoms of pneumonia. 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 Salazar, if symptoms worsen, may benefit from a few days admission to med/ psych -Patient stable for now CHF with Severe Aortic Stenosis s/p Bovine AVR: Dec 2016 -chronic, stable, continue to monitor -continue home meds including spironolactone, Bumex, BB, statin HTN/HLD: chronic -continue patient's home meds including lipitor, metoprolol TIA, Chronic anticoagulation on Xarelto: -Stable, continue Xarelto DVT Prophylaxis: on Xarelto Discharge Planning Discharge pending acceptance to SNF. Case management to assist with discharge planning. Annie Yanez PA-C Sep 18, 2017 12:36 pm
[2017-09-18 19:21] VITALS: BP 135/80; PULSE 89; RESP 18; TEMP 98.4; O2SAT 97
[2017-09-18] MEDS: QUEtiapine FUMARATE 25 MG TAB PO SCH (20:15)
[2017-09-18] MEDS: ATORVASTATIN 40 MG TAB PO SCH (20:15)
[2017-09-18 23:28] VITALS: BP 178/95; PULSE 113; RESP 20; TEMP 98.2; O2SAT 96
[2017-09-19] VITALS (7 sets, daily range): BP systolic 117–156; BP diastolic 65–94; PULSE 76–121; RESP 18–20; TEMP 97.8–98.8; O2SAT 95–99
[2017-09-19] MEDS: MORPHINE SULFATE 2 MG/ML INJ IV PUSH PRN (00:08)
[2017-09-19] MEDS: ACETAMINOPHEN/HYDROcodone 325 MG/10 MG TAB PO PRN ×2 (01:35→10:23)
[2017-09-19] MEDS: DOCUSATE SODIUM 50 MG/SENNA 8.6 MG TAB PO SCH ×2 (09:00→21:44)
[2017-09-19] MEDS: RIVAROXABAN 20 MG TAB PO SCH (10:12)
[2017-09-19] MEDS: SPIRONOLACTONE 50 MG TAB PO SCH ×2 (10:12→21:44)
[2017-09-19] MEDS: METOPROLOL TARTRATE 25 MG TAB PO SCH ×2 (10:12→21:44)
[2017-09-19] MEDS: ASPIRIN EC 81 MG TABEC PO SCH (10:12)
[2017-09-19] MEDS: SODIUM CHLORIDE 0.9% FLUSH 10 ML FLUSH IV FLUSH SCH ×2 (10:16→21:43)
--- NOTE | 2017-09-19 10:56 | HHI.PR ---
Subjective Remarks Follow up on patient with hip pain. Patient seen and examined. She reports her hip pain is good this morning. She denies any fever or chills. Denies any chest pain or dyspnea. Denies any N/V or abdominal pain. Urinating without any difficulty. (+)BM yesterday. She states she feels anxious about being kept behind a curtain. She denies any issues with anxiety prior to admission. Objective Vitals Vital Signs Date Time Temp Pulse Resp B/P (MAP) Pulse Ox O2 Delivery O2 Flow Rate FiO2 09/19/17 08:01 97.8 121 20 156/94 (114) 96 09/19/17 05:21 97.9 112 20 148/70 (96) 95 09/19/17 01:55 119/72 (88) 99 09/18/17 23:28 98.2 113 20 178/95 (122) 96 09/18/17 19:21 98.4 89 18 135/80 (98) 97 Result Diagram: 09/16/172119 Imaging Last Impressions Therapeutic Injection 09/14/17 0000 Signed Impressions: Service Date/Time: Thursday, September 14, 2017 16:47 - CONCLUSION: Uncomplicated therapeutic injection performed under fluoroscopic guidance. Ventura Sheppard MD Aorta CTA 09/13/17 0647 Signed Impressions: Service Date/Time: Wednesday, September 13, 2017 08:46 - CONCLUSION: 1. The thoracic and abdominal aorta are normal in caliber. There is no evidence of dissection. 2. The iliac vessels are widely patent. 3. Incidental 3.6 cm simple cyst arising from the left kidney. 4. Degenerative changes in the thoracic spine. 5. Postsurgical changes in the lumbar spine. Ventura Sheppard MD Lower Extremity Ultrasound 09/13/1726 Signed Impressions: Service Date/Time: Wednesday, September 13, 2017 07:26 - CONCLUSION: Normal examination. Jeremy Andino Jr., MD Chest X-Ray 09/13/1725 Signed Impressions: Service Date/Time: Wednesday, September 13, 2017 06:29 - CONCLUSION: Minimal infiltrate left lung base. Right lung remains clear . Jabier Pringle MD Pelvis X-Ray 09/13/17 0000 Signed Impressions: Service Date/Time: Wednesday, September 13, 2017 14:58 - CONCLUSION: Degenerative changes about both hips. Jaden Sheppard MD FACR Femur X-Ray 09/13/17 0000 Signed Impressions: Service Date/Time: Wednesday, September 13, 2017 14:59 - CONCLUSION: Negative for fracture.. Jaden Sheppard MD FACR Objective Remarks GENERAL: Well-nourished, well-developed elderly female patient in NAD. Awake and alert. Sitting on edge of the bed. SKIN: Warm and dry. No rash. HEENT: Normocephalic. Atraumatic. EOMI. Mucous membranes pink and moist. CARDIOVASCULAR: Tachycardic. S1, S2 noted. No murmur appreciated. RESPIRATORY: Nonlabored. Clear to auscultation. Breath sounds equal bilaterally. GASTROINTESTINAL: Abdomen soft, non-tender, nondistended. Normoactive bowel sounds x4. MUSCULOSKELETAL: No obvious deformities. Extremities without clubbing, cyanosis , or edema. NEUROLOGICAL: Awake and alert. No obvious cranial nerve deficits. Motor grossly within normal limits. Normal speech. PSYCHIATRIC: Appropriate mood and affect; insight and judgment fair. Procedures Intraarticular steroid injection right hip Medications and IVs Current Medications Medications (Trade) Dose Ordered Sig/Cassie Route Start Time Stop Time Status Last Admin (NS Flush) 2 ml UNSCH PRN IV FLUSH 09/13/17 10:00 (NS Flush) 2 ml BID IV FLUSH 09/13/17 21:00 09/19/17 10:16 (Narcan Inj) 0.4 mg UNSCH PRN IV PUSH 09/13/17 10:00 (Morphine Inj) 2 mg Q3H PRN IV PUSH 09/13/17 10:30 09/19/17 00:08 ([place] 10-325 Mg) 1 tab Q4H PRN PO 09/13/17 10:30 09/19/17 10:23 (Ecotrin Ec) 81 mg DAILY PO 09/14/17 09:00 09/19/17 10:12 (Lipitor) 40 mg HS PO 09/13/17 21:00 09/18/17 20:15 (Lopressor) 25 mg BID PO 09/13/17 21:00 09/19/17 10:12 (Xarelto) 20 mg DAILY PO 09/14/17 09:00 09/19/17 10:12 (Mag-Ox) 400 mg BID@1100,1600 PO 09/13/17 16:00 09/17/17 16:00 (Zofran Odt) 8 mg TID PRN PO 09/13/17 13:00 (Requip) 5 mg TID PO 09/13/17 13:00 09/19/17 10:13 (Jyoti-Colace) 1 tab BID PO 09/14/17 09:00 09/18/17 09:50 (Milk Of Magnesia Liq) 30 ml Q12H PRN PO 09/14/17 09:00 (Senokot) 17.2 mg Q12H PRN PO 09/14/17 08:30 (Dulcolax Supp) 10 mg DAILY PRN RECTAL 09/14/17 09:00 (Lactulose Liq) 30 ml DAILY PRN PO 09/14/17 09:00 (Bumetanide) 1 mg DAILY PO 09/15/17 17:15 09/18/17 09:51 (Aldactone) 50 mg BID PO 09/15/17 21:00 09/19/17 10:12 (Pill Splitter) 1 ea UNSCH PRN OTHER 09/16/17 11:45 (SEROquel) 25 mg HS PO 09/17/17 21:00 09/18/17 20:15 (Haldol Inj) 2 mg Q6H PRN IM 09/18/17 11:45 A/P Problem List: (1) Inability to ambulate due to right hip ICD Code: R26.2 - Difficulty in walking, not elsewhere classified Status: Acute Assessment and Plan 82-year-old female with history of severe aortic stenosis s/p bovine AVR [id number] , CHF, HTN, chronic LE edema, HLD, obesity, TIA, fibromyalgia, presents with inability to ambulate secondary to right hip pain Inability to ambulate with Severe RLE pain: suspect secondary to osteoarthritis. This pain was masked previously by her chronic pain meds and injections that she was receiving for her back and neck pains. -Pelvis and femur xrays reviewed, shows advanced osteoarthritis, no fracture -Doppler U/S negative for DVT -Symptoms improved status post intra-articular steroid injection on 09/14. -Continue pain management with Lortab and morphine. -Continue PT, recommends rehabilitation -patient discharged, awaiting insurance authorization/SNF placement at [facility]/poor oral intake: -Oral intake improved -resumed on diuretics. -Continue to monitor - BUN 31 on 09/16. Repeat BMP. Infiltrate left lung base: seen on CXR. Patient without symptoms of pneumonia. 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 Salazar, if symptoms worsen, may benefit from a few days admission to med/ psych -Patient stable for now CHF with Severe Aortic Stenosis s/p Bovine AVR: Dec 2016 -chronic, stable, continue to monitor -continue home meds including spironolactone, Bumex, BB, statin - patient refusing meds yesterday, agreeable to taking today Tachycardia -secondary to medication noncompliance -patient agreed to taking BB today -continue to monitor HR HTN/HLD: chronic -continue patient's home meds including lipitor, metoprolol TIA, Chronic anticoagulation on Xarelto: -Stable, continue Xarelto DVT Prophylaxis: on Xarelto Discharge Planning Discharge pending acceptance to SNF/discussed with CM - awaiting insurance authorization Harini Hinkle Sep 19, 2017 10:56
[2017-09-19 12:24] LABS: BICARBONATE 27.3 MEQ/L (21.0-32.0); POTASSIUM 3.6 MEQ/L (3.5-5.1)
[2017-09-19] MEDS: MAGNESIUM OXIDE 400 MG TAB PO SCH ×2 (13:20→18:00)
[2017-09-19] MEDS: ATORVASTATIN 40 MG TAB PO SCH (21:44)
[2017-09-19] MEDS: QUEtiapine FUMARATE 25 MG TAB PO SCH (21:44)
[2017-09-20 03:55] VITALS: BP 119/58; PULSE 65; RESP 18; TEMP 98; O2SAT 99
[2017-09-20 07:05] VITALS: BP 110/59; PULSE 73; RESP 20; TEMP 98; O2SAT 100
--- NOTE | 2017-09-20 09:39 | HHI.PYPN ---
Subjective Remarks The patient was seen today for psychiatric reevaluation, the patient was found in her room texting her cell phone. She was calm, cooperative, a little bit irritable. She says that she is upset because she is still here in the hospital and she wants to go back home. Patient reports feeling much better, he denies any episodes of confusion, psychosis, she denies depression, anxiety, she denies suicidal and homicidal ideation, she denies visual and auditory hallucinations. He is fully oriented 3. No fluctuation of consciousness, no attention deficit person. As per conversation with nurse in charge, the patient still having episodic confusion and paranoia at night. Patient is compliant with medications,and medical side effects. Review of Systems Except as stated in HPI: all other systems reviewed are Neg Mental Status Examination Appearance: Appropriate Consciousness: Alert Orientation: x4 Motor Activity: Normal gait Speech: Unremarkable Language: Adequate Fund of Knowledge: Adequate Attention and Concentration: Adequate Memory: Unremarkable Mood: Appropriate Affect: Appropriate Thought Process & Associations: Intact Thought Content: Appropriate, Hallucinations Hallucination Type: None Delusion Type: None Suicidal Ideation: No Suicidal Plan: No Suicidal Intention: No Homicidal Ideation: No Homicidal Plan: No Homicidal Intention: No Insight: Adequate Judgment: Adequate Results Labs Test 09/19/17 11:30 Blood Urea Nitrogen 26 MG/DL Creatinine 0.96 MG/DL Random Glucose 125 MG/DL Calcium Level 9.8 MG/DL Sodium Level 138 MEQ/L Potassium Level 3.6 MEQ/L Chloride Level 102 MEQ/L Carbon Dioxide Level 27.3 MEQ/L Anion Gap 9 MEQ/L Estimat Glomerular Filtration Rate 56 ML/MIN Vitals/IOs Vital Signs Date Time Temp Pulse Resp B/P (MAP) Pulse Ox O2 Delivery O2 Flow Rate FiO2 09/20/17 07:05 98.0 73 20 110/59 (76) 100 Assessment & Plan Problem List: (1) Unspecified psychosis ICD Codes: F29 - Unspecified psychosis not due to a substance or known physiological condition Assessment & Plan: On psychiatric evaluation today the patient denies depression, denies anxiety, denies dayana, and she is not actively psychotic. Patient denies having any episodes of visual hallucinations in the last 24 hours. As per nurses the patient becomes a little paranoid and agitated especially in the evening. I think that this could be part of owning due to delirium. Continue Seroquel 25 mg at bedtime. Patient does not meet criteria for involuntary psychiatric admission, but I strongly recommend to monitor closely perceptual disturbances in outpatient basis. Psychoeducation provided. Assessment & Plan Estimated LOS: days Justification for Cont. Inpt. Patient does not meet criteria for involuntary psychiatric admission at this moment. Scar Salazar MD Sep 20, 2017 09:39
[2017-09-20] MEDS: METOPROLOL TARTRATE 25 MG TAB PO SCH ×2 (10:12→20:23)
[2017-09-20] MEDS: SPIRONOLACTONE 50 MG TAB PO SCH ×2 (10:12→20:23)
[2017-09-20] MEDS: RIVAROXABAN 20 MG TAB PO SCH (10:12)
[2017-09-20] MEDS: BUMETANIDE 1 MG TAB PO SCH (10:12)
[2017-09-20] MEDS: ASPIRIN EC 81 MG TABEC PO SCH (10:12)
[2017-09-20] MEDS: DOCUSATE SODIUM 50 MG/SENNA 8.6 MG TAB PO SCH ×2 (10:13→20:23)
[2017-09-20] MEDS: SODIUM CHLORIDE 0.9% FLUSH 10 ML FLUSH IV FLUSH SCH ×2 (10:14→20:33)
--- NOTE | 2017-09-20 10:36 | HHI.PR ---
Subjective Remarks Follow up on patient with hip pain secondary to OA. Patient seen and examined. Patient reports she is feeling well. She slept well last night. She denies any complaints of pain at this time. She denies any other acute medical complaints. She is hoping to go to SNF facility today. Patient discharged on 09/16/17 - discharge held pending SNF placement/insurance authorization. No significant interval change. Objective Vitals Vital Signs Date Time Temp Pulse Resp B/P (MAP) Pulse Ox O2 Delivery O2 Flow Rate FiO2 09/20/17 07:05 98.0 73 20 110/59 (76) 100 09/20/17 03:55 98.0 65 18 119/58 (78) 99 09/19/17 23:00 98.2 76 18 131/65 (87) 99 09/19/17 21:26 98.8 78 18 117/65 (82) 97 09/19/17 16:34 97.9 80 18 128/68 (88) 96 09/19/17 12:09 97.8 84 20 131/71 (91) 96 I/O 09/19/17 09/19/17 09/19/17 09/20/17 09/20/17 09/20/17 07:00 15:00 23:00 07:00 15:00 23:00 Intake Total 720 ml Output Total 600 ml Balance 120 ml Intake Oral 720 ml Output Urine Total 600 ml Result Diagram: 09/19/17 1130 Imaging Last Impressions Therapeutic Injection 09/14/17 0000 Signed Impressions: Service Date/Time: Thursday, September 14, 2017 16:47 - CONCLUSION: Uncomplicated therapeutic injection performed under fluoroscopic guidance. Ventura Sheppard MD Aorta CTA 09/13/17 0647 Signed Impressions: Service Date/Time: Wednesday, September 13, 2017 08:46 - CONCLUSION: 1. The thoracic and abdominal aorta are normal in caliber. There is no evidence of dissection. 2. The iliac vessels are widely patent. 3. Incidental 3.6 cm simple cyst arising from the left kidney. 4. Degenerative changes in the thoracic spine. 5. Postsurgical changes in the lumbar spine. Ventura Sheppard MD Lower Extremity Ultrasound 09/13/17 0626 Signed Impressions: Service Date/Time: Wednesday, September 13, 2017 07:26 - CONCLUSION: Normal examination. Jeremy Andino Jr., MD Chest X-Ray 09/13/17 0625 Signed Impressions: Service Date/Time: Wednesday, September 13, 2017 06:29 - CONCLUSION: Minimal infiltrate left lung base. Right lung remains clear . Jabier Pringle MD Pelvis X-Ray 09/13/17 0000 Signed Impressions: Service Date/Time: Wednesday, September 13, 2017 14:58 - CONCLUSION: Degenerative changes about both hips. Jaden Sheppard MD FACR Femur X-Ray 09/13/17 0000 Signed Impressions: Service Date/Time: Wednesday, September 13, 2017 14:59 - CONCLUSION: Negative for fracture.. Jaden Sheppard MD FACR Objective Remarks GENERAL: Well-nourished, well-developed elderly female patient in NAD. Awake and alert. Sitting on edge of the bed eating breakfast. SKIN: Warm and dry. HEENT: Normocephalic. Atraumatic. EOMI. Mucous membranes pink and moist. CARDIOVASCULAR: Regular rate and rhythm. S1, S2 noted. No murmur appreciated. RESPIRATORY: Nonlabored. Clear to auscultation. Breath sounds equal bilaterally. GASTROINTESTINAL: Abdomen soft, non-tender, nondistended. Normoactive bowel sounds x4. MUSCULOSKELETAL: No obvious deformities. Extremities without clubbing or cyanosis. (+)nonpitting dependent edema BLEs. NEUROLOGICAL: Awake and alert. No obvious cranial nerve deficits. Motor grossly within normal limits. Normal speech. PSYCHIATRIC: Appropriate mood and affect; insight and judgment fair. Procedures Intraarticular steroid injection right hip Medications and IVs Current Medications Medications (Trade) Dose Ordered Sig/Cassie Route Start Time Stop Time Status Last Admin (NS Flush) 2 ml UNSCH PRN IV FLUSH 09/13/17 10:00 (NS Flush) 2 ml BID IV FLUSH 09/13/17 21:00 09/20/17 10:14 (Narcan Inj) 0.4 mg UNSCH PRN IV PUSH 09/13/17 10:00 (Morphine Inj) 2 mg Q3H PRN IV PUSH 09/13/17 10:30 09/19/17 00:08 ([place] 10-325 Mg) 1 tab Q4H PRN PO 09/13/17 10:30 09/19/17 10:23 (Ecotrin Ec) 81 mg DAILY PO 09/14/17 09:00 09/20/17 10:12 (Lipitor) 40 mg HS PO 09/13/17 21:00 09/19/17 21:44 (Lopressor) 25 mg BID PO 09/13/17 21:00 09/20/17 10:12 (Xarelto) 20 mg DAILY PO 09/14/17 09:00 09/20/17 10:12 (Mag-Ox) 400 mg BID@1100,1600 PO 09/13/17 16:00 09/19/17 18:00 (Zofran Odt) 8 mg TID PRN PO 09/13/17 13:00 (Jyoti-Colace) 1 tab BID PO 09/14/17 09:00 09/19/17 21:44 (Milk Of Magnesia Liq) 30 ml Q12H PRN PO 09/14/17 09:00 (Senokot) 17.2 mg Q12H PRN PO 09/14/17 08:30 (Dulcolax Supp) 10 mg DAILY PRN RECTAL 09/14/17 09:00 (Lactulose Liq) 30 ml DAILY PRN PO 09/14/17 09:00 (Bumetanide) 1 mg DAILY PO 09/15/17 17:15 09/20/17 10:12 (Aldactone) 50 mg BID PO 09/15/17 21:00 09/20/17 10:12 (Pill Splitter) 1 ea UNSCH PRN OTHER 09/16/17 11:45 (SEROquel) 25 mg HS PO 09/17/17 21:00 09/19/17 21:44 (Haldol Inj) 2 mg Q6H PRN IM 09/18/17 11:45 (Requip) 5 mg BID PO 09/19/17 21:00 09/20/17 10:11 A/P Problem List: (1) Inability to ambulate due to right hip ICD Code: R26.2 - Difficulty in walking, not elsewhere classified Status: Acute Assessment and Plan 82-year-old female with history of severe aortic stenosis s/p bovine AVR [id number] , CHF, HTN, chronic LE edema, HLD, obesity, TIA, fibromyalgia, presents with inability to ambulate secondary to right hip pain Inability to ambulate with Severe RLE pain: suspect secondary to osteoarthritis. This pain was masked previously by her chronic pain meds and injections that she was receiving for her back and neck pains. -Pelvis and femur xrays reviewed, shows advanced osteoarthritis, no fracture -Doppler U/S negative for DVT -Symptoms improved status post intra-articular steroid injection on 09/14. -Continue pain management with Lortab and morphine. -Continue PT, recommends rehabilitation -patient discharged, awaiting insurance authorization/SNF placement at [facility]. Dehydration/poor oral intake: -Oral intake improved -resumed on diuretics. -Continue to monitor - BUN improved. Infiltrate left lung base: seen on CXR. Patient without symptoms of pneumonia. 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 -Started on seroquel per psychiatry, increased dose to 25mg hs -Cleared by psychiatry for discharge to SNF, does not meet criteria for involuntary psychiatric admit -Patient stable for now CHF with Severe Aortic Stenosis s/p Bovine AVR: Dec 2016 -chronic, stable, continue to monitor -continue home meds including spironolactone, Bumex, BB, statin Tachycardia -secondary to medication noncompliance -resolved HTN/HLD: chronic -continue patient's home meds including lipitor, metoprolol TIA, Chronic anticoagulation on Xarelto: -Stable, continue Xarelto DVT Prophylaxis: on Xarelto Discussed with patient, nursing staff and Dr. Becker Discharge Planning Discharge pending acceptance to SNF/discussed with CM - awaiting insurance authorization Harini Hinkle Sep 20, 2017 10:36
[2017-09-20] MEDS ORDERED: POTA10TA2 PO (10:46)
[2017-09-20] MEDS: MAGNESIUM OXIDE 400 MG TAB PO SCH ×2 (11:00→17:46)
[2017-09-20] MEDS: ACETAMINOPHEN/HYDROcodone 325 MG/10 MG TAB PO PRN ×2 (11:00→20:23)
[2017-09-20 11:55] VITALS: BP 143/68; PULSE 84; RESP 19; TEMP 98; O2SAT 95
[2017-09-20 18:55] VITALS: BP 118/60; PULSE 86; RESP 18; TEMP 98; O2SAT 99
[2017-09-20 19:16] VITALS: BP 121/60; PULSE 84; RESP 18; TEMP 97.5; O2SAT 99
[2017-09-20] MEDS: QUEtiapine FUMARATE 25 MG TAB PO SCH (20:22)
[2017-09-20] MEDS: ATORVASTATIN 40 MG TAB PO SCH (20:22)
[2017-09-20 23:11] VITALS: BP 96/53; PULSE 70; RESP 19; TEMP 97.7; O2SAT 98
[2017-09-21 03:37] VITALS: BP 102/58; PULSE 79; RESP 18; TEMP 98.2; O2SAT 96
[2017-09-21 07:40] VITALS: BP 141/58; PULSE 85; RESP 20; TEMP 97.7; O2SAT 98
[2017-09-21] MEDS: METOPROLOL TARTRATE 25 MG TAB PO SCH (08:13)
[2017-09-21] MEDS: SPIRONOLACTONE 50 MG TAB PO SCH (08:13)
[2017-09-21] MEDS: ASPIRIN EC 81 MG TABEC PO SCH (08:13)
[2017-09-21] MEDS: DOCUSATE SODIUM 50 MG/SENNA 8.6 MG TAB PO SCH (08:13)
[2017-09-21] MEDS: ACETAMINOPHEN/HYDROcodone 325 MG/10 MG TAB PO PRN ×2 (08:13→16:03)
[2017-09-21] MEDS: RIVAROXABAN 20 MG TAB PO SCH (08:14)
[2017-09-21] MEDS: BUMETANIDE 1 MG TAB PO SCH (08:14)
[2017-09-21] MEDS: SODIUM CHLORIDE 0.9% FLUSH 10 ML FLUSH IV FLUSH SCH (08:15)
--- NOTE | 2017-09-21 08:49 | HHI.PR ---
Subjective Remarks Follow up for hip pain, placement pending. The patient wants to be discharged to SNF as soon as possible. She states everything is "just fine". She has no specific medical complaints. Vital signs reviewed and stable. Objective Vitals Vital Signs Date Time Temp Pulse Resp B/P (MAP) Pulse Ox O2 Delivery O2 Flow Rate FiO2 09/21/17 07:40 97.7 85 20 141/58 (85) 98 09/21/17 03:37 98.2 79 18 102/58 (73) 96 09/20/17 23:11 97.7 70 19 96/53 (67) 98 09/20/17 19:16 97.5 84 18 121/60 (80) 99 09/20/17 18:55 98.0 86 18 118/60 (79) 99 09/20/17 11:55 98.0 84 19 143/68 (93) 95 I/O 09/20/17 09/20/17 09/20/17 09/21/17 09/21/17 09/21/17 07:00 15:00 23:00 07:00 15:00 23:00 # Voids 1 Result Diagram: 09/19/17 1130 Imaging Last Impressions Therapeutic Injection 09/14/17 0000 Signed Impressions: Service Date/Time: Thursday, September 14, 2017 16:47 - CONCLUSION: Uncomplicated therapeutic injection performed under fluoroscopic guidance. Ventura Sheppard MD Aorta CTA 09/13/17 0647 Signed Impressions: Service Date/Time: Wednesday, September 13, 2017 08:46 - CONCLUSION: 1. The thoracic and abdominal aorta are normal in caliber. There is no evidence of dissection. 2. The iliac vessels are widely patent. 3. Incidental 3.6 cm simple cyst arising from the left kidney. 4. Degenerative changes in the thoracic spine. 5. Postsurgical changes in the lumbar spine. Ventura Sheppard MD Lower Extremity Ultrasound 09/13/17 0626 Signed Impressions: Service Date/Time: Wednesday, September 13, 2017 07:26 - CONCLUSION: Normal examination. Jeremy Andnio Jr., MD Chest X-Ray 09/13/17 0600 Signed Impressions: Service Date/Time: Wednesday, September 13, 2017 06:29 - CONCLUSION: Minimal infiltrate left lung base. Right lung remains clear . Jabier Pringle MD Pelvis X-Ray 09/13/17 0000 Signed Impressions: Service Date/Time: Wednesday, September 13, 2017 14:58 - CONCLUSION: Degenerative changes about both hips. Jaden Sheppard MD FACR Femur X-Ray 09/13/17 0000 Signed Impressions: Service Date/Time: Wednesday, September 13, 2017 14:59 - CONCLUSION: Negative for fracture.. Jaden Sheppard MD FACR Objective Remarks GENERAL: Well-nourished, well-developed elderly female patient in NAD. SKIN: Warm and dry. No rash. HEENT: Normocephalic. Atraumatic.Pupils equal and round. Mucous membranes pink and moist. CARDIOVASCULAR: Regular rate and rhythm. S1, S2 noted. No murmur appreciated. RESPIRATORY: No accessory muscle use. Clear to auscultation. Breath sounds equal bilaterally. GASTROINTESTINAL: Abdomen soft, non-tender, nondistended. Normoactive bowel sounds x4. MUSCULOSKELETAL: No obvious deformities. Extremities without clubbing, cyanosis , or edema. NEUROLOGICAL: Awake and alert. No obvious cranial nerve deficits. Motor grossly within normal limits. Normal speech. PSYCHIATRIC: Appropriate mood and affect; insight and judgment fair. Procedures Intraarticular steroid injection right hip Medications and IVs Current Medications Medications (Trade) Dose Ordered Sig/Cassie Route Start Time Stop Time Status Last Admin (NS Flush) 2 ml UNSCH PRN IV FLUSH 09/13/17 10:00 (NS Flush) 2 ml BID IV FLUSH 09/13/17 21:00 09/21/17 08:15 (Narcan Inj) 0.4 mg UNSCH PRN IV PUSH 09/13/17 10:00 (Morphine Inj) 2 mg Q3H PRN IV PUSH 09/13/17 10:30 09/19/17 00:08 ([place] 10-325 Mg) 1 tab Q4H PRN PO 09/13/17 10:30 09/21/17 08:13 (Ecotrin Ec) 81 mg DAILY PO 09/14/17 09:00 09/21/17 08:13 (Lipitor) 40 mg HS PO 09/13/17 21:00 09/20/17 20:22 (Lopressor) 25 mg BID PO 09/13/17 21:00 09/21/17 08:13 (Xarelto) 20 mg DAILY PO 09/14/17 09:00 09/21/17 08:14 (Mag-Ox) 400 mg BID@1100,1600 PO 09/13/17 16:00 09/20/17 17:46 (Zofran Odt) 8 mg TID PRN PO 09/13/17 13:00 (Jyoti-Colace) 1 tab BID PO 09/14/17 09:00 09/21/17 08:13 (Milk Of Magnesia Liq) 30 ml Q12H PRN PO 09/14/17 09:00 (Senokot) 17.2 mg Q12H PRN PO 09/14/17 08:30 (Dulcolax Supp) 10 mg DAILY PRN RECTAL 09/14/17 09:00 (Lactulose Liq) 30 ml DAILY PRN PO 09/14/17 09:00 (Bumetanide) 1 mg DAILY PO 09/15/17 17:15 09/21/17 08:14 (Aldactone) 50 mg BID PO 09/15/17 21:00 09/21/17 08:13 (Pill Splitter) 1 ea UNSCH PRN OTHER 09/16/17 11:45 (SEROquel) 25 mg HS PO 09/17/17 21:00 09/20/17 20:22 (Haldol Inj) 2 mg Q6H PRN IM 09/18/17 11:45 (Requip) 5 mg BID PO 09/19/17 21:00 09/21/17 08:13 A/P Problem List: (1) Inability to ambulate due to right hip ICD Code: R26.2 - Difficulty in walking, not elsewhere classified Status: Acute Assessment and Plan 82-year-old female with history of severe aortic stenosis s/p bovine AVR [id number] , CHF, HTN, chronic LE edema, HLD, obesity, TIA, fibromyalgia, presents with inability to ambulate secondary to right hip pain Inability to ambulate with Severe RLE pain: suspect secondary to osteoarthritis. This pain was masked previously by her chronic pain meds and injections that she was receiving for her back and neck pains. -Pelvis and femur xrays reviewed, shows advanced osteoarthritis, no fracture -Doppler U/S negative for DVT -Symptoms improved status post intra-articular steroid injection on 09/14. -Continue pain management with Lortab and morphine. -Continue PT, recommends rehabilitation -pain improving however still difficulty ambulating independently -patient discharged, awaiting insurance authorization for SNF placement Dehydration/poor oral intake: -Oral intake improved -resumed on diuretics. -Continue to monitor - BUN improved. Infiltrate left lung base: seen on CXR. Patient without symptoms of pneumonia. 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 -Started on seroquel per psychiatry, increased dose to 25mg hs -Cleared by psychiatry for discharge to SNF, does not meet criteria for involuntary psychiatric admit -Patient stable for now CHF with Severe Aortic Stenosis s/p Bovine AVR: Dec 2016 -chronic, stable, continue to monitor -continue home meds including spironolactone, Bumex, BB, statin Tachycardia -secondary to medication noncompliance -resolved HTN/HLD: chronic -continue patient's home meds including lipitor, metoprolol TIA, Chronic anticoagulation on Xarelto: -Stable, continue Xarelto DVT Prophylaxis: on Xarelto Discharge Planning Patient is discharged pending acceptance to SNF, awaiting insurance authorization. Case management to assist with discharge planning. 1500hrs: Patient finally accepted to SNF, case management arranged transport to [facility]. Please see discharge summary from 09/17/17. Annie Yanez PA-C Sep 21, 2017 08:49
[2017-09-21 11:17] VITALS: BP 112/57; PULSE 69; RESP 18; TEMP 97.7; O2SAT 97
[2017-09-21] MEDS: MAGNESIUM OXIDE 400 MG TAB PO SCH ×2 (12:18→16:03)
== END 2017-09-21 18:19 | disposition home or self-care (01) ==
LOC: NEPE 06:07 → NEDA 09:48 → NEPHCDU 11:37 → NEPFCDU 09-18 19:08
PROVIDERS: ADMIT Hospitalist; ATTEND Hospitalist
DX: M79.604 Pain in right leg (principal); R26.2 Difficulty in walking, not elsewhere classified; I35.0 Nonrheumatic aortic (valve) stenosis; M16.0 Bilateral primary osteoarthritis of hip; I11.0 Hypertensive heart disease with heart failure; I50.810 Right heart failure, unspecified; E78.5 Hyperlipidemia, unspecified; M79.7 Fibromyalgia; R06.00 Dyspnea, unspecified; Z95.3 Presence of xenogenic heart valve; R60.0 Localized edema; E86.0 Dehydration; F29 Unspecified psychosis not due to a substance or known physiological condition; G89.29 Other chronic pain; F22 Delusional disorders; R00.0 Tachycardia, unspecified; I45.10 Unspecified right bundle-branch block; N28.1 Cyst of kidney, acquired; M47.814 Spondylosis without myelopathy or radiculopathy, thoracic region; E66.9 Obesity, unspecified; Z91.14 Patient's other noncompliance with medication regimen; Z86.718 Personal history of other venous thrombosis and embolism; Z79.899 Other long term (current) drug therapy; Z79.82 Long term (current) use of aspirin; Z79.01 Long term (current) use of anticoagulants; Z86.73 Personal history of transient ischemic attack (TIA), and cerebral infarction without residual deficits; Z96.651 Presence of right artificial knee joint
CPT/HCPCS: 20610; 71010; 71275; 72170; 73552; 74174; 77002; 80048; 82550; 82552; 83605; 83735; 84484; 85025; 85610; 85730; 93005; 93970; 96374; 96376; 97110; 97116; 97162; 97166; 97530; 97535; 99285; G0378; G8987; G8988; J2270; J2795; J3301; Q9967; 77003